=== PATIENT | female | born 1945 | race Caucasian/White ===

== ENCOUNTER 2016-05-20 17:14 | Inpatient (IN) | payer MEDICARE, BC, OTHER ==
[~2016-05-20] VITALS: Ht 162.6 cm; Wt 91.0 kg
[~2016-05-20 17:14] MED LIST: ACET325 PO; AMAR4TAB PO; AMLO5TAB96 PO; ANAS1TAB PO; ASPI81 PO; ATOR40TA PO; BUPR75TA PO; CYMB60CA PO; IMOD2TAB PO; METF-324 PO; NITR0.4S SL; NOVONP2 SQ; NOVORP2 SQ; STOO100C PO; TICA90 PO; TOPR50TA PO
[2016-05-20 17:16] VITALS: BP 190/90; PULSE 113; RESP 14; TEMP 98.4; O2SAT 99
[2016-05-20 17:26] VITALS: RESP 36
[2016-05-20] MEDS ORDERED: SODIUM CHLOR 0.9% 1000 ML INJ 1,000 ML IV ONE ×3 (18:30→20:30)
[2016-05-20] MEDS ORDERED: SODIUM CHLORIDE 0.9% FLUSH 5 ML FLUSH IVF PRN (18:30)
--- NOTE | 2016-05-20 18:33 | PD ---
HPI Chief Complaint: Diabetic Time Seen by Provider: 18:33 Travel History International Travel<30 days: No Contact w/Intl Traveler<30days: No Traveled to known affect area: No History of Present Illness HPI 71-year-old female with history of hypertension, diabetes, CAD with stent 2, sleep apnea, breast cancer status post mastectomy, currently in remission, presents to emergency department for evaluation of elevated blood glucose. Patient states that her blood glucose has been extremely high over the last month, sometimes as high as 540. She states she has not been able to keep anything down over the last 24 hours. She vomited all night. She reports urinary frequency being very thirsty. States she has had some blood in her urine. Denies any fever. States she has been chilled. She has been moderately short of breath with nonproductive cough. Denies any chest pain or tightness. She has been increasingly weak. She has had no headache or focal deficit. No other symptoms to report. PFSH Past Medical History Hx Anticoagulant Therapy: Yes (BRILANTA) Arthritis: Yes Asthma: No Autoimmune Disease: No Anxiety: Yes Depression: Yes Heart Rhythm Problems: No Cancer: Yes (LEFT BREAST) Cardiac Catheterization: Yes (X1 [place] IN [place]) Cardiovascular Problems: Yes (STENTS X 2) High Cholesterol: Yes Chemotherapy: Yes (CHEMO X 2. LAST DOSE 10 YEARS AGO BREAST CANCER.) Chest Pain: No Congestive Heart Failure: No COPD: No Cerebrovascular Accident: Yes Diabetes: Yes (METFORMIN AND INSULIN) Diminished Hearing: No Endocrine: Yes Gastrointestinal Disorders: Yes Genitourinary: No Headaches: Yes Hypertension: Yes Immune Disorder: No Implanted Vascular Access Dvce: No Musculoskeletal: Yes (NEUROPATHY OF LEGS and arms) Neurologic: Yes Psychiatric: Yes Respiratory: Yes (WHOOPING COUGH BABY) Immunizations Current: No Migraines: No Radiation Therapy: Yes Seizures: No Sleep Apnea: Yes Thyroid Disease: No Ulcer: No Menopausal: Yes : 2 Tubal Ligation: Yes Past Surgical History Abdominal Surgery: Yes (TUBAL LIGATION 1983) AICD: No Appendectomy: Yes Body Medical Devices: CARDIAC STENT Cardiac Surgery: Yes Section: Yes (1981) Endocrine Surgery: No Eye Surgery: Yes (MUSCLE RESECTION LT EYE. L EYE CATARACT REMOVED) Gynecologic Surgery: Yes (BILAT PARTIAL MASTECTOMY X2, ) Mastectomy: Yes (left sided) Oral Surgery: Yes (TONSILLECTOMY) Pacemaker: No Tonsillectomy: Yes Other Surgery: Yes (PARTIAL MASTECTOMY ) Social History Alcohol Use: No Tobacco Use: No Substance Use: No Allergies-Medications (Allergen,Severity, Reaction): Coded Allergies: No Known Allergies (Verified , 05/20/16) Reported Meds & Prescriptions Reported Meds & Active Scripts Active Nitrostat (Nitroglycerin) 0.4 Mg Sub 0.4 Mg SL DIRECTED PRN Brilinta 90 Mg Tab (Ticagrelor) 90 Mg Tab 90 Mg PO BID Novolin N (Insulin Isophane (Human)) 100 Units/Ml Inj 38 Units SQ DAILY 30 Days Reported Imodium A-D (Loperamide HCl) 2 Mg Tab 4 Mg PO ONCE PRN DO NOT EXCEED 8 CAPSULES/TABLETS 24 HOURS Novolin R (Insulin Human Regular) 100 Units/Ml Inj 17 Units SQ HS Bupropion Hcl (Bupropion HCl) 75 Mg Tab 75 Mg PO DAILY Atorvastatin 40 mg (Atorvastatin Calcium) 40 Mg Tab 40 Mg PO HS Tylenol (Acetaminophen) 325 Mg Tab 650 Mg PO Q4HR PRN Anastrozole 1 Mg Tab 1 Mg PO DAILY Colace (Docusate Sodium) 100 Mg Cap 100 Mg PO BID Cymbalta (Duloxetine HCl) 60 Mg Cap 60 Mg PO DAILY Glucophage (Metformin HCl) 1,000 Mg Tab 1,000 Mg PO BIDPC Norvasc (Amlodipine Besylate) 5 Mg Tab 5 Mg PO DAILY Aspirin 81 Mg Tab 81 Mg PO DAILY Amaryl (Glimepiride) 4 Mg Tab 4 Mg PO DAILYAC Toprol Xl (Metoprolol Succinate) 50 Mg Tabcr 50 Mg PO DAILY Review of Systems Except as stated in HPI: all other systems reviewed are Neg Physical Exam Narrative GENERAL: Well-nourished female patient, ambulatory with stents, in no acute distress SKIN: Warm and dry. HEAD: Atraumatic. Normocephalic. EYES: Pupils equal and round. Mild scleral icterus. No injection or drainage. ENT: No nasal bleeding or discharge. Mucous membranes pink and moist. NECK: Trachea midline. No JVD. CARDIOVASCULAR: Tachycardic rate and rhythm. No murmur appreciated. RESPIRATORY: Tachypneic. No accessory muscle use. Diminished to auscultation. Breath sounds equal bilaterally. GASTROINTESTINAL: Abdomen rotund, soft, moderate generalized tenderness with palpation. No rebound tenderness. No guarding. Normoactive bowel sounds. MUSCULOSKELETAL: No obvious deformities. No clubbing. No cyanosis. No edema. NEUROLOGICAL: Awake and alert. No obvious cranial nerve deficits. Motor grossly within normal limits. Normal speech. PSYCHIATRIC: Appropriate mood and affect; insight and judgment normal. Data Data Last Documented VS Vital Signs Date Time Temp Pulse Resp B/P Pulse Ox O2 Delivery O2 Flow Rate FiO2 05/20/16 20:24 96 20 173/80 98 Room Air 05/20/16 17:16 98.4 Orders Complete Blood Count With Diff (05/20/16 17:34) Blood Glucose (05/20/16 17:34) Comprehensive Metabolic Panel (05/20/16 17:34) Electrocardiogram (05/20/16 18:27) Chest, Single Ap (05/20/16 18:27) Ecg Monitoring (05/20/16 18:27) Bilateral Bp Monitoring (05/20/16 18:27) Iv Access Insert/Monitor (05/20/16 18:27) Oximetry (05/20/16 18:27) Oxygen Administration (05/20/16 18:27) Sodium Chloride 0.9% Flush (Ns Flush) (05/20/16 18:30) Sodium Chlor 0.9% 1000 Ml Inj (Ns 1000 M (05/20/16 18:30) Urinalysis - C+S If Indicated (05/20/16 18:33) Resp Blood Gas Venous (05/20/16 ) Prothrombin Time / Inr (Pt) (05/20/16 18:34) Act Partial Throm Time (Ptt) (05/20/16 18:34) Lactic Acid Sepsis Protocol (05/20/16 18:34) Magnesium (Mg) (05/20/16 18:34) Ckmb (Isoenzyme) Profile (05/20/16 18:34) Troponin I (05/20/16 18:34) Blood Culture (05/20/16 18:34) Acetaminophen (Tylenol) (05/20/16 19:00) Ct Abd/Pel W Iv Contrast(Rout) (05/20/16 ) Piperacil-Tazo 3.375 Gm Premix (Zosyn 3. (05/20/16 19:15) Blood Gas Venous (Vbg) (05/20/16 17:04) Beta Hydroxybutyrate (Acetone) (05/20/16 18:50) Lipase (05/20/16 18:50) Iohexol 350 Inj (Omnipaque 350 Inj) (05/20/16 19:48) Metronidazole 500 Mg Inj (Flagyl 500 Mg (05/20/16 20:15) Sodium Chlor 0.9% 1000 Ml Inj (Ns 1000 M (05/20/16 20:15) Diet Npo (05/21/16 Breakfast) Complete Blood Count With Diff (05/21/16 06:00) Comprehensive Metabolic Panel (05/21/16 06:00) Sodium Chlor 0.9% 1000 Ml Inj (Ns 1000 M (05/20/16 20:30) Mri Mrcp W/O Contrast (05/20/16 ) Cath For Specimen (05/20/16 20:38) Admit Order (Ed Use Only) (05/20/16 20:48) Urinary Catheter Management [id number].[id number] (05/20/16 20:50) Labs Laboratory Tests Test 05/20/16 05/20/16 05/20/16 05/20/16 17:04 18:15 18:50 20:15 Blood Gas Puncture Site I.V. Blood Gas Patient Temperature 98.6 Venous Blood pH 7.43 Venous Blood Partial Pressure 26 mmHg CO2 Venous Blood Partial Pressure 35 mmHg O2 Venous Blood HCO3 17 mmol/L Venous Blood Oxygen Saturation 65 % Venous Blood Oxygen Content 11.7 Vol % Venous Blood Base Excess -6.5 mmol/L Oxygen Delivery Device ROOM AIR Blood Gas Inspired Oxygen 21 % White Blood Count 13.6 TH/MM3 Red Blood Count 5.35 MIL/MM3 Hemoglobin 13.0 GM/DL Hematocrit 40.5 % Mean Corpuscular Volume 75.6 FL Mean Corpuscular Hemoglobin 24.3 PG Mean Corpuscular Hemoglobin 32.1 % Concent Red Cell Distribution Width 15.7 % Platelet Count 246 TH/MM3 Mean Platelet Volume 8.7 FL Neutrophils (%) (Auto) 83.8 % Lymphocytes (%) (Auto) 6.5 % Monocytes (%) (Auto) 9.2 % Eosinophils (%) (Auto) 0.1 % Basophils (%) (Auto) 0.4 % Neutrophils # (Auto) 11.4 TH/MM3 Lymphocytes # (Auto) 0.9 TH/MM3 Monocytes # (Auto) 1.2 TH/MM3 Eosinophils # (Auto) 0.0 TH/MM3 Basophils # (Auto) 0.1 TH/MM3 CBC Comment AUTO DIFF Differential Comment AUTO DIFF CONFIRMED Platelet Estimate NORMAL Platelet Morphology Comment NORMAL Red Cell Morphology Comment NORMAL Sodium Level 132 MEQ/L Potassium Level 4.2 MEQ/L Chloride Level 99 MEQ/L Carbon Dioxide Level 20.2 MEQ/L Anion Gap 13 MEQ/L Blood Urea Nitrogen 14 MG/DL Creatinine 1.14 MG/DL Estimat Glomerular Filtration 47 ML/MIN Rate Random Glucose 345 MG/DL Calcium Level 9.4 MG/DL Total Bilirubin 6.5 MG/DL Aspartate Amino Transf 377 U/L (AST/SGOT) Alanine Aminotransferase 315 U/L (ALT/SGPT) Alkaline Phosphatase 571 U/L Total Protein 7.3 GM/DL Albumin 3.7 GM/DL Prothrombin Time 12.0 SEC Prothromb Time International 1.1 RATIO Ratio Activated Partial 26.4 SEC Thromboplast Time Lactic Acid Level 3.4 mmol/L Magnesium Level 1.8 MG/DL Total Creatine Kinase 64 U/L Troponin I 0.85 NG/ML Lipase 90 U/L B-Hydroxybutyrate 2.25 MMOL/L Urine Color YELLOW Urine Turbidity CLEAR Urine pH 5.5 Urine Specific [place] 1.044 Urine Protein TRACE mg/dL Urine Glucose (UA) 1000 mg/dL Urine Ketones 80 mg/dL Urine Occult Blood TRACE Urine Nitrite NEG Urine Bilirubin SMALL Urine Urobilinogen LESS THAN 2.0 MG/DL Urine Leukocyte Esterase NEG Urine RBC 2 /hpf Urine WBC 1 /hpf Urine Squamous Epithelial 2 /hpf Cells Urine Bacteria OCC /hpf Urine Mucus FEW /lpf Microscopic Urinalysis Comment CULT NOT INDICATED MDM Medical Decision Making Medical Screen Exam Complete: Yes Emergency Medical Condition: Yes Medical Record Reviewed: Yes Differential Diagnosis DKA versus cholangitis versus cholelithiasis versus UTI versus sepsis Narrative Course 71-year-old female presents to the emergency department for evaluation of elevated blood glucose. Patient is noted to be tachypneic and tachycardic here in the emergency department, she is also with leukocytosis of 13.6. I have discussed the pt with my attending physician Dr. Weir who recommends IV antibiotics of zosyn and flagyl. Sepsis protocol is initiated. CMP is with elevated liver enzymes and bilirubin of 6.5. Lactic Acid is 3.[address] of the abdomen and pelvis shows dilatation of the common bile duct and intrahepatic biliary ductal dilatation. There is no mass or obstruction identified. I spoke with Dr. Michael, associate software application engineer second chef. He requests nothing by mouth, MRCP, CBC and CMP in the morning. I discussed the patient Dr. Morales, director of enrollment second chef. Patient will be admitted to his service Sepsis Criteria SIRS Criteria (2 or more): Heart rate over 90, WBC > 87500, < 4000 or > 10% bands Sepsis Criteria (SIRS+source): Infect source susp/known Severe Sepsis (+one): Lactate >2 Criteria Outcome: Meets severe sepsis criteria Diagnosis Primary Impression: Severe sepsis Additional Impressions: Transaminitis Dilated bile duct Hyperglycemia Elevated troponin Nausea & vomiting Qualified Code: R11.2 - Non-intractable vomiting with nausea, unspecified vomiting type Condition: Stable Gianna Garcia May 20, 2016 18:33
[2016-05-20 18:34] LABS: AUTOMATED NEUTROPHIL # 11.4 TH/MM3 (1.8-7.7); BASOPHIL # 0.1 TH/MM3 (0-0.2); BASOPHIL % 0.4 % (0.0-2.0); EOSINOPHIL % 0.1 % (0.0-4.0); HEMATOCRIT 40.5 % (35.0-46.0); LYMPH % 6.5 % (9.0-44.0); LYMPHOCYTE # 0.9 TH/MM3 (1.0-4.8); MEAN CELL VOLUME 75.6 FL (80.0-100.0); MEAN CORPUSCULAR HEMOGLOBIN 24.3 PG (27.0-34.0); MEAN CORPUSCULAR HGB CONC 32.1 % (32.0-36.0); MONO % 9.2 % (0.0-8.0); NEUT % 83.8 % (16.0-70.0); PLATELET COUNT 246 TH/MM3 (150-450); RED BLOOD COUNT 5.35 MIL/MM3 (4.00-5.30); RED CELL DISTRIBUTION WIDTH 15.7 % (11.6-17.2); WHITE BLOOD COUNT 13.6 TH/MM3 (4.0-11.0)
[2016-05-20 18:35] VITALS: BP 139/75; PULSE 114; RESP 20; O2SAT 98; O2SAT 99
[2016-05-20 18:42] LABS: HEMO FLAGS AUTO DIFF
[2016-05-20 18:56] LABS: ALT (GPT) 315 U/L (10-53); ANION GAP 13 MEQ/L (5-15); AST (GOT) 377 U/L (15-37); BICARBONATE 20.2 MEQ/L (21.0-32.0); BLOOD UREA NITROGEN 14 MG/DL (7-18); CHLORIDE 99 MEQ/L (98-107); GLOMERULAR FILTRATION RATE 47 ML/MIN (>89); POTASSIUM 4.2 MEQ/L (3.5-5.1); SODIUM (NA) 132 MEQ/L (136-145)
[2016-05-20 18:59] LABS: ALKALINE PHOSPHATASE 571 U/L (45-117); TOTAL BILIRUBIN ADULT 6.5 MG/DL (0.2-1.0)
[2016-05-20] MEDS ORDERED: ACETAMINOPHEN 325 MG TAB PO ONE (19:00)
[2016-05-20 19:12] LABS: PLATELET ESTIMATE SMEAR NORMAL (NORMAL); PLATELET MORPHOLOGY NORMAL (NORMAL); SCAN/DIFF AUTO DIFF CONFIRMED
[2016-05-20 19:15] LABS: BLOOD GAS VENOUS BASE EXCESS -6.5 mmol/L (-2-2); BLOOD GAS VENOUS HCO3 17 mmol/L (22-26); BLOOD GAS VENOUS O2 CONTENT 11.7 Vol % (9.0-17.0); BLOOD GAS VENOUS O2 HGB SAT 65 % (70-76); BLOOD GAS VENOUS PCO2 26 mmHg (44-48); BLOOD GAS VENOUS PO2 35 mmHg (35-40); BLOOD GAS VENOUS pH 7.43 (7.360-7.400); CRITICAL VALUE NO; DRAW SITE I.V.; FIO2 21 %; OXYGEN DEVICE ROOM AIR; STAT YES; TEMP CORR TO 98.6
[2016-05-20] MEDS ORDERED: PIPERACIL-TAZO 3.375 GM PREMIX 50 ML IV ONE (19:15)
[2016-05-20 19:45] LABS: APTT (PATIENT) 26.4 SEC (24.3-30.1); INTERNATIONAL NORMALIZED RATIO 1.1 RATIO
--- NOTE | 2016-05-20 19:46 | RADRPT ---
EXAM DATE/TIME: 05/20/2016 18:48 [facility] COMPARISON: CHEST SINGLE AP, June 02, 2015, 13:51. INDICATIONS : Chest pain MEDICAL HISTORY : Hypertension. Diabetes mellitus type II. SURGICAL HISTORY : Cardiac stent,Lumpectomy to left side ENCOUNTER: Initial ACUITY: 3 days PAIN SCORE: 0/10 LOCATION: Bilateral chest FINDINGS: A single view of the chest demonstrates the lungs to be symmetrically aerated without evidence of mas s, infiltrate or effusion. The cardiomediastinal contours are unremarkable. Osseous structures are intact. There are multiple overlying electrocardiogram leads. CONCLUSION: No acute disease. Catracho Haas MD on May 20, 2016 at 19:45 Board Certified Radiologist. This report was verified electronically.
[2016-05-20] MEDS ORDERED: IOHEXOL 350 MG/ML 10 ML VIAL (for RAD DIAG) IV ONE (19:48)
[2016-05-20 19:53] LABS: BETA-HYDROXYBUTYRATE 2.25 MMOL/L (0.00-0.39); MAGNESIUM 1.8 MG/DL (1.5-2.5)
--- NOTE | 2016-05-20 20:01 | RADRPT ---
EXAM DATE/TIME: 05/20/2016 19:41 [facility] COMPARISON: CT ABDOMEN & PELVIS W/O CONTRAST, December 24, 2014, 11:37. US ABDOMEN - GALLBLADDER, June 02, 2015 , 15:15. INDICATIONS : Hematura for three weeks. Known gallstones. IV CONTRAST: 75 cc Omnipaque 350 (iohexol) IV ORAL CONTRAST: No oral contrast ingested. RADIATION DOSE: 11.76 CTDIvol (mGy) MEDICAL HISTORY : Carcinoma, breast. SURGICAL HISTORY : Mastectomy, bilateral. ENCOUNTER: Initial ACUITY: 1 day PAIN SCALE: 0/10 LOCATION: Bilateral abdomen. TECHNIQUE: Volumetric scanning of the abdomen and pelvis was performed. Using automated exposure control and ad justment of the mA and/or kV according to patient size, radiation dose was kept as low as reasonably achievable to obtain optimal diagnostic quality images. FINDINGS: LOWER LUNGS: The visualized lower lungs are clear. LIVER: The liver remains normal in size and shape. There is mild intrahepatic central biliary ductal dilatat ion with prominence of common bile duct now noted measuring up to approximately 1 cm. No definite kuldeep ling defect is identified within the duct. The gallbladder is normal in size and shape with densely c alcified 1 cm gallstone again noted. There is no definite wall thickening or inflammatory change. SPLEEN: Normal size without lesion. PANCREAS: Within normal limits. KIDNEYS: Normal in size and shape. There is no mass, stone or hydronephrosis. ADRENAL GLANDS: Within normal limits. VASCULAR: There is no aortic aneurysm. BOWEL/MESENTERY: There is a small hiatal hernia. The stomach, small bowel, and colon demonstrate no acute abnormality. There is no free intraperitoneal air or fluid. ABDOMINAL WALL: Within normal limits. RETROPERITONEUM: There is no lymphadenopathy. BLADDER: No wall thickening or mass. REPRODUCTIVE: Within normal limits. INGUINAL: There is no lymphadenopathy or hernia. MUSCULOSKELETAL: Within normal limits for patient age. CONCLUSION: 1. The kidneys and ureters are unremarkable in appearance with no renal calculi, mass or hydronephros is. 2. Evidence of mild central intrahepatic biliary ductal dilatation and dilatation of the common bile duct with no definite filling defect or mass identified.. 3. Small hiatal hernia. 4. Cholelithiasis again noted with no gallbladder wall thickening or inflammatory change. Catracho Haas MD on May 20, 2016 at 19:53 Board Certified Radiologist. This report was verified electronically.
[2016-05-20] MEDS ORDERED: metroNIDAZOLE 500 MG INJ 100 ML IV ONE (20:15)
[2016-05-20 20:24] VITALS: BP 173/80; PULSE 96; RESP 20; O2SAT 98
[2016-05-20 20:43] LABS: BACTERIA, URINE OCC /hpf; BLOOD, URINE TRACE (NEG); COMMENT (UR) CULT NOT INDICATED; CULTURE IF INDICATED CULT NOT INDICATED; GLUCOSE,URINE 1000 mg/dL (NEG); KETONE, URINE 80 mg/dL (NEG); MUCUS URINE FEW /lpf (OCC); NITRITE,URINE NEG (NEG); PH, URINE 5.5 (5.0-8.5); SQUAMOUS EPITHELIAL CELL URINE 2 /hpf (0-5); URINE COLOR YELLOW (YELLW/STRAW)
--- NOTE | 2016-05-20 21:17 | HHI.HP ---
HPI Service Critical Care Medicine Primary Care Physician Beltran Syed MD Admission Diagnosis Hyperglycemia; transamintis; nausea/vomiting; elevated trop Diagnosis: Chief Complaint: Vomiting, generalized abdominal pain. Travel History International Travel<30 Days: No Contact w/Intl Traveler <30 Da: No Traveled to Known Affected Are: No History of Present Illness 71 y/o woman with multiple medical problems including DM, HTN, CAD presents with several day history of vomiting and abdominal discomfort/fullness. No substernl cheat pressure or pain (which she gets with angina). LFTs all elevated and consistent with biliary obstruction. CT abdomen with dilated bile ducts, no obvious obstruction. Going now for MRCP. Review of Systems ROS See HPI. Past Family Social History Allergies: Coded Allergies: No Known Allergies (Verified , 05/20/16) Past Medical History Past Medical History Hx Anticoagulant Therapy: Yes (BRILANTA) Arthritis: Yes Asthma: No Autoimmune Disease: No Anxiety: Yes Depression: Yes Heart Rhythm Problems: No Cancer: Yes (LEFT BREAST) Cardiac Catheterization: Yes (X1 STENTS IN [place]) Cardiovascular Problems: Yes (STENTS X 2) High Cholesterol: Yes Chemotherapy: Yes (CHEMO X 2. LAST DOSE 10 YEARS AGO BREAST CANCER.) Chest Pain: No Congestive Heart Failure: No COPD: No Cerebrovascular Accident: Yes Diabetes: Yes (METFORMIN AND INSULIN) Diminished Hearing: No Endocrine: Yes Gastrointestinal Disorders: Yes Genitourinary: No Headaches: Yes Hypertension: Yes Immune Disorder: No Implanted Vascular Access Dvce: No Musculoskeletal: Yes (NEUROPATHY OF LEGS and arms) Neurologic: Yes Psychiatric: Yes Respiratory: Yes (WHOOPING COUGH BABY) Immunizations Current: No Migraines: No Radiation Therapy: Yes Seizures: No Sleep Apnea: Yes Thyroid Disease: No Ulcer: No Menopausal: Yes : 2 Tubal Ligation: Yes Past Surgical History Abdominal Surgery: Yes (TUBAL LIGATION 1983) AICD: No Appendectomy: Yes Body Medical Devices: CARDIAC STENT Cardiac Surgery: Yes Section: Yes (1981) Endocrine Surgery: No Eye Surgery: Yes (MUSCLE RESECTION LT EYE. L EYE CATARACT REMOVED) Gynecologic Surgery: Yes (BILAT PARTIAL MASTECTOMY X2, ) Mastectomy: Yes (left sided) Oral Surgery: Yes (TONSILLECTOMY) Pacemaker: No Tonsillectomy: Yes Other Surgery: Yes (PARTIAL MASTECTOMY ) Social History Alcohol Use: No Tobacco Use: No Substance Use: No Allergies-Medications Allergies-Medications (Allergen,Severity, Reaction): Coded Allergies: No Known Allergies (Verified , 05/20/16) Reported Meds & Prescriptions Reported Meds & Active Scripts Active Nitrostat (Nitroglycerin) 0.4 Mg Sub 0.4 Mg SL DIRECTED PRN Brilinta 90 Mg Tab (Ticagrelor) 90 Mg Tab 90 Mg PO BID Novolin N (Insulin Isophane (Human)) 100 Units/Ml Inj 38 Units SQ DAILY 30 Days Reported Imodium A-D (Loperamide HCl) 2 Mg Tab 4 Mg PO ONCE PRN DO NOT EXCEED 8 CAPSULES/TABLETS 24 HOURS Novolin R (Insulin Human Regular) 100 Units/Ml Inj 17 Units SQ HS Bupropion Hcl (Bupropion HCl) 75 Mg Tab 75 Mg PO DAILY Atorvastatin 40 mg (Atorvastatin Calcium) 40 Mg Tab 40 Mg PO HS Tylenol (Acetaminophen) 325 Mg Tab 650 Mg PO Q4HR PRN Anastrozole 1 Mg Tab 1 Mg PO DAILY Colace (Docusate Sodium) 100 Mg Cap 100 Mg PO BID Cymbalta (Duloxetine HCl) 60 Mg Cap 60 Mg PO DAILY Glucophage (Metformin HCl) 1,000 Mg Tab 1,000 Mg PO BIDPC Norvasc (Amlodipine Besylate) 5 Mg Tab 5 Mg PO DAILY Aspirin 81 Mg Tab 81 Mg PO DAILY Amaryl (Glimepiride) 4 Mg Tab 4 Mg PO DAILYAC Toprol Xl (Metoprolol Succinate) 50 Mg Tabcr 50 Mg PO DAILY Physical Exam Vital Signs Vital Signs Date Time Temp Pulse Resp B/P Pulse Ox O2 Delivery O2 Flow Rate FiO2 05/20/16 20:24 96 20 173/80 98 Room Air 05/20/16 18:35 114 20 139/75 99 Room Air 05/20/16 18:35 98 Room Air 05/20/16 18:35 99 Room Air 05/20/16 18:35 114 20 98 Room Air 05/20/16 17:26 36 05/20/16 17:16 98.4 113 14 190/90 99 Room Air Physical Exam Gen: Ill-appearing elderly woman in acute distress Head: Atraumatic, mucus membranes dry. Neck: Supple, airway widely patent. Lungs: Clear, no wheezes or crackles. Heart: RRR, no m,r. Neck veins flat. Abdomen: Soft, large. No peritoneal irritation. BS active. Minimal tenderness upper abdomen. Extremities: Warm, well perfused. No edema. Skin: Poor turgor. Neuro: O X 3, cooperative. Moves 4 limbs to command. Speech clear. Laboratory Laboratory Tests Test 05/20/16 05/20/16 05/20/16 05/20/16 17:04 18:15 18:50 20:15 Blood Gas Puncture Site I.V. Blood Gas Patient Temperature 98.6 Venous Blood pH 7.43 Venous Blood Partial Pressure 26 CO2 Venous Blood Partial Pressure 35 O2 Venous Blood HCO3 17 Venous Blood Oxygen Saturation 65 Venous Blood Oxygen Content 11.7 Venous Blood Base Excess -6.5 Oxygen Delivery Device ROOM AIR Blood Gas Inspired Oxygen 21 White Blood Count 13.6 Red Blood Count 5.35 Hemoglobin 13.0 Hematocrit 40.5 Mean Corpuscular Volume 75.6 Mean Corpuscular Hemoglobin 24.3 Mean Corpuscular Hemoglobin 32.1 Concent Red Cell Distribution Width 15.7 Platelet Count 246 Mean Platelet Volume 8.7 Neutrophils (%) (Auto) 83.8 Lymphocytes (%) (Auto) 6.5 Monocytes (%) (Auto) 9.2 Eosinophils (%) (Auto) 0.1 Basophils (%) (Auto) 0.4 Neutrophils # (Auto) 11.4 Lymphocytes # (Auto) 0.9 Monocytes # (Auto) 1.2 Eosinophils # (Auto) 0.0 Basophils # (Auto) 0.1 CBC Comment AUTO DIFF Differential Comment AUTO DIFF CONFIRMED Platelet Estimate NORMAL Platelet Morphology Comment NORMAL Red Cell Morphology Comment NORMAL Sodium Level 132 Potassium Level 4.2 Chloride Level 99 Carbon Dioxide Level 20.2 Anion Gap 13 Blood Urea Nitrogen 14 Creatinine 1.14 Estimat Glomerular Filtration 47 Rate Random Glucose 345 Calcium Level 9.4 Total Bilirubin 6.5 Aspartate Amino Transf 377 (AST/SGOT) Alanine Aminotransferase 315 (ALT/SGPT) Alkaline Phosphatase 571 Total Protein 7.3 Albumin 3.7 Prothrombin Time 12.0 Prothromb Time International 1.1 Ratio Activated Partial 26.4 Thromboplast Time Lactic Acid Level 3.4 Magnesium Level 1.8 Total Creatine Kinase 64 Troponin I 0.85 Lipase 90 B-Hydroxybutyrate 2.25 Urine Color YELLOW Urine Turbidity CLEAR Urine pH 5.5 Urine Specific [place] 1.044 Urine Protein TRACE Urine Glucose (UA) 1000 Urine Ketones 80 Urine Occult Blood TRACE Urine Nitrite NEG Urine Bilirubin SMALL Urine Urobilinogen LESS THAN 2.0 Urine Leukocyte Esterase NEG Urine RBC 2 Urine WBC 1 Urine Squamous Epithelial 2 Cells Urine Bacteria OCC Urine Mucus FEW Microscopic Urinalysis Comment CULT NOT INDICATED Date/Time Procedure Status Source Growth 05/20/16 18:55 Aerobic Blood Culture Received Blood Peripheral Pending 05/20/16 18:55 Anaerobic Blood Culture Received Blood Peripheral Pending Result Diagram: 05/20/16181405/20/161814 Assessment and Plan Problem List: (1) Transaminitis ICD Code: R74.0 Status: Acute (2) Elevated troponin ICD Code: R79.89 Status: Acute (3) Dilated bile duct ICD Code: K83.8 Status: Acute (4) Severe sepsis ICD Code: A41.9 Status: Acute (5) Hyperglycemia ICD Code: R73.9 Status: Acute (6) Nausea & vomiting ICD Code: R11.2 Status: Acute (7) Hypertension ICD Code: I10 Status: Acute (8) NSTEMI (non-ST elevation myocardial infarction) ICD Code: I21.4 Status: Acute (9) Diabetes mellitus ICD Code: E11.9 Status: Acute Assessment and Plan Plan: CV: Cardene drip until she can tolerate oral meds. Aggressive hydration. Follow cardiac markers, RESP: Suppl O2 to keep sats > 91% NEURO: Minimal sedation. RENAL: Hydration with isotonic solution. ENDO: Levemir and q6h coverage. Hold oral agents. GI: NPO except meds with sips. : Niño for hourly output. HEME: Serial wbc. ID: Cultures. Broad abx coverage for biliary infection. Check urine. PX: Pepcid, heparin TID. Overall impression: Critically ill with dehydration despite renal indices. Severe sepsis and probable biliary obstruction. Diabetes out of control, elevated lactic acid. Critical care 45 mins aside from procedures Problem Qualifiers (1) Nausea & vomiting: Qualified Code: R11.2 - Non-intractable vomiting with nausea, unspecified vomiting type Serge Alexander MD May 20, 2016 21:17
[2016-05-20 21:25] LABS: LACTIC ACID GHOST NOT REPORTABLE
[2016-05-20] MEDS ORDERED: CHLORHEXIDINE GLUCONATE 2 % 1 PACK (2 CLOTHS) TOP PRN (21:30)
[2016-05-20] MEDS ORDERED: ACETAMINOPHEN 325 MG TAB PO PRN ×2 (21:30→22:00)
[2016-05-20] MEDS ORDERED: SODIUM CHLORIDE 0.9% FLUSH 5 ML FLUSH IV FLUSH PRN (21:30)
[2016-05-20] MEDS ORDERED: GLUCAGON 1 MG/ML VIAL OTHER PRN (21:30)
[2016-05-20] MEDS ORDERED: DEXTROSE 50% IN WATER 50 ML VIAL(D50) IV PUSH PRN (21:30)
[2016-05-20] MEDS ORDERED: ONDANSETRON HCL 4 MG/2 ML VIAL IV PRN (22:00)
[2016-05-20] MEDS ORDERED: niCARdipine INJ 25 MG in SODIUM CHLOR 0.9% 250 ML INJ 250 ML IV PRN (22:00)
[2016-05-20] MEDS ORDERED: RESP: ALBUTEROL 2.5 MG/IPRATROPIUM 0.5 MG NEB (PRN) INH (22:00)
[2016-05-20] MEDS ORDERED: MISCELLANEOUS NURSING INFORMATION XX SCH (22:00)
[2016-05-20 22:36] VITALS: BP 113/56; PULSE 94; RESP 20; O2SAT 94
--- NOTE | 2016-05-20 22:49 | RADRPT ---
EXAM DATE/TIME: 05/20/2016 21:23 [facility] COMPARISON: CT ABDOMEN & PELVIS W CONTRAST, May 20, 2016, 19:41. INDICATIONS : Obstruction. MEDICAL HISTORY : Carcinoma, breast. SURGICAL HISTORY : Tonsillectomy. Appendectomy. ENCOUNTER: Initial ACUITY: 1 week PAIN SCORE: 7/10 LOCATION: Bilateral upper quadrant abdomen area. TECHNIQUE: Multiplanar, multisequence magnetic resonance imaging of the abdomen was performed. High-resolution 3D dataset was utilized to reconstruct maximum-intensity projection (MIP) images. FINDINGS: INTRAHEPATIC BILE DUCTS: There is mild central intrahepatic biliary ductal dilatation with no filling defects. EXTRAHEPATIC BILE DUCTS: The common bile duct measures up to 1.2 cm in diameter. There are 2 filling defects in the distal erik t. The larger measures up to approximately 9 x 9 mm. There is a smaller more distal 3 x 3 mm defect. GALLBLADDER: A 1 cm gallstone is again noted. There is no gallbladder wall thickening or pericholecystic fluid. LIVER: Normal size and signal intensity. No concerning liver lesion is identified on this non-contrast exam. PANCREAS: The main pancreatic duct is normal in size. There is no significant anatomical variant. Signal inte nsity is within normal limits. No mass is visualized on this non-contrast exam. OTHER: The remaining visualized structures demonstrate no acute abnormality on this non-contrast exam. CONCLUSION: 1. Dilatation of the common bile duct and central intrahepatic biliary system with multiple filling d efects in the distal common bile duct most consistent with gallstones. 2. Cholelithiasis. Catracho Haas MD on May 20, 2016 at 22:44 Board Certified Radiologist. This report was verified electronically.
[2016-05-20] MEDS: metroNIDAZOLE 500 MG INJ 100 ML IV SCH (23:27)
[2016-05-20 23:30] VITALS: BP 145/65; PULSE 81; PULSE 86; RESP 17; TEMP 99.2; O2SAT 100
[2016-05-21] VITALS (15 sets, daily range): BP systolic 94–191; BP diastolic 68–96; PULSE 73–106; RESP 14–20; TEMP 98.3–99.2; O2SAT 94–99
[2016-05-21] MEDS: HEPARIN SODIUM - SQ 10,000 UNITS/ML VIAL SQ SCH ×4 (00:01→20:46)
[2016-05-21] MEDS: INSULIN DETEMIR 100 UNITS/ML VIAL SQ SCH ×3 (00:01→20:45)
[2016-05-21] MEDS: INSULIN ASPART SUPPLEMENTAL SCALE SQ SCH ×5 (00:01→20:46)
[2016-05-21] MEDS: CHLORHEXIDINE GLUCONATE 2 % 1 PACK (2 CLOTHS) TOP SCH (04:00)
[2016-05-21 04:05] LABS: AUTOMATED NEUTROPHIL # 6.7 TH/MM3 (1.8-7.7); BASOPHIL % 0.3 % (0.0-2.0); EOSINOPHIL % 0.3 % (0.0-4.0); LYMPH % 9.1 % (9.0-44.0); LYMPHOCYTE # 0.8 TH/MM3 (1.0-4.8); MEAN CELL VOLUME 75.8 FL (80.0-100.0); MEAN CORPUSCULAR HEMOGLOBIN 24.7 PG (27.0-34.0); MEAN CORPUSCULAR HGB CONC 32.6 % (32.0-36.0); MONO % 12.2 % (0.0-8.0); NEUT % 78.1 % (16.0-70.0); PLATELET COUNT 189 TH/MM3 (150-450); RED BLOOD COUNT 4.62 MIL/MM3 (4.00-5.30); WHITE BLOOD COUNT 8.6 TH/MM3 (4.0-11.0)
[2016-05-21 04:08] LABS: HEMO FLAGS AUTO DIFF
[2016-05-21 04:10] LABS: ALKALINE PHOSPHATASE 459 U/L (45-117); ALT (GPT) 218 U/L (10-53); ANION GAP 11 MEQ/L (5-15); AST (GOT) 226 U/L (15-37); BICARBONATE 19.2 MEQ/L (21.0-32.0); BLOOD UREA NITROGEN 10 MG/DL (7-18); CHLORIDE 109 MEQ/L (98-107); GLOMERULAR FILTRATION RATE 67 ML/MIN (>89); MAGNESIUM 1.9 MG/DL (1.5-2.5); POTASSIUM 3.6 MEQ/L (3.5-5.1); SODIUM (NA) 139 MEQ/L (136-145)
[2016-05-21 04:15] LABS: TOTAL BILIRUBIN ADULT 5.6 MG/DL (0.2-1.0)
[2016-05-21] MEDS: metroNIDAZOLE 500 MG INJ 100 ML IV SCH ×4 (04:48→20:47)
[2016-05-21] MEDS: PIPERACIL-TAZO 3.375 GM PREMIX 50 ML IV SCH ×3 (04:49→20:45)
[2016-05-21 04:57] LABS: OVALOCYTES 1+ (NORMAL); SCAN/DIFF AUTO DIFF CONFIRMED
[2016-05-21] MEDS: DOCUSATE SODIUM 100 MG CAP PO SCH ×2 (09:00→20:47)
[2016-05-21] MEDS: ANASTROZOLE 1 MG TAB PO SCH (09:05)
[2016-05-21] MEDS: METOPROLOL SUCCINATE 50 MG EXTENDED RELEASE TAB PO SCH (09:05)
[2016-05-21] MEDS: buPROPion HCL 75 MG TAB PO SCH (09:06)
[2016-05-21] MEDS: ASPIRIN 81 MG CHEW TAB PO SCH (09:06)
[2016-05-21] MEDS: TICAGRELOR 90 MG TAB PO SCH ×2 (09:06→20:46)
[2016-05-21] MEDS: amLODIPine BESYLATE 5 MG TAB PO SCH (09:06)
[2016-05-21] MEDS: PANTOPRAZOLE SODIUM 40 MG VIAL IV SCH (09:06)
[2016-05-21] MEDS: DULoxetine HCl DR 60 MG CAP PO SCH (09:06)
[2016-05-21] MEDS: SODIUM CHLORIDE 0.9% FLUSH 5 ML FLUSH IV FLUSH SCH ×2 (09:07→20:45)
[2016-05-21] MEDS: SODIUM CHLOR 0.9% 1000 ML INJ 1,000 ML IV SCH ×3 (09:07→17:52)
--- NOTE | 2016-05-21 09:23 | PD.CONS ---
HPI History of Present Illness This is a 71 year old female patient who came to the emergency room for evaluation of nausea, vomiting, and abdominal pain. She reports that her symptoms began suddenly Friday night. She reports that she started having diffuse abdominal pain which she describes as a severe dull ache Friday night. There is no radiation. She did have associated nausea and vomiting with bilious material but no hematemesis. She took Pepto-Bismol and after about 5 hours she was able to get a little bit of sleep, but she woke up again with severe pain and therefore decided to come to the emergency room. She denies any fevers or chills. She denies any diarrhea. She has lost about 11 pounds over the past 3 months but states this is related to diet changes and was intentional. She denies any history of gallbladder issues or pancreatitis. She does have a history of breast cancer 2 treated with bilateral partial mastectomy, chemotherapy, and radiation. She reports she's been in remission for 6 years. On admission she was noted to have elevated LFTs with an obstructive pattern. CT scan abdomen and pelvis with IV contrast (05/20/16) revealed the kidneys and ureters are unremarkable in appearance with no renal calculi, mass, or hydronephrosis, evidence of mild central intrahepatic biliary ductal dilatation and dilation of the common bile duct with no definite filling defect or mass identified, small hiatal hernia, cholelithiasis again noted with no gallbladder wall thickening or inflammatory change. MRCP without contrast () revealed dilation of the common bile duct and central intrahepatic biliary system with multiple filling defects in the distal common bile duct most consistent with gallstones, cholelithiasis. D/W patient and daughter (by phone) findings, recommendations for ERCP with possible sphincterotomy, possible stent placement- procedure, risk (including increased risk of bleeding given the fact that shes been on Brilinta, and risk of pancreatitis from the dye ), benefit. Both the patient and the daughter verbalized understanding and are agreeable. (Rosmery Montenegro) PFSH Past Medical History Hypertension Diabetes Coronary artery disease Neuropathy History of breast cancer 2 (status post bilateral partial mastectomy/ chemotherapy/radiation) Obstructive sleep apnea Hyperlipidemia Anxiety/depression Past Surgical History Hernia catheterization with stent placement Bilateral partial mastectomy Tonsillectomy Nesmith tubal ligation Left cataract surgery (Rosmery Monten[place]ro) Coded Allergies: No Known Allergies (Verified , 05/20/16) Medications Allergies Coded Allergies Type Severity Reaction Last Updated Verified No Known Allergies 05/20/16 Yes Active Scripts Medications Dose Route/Sig Days Date Category Dose Instructions Nitrostat (Nitroglycerin) 0.4 Mg Sub 0.4 Mg SL DIRECTED PRN 06/06/15 Rx Brilinta 90 Mg Tab (Ticagrelor) 90 Mg Tab 90 Mg PO BID 06/06/15 Rx Novolin N (Insulin Isophane (Human)) 100 Units/Ml Inj 38 Units SQ DAILY 30 06/06/15 Rx Imodium A-D (Loperamide HCl) 2 Mg Tab 4 Mg PO ONCE PRN 06/02/15 Reported DO NOT EXCEED 8 CAPSULES/TABLETS 24 HOURS Novolin R (Insulin Human Regular) 100 Units/Ml Inj 17 Units SQ HS 06/02/15 Reported Bupropion Hcl (Bupropion HCl) 75 Mg Tab 75 Mg PO DAILY 06/02/15 Reported Atorvastatin 40 mg (Atorvastatin Calcium) 40 Mg Tab 40 Mg PO HS 06/02/15 Reported Tylenol (Acetaminophen) 325 Mg Tab 650 Mg PO Q4HR PRN 07/29/12 Reported Anastrozole 1 Mg Tab 1 Mg PO DAILY 07/27/12 Reported Colace (Docusate Sodium) 100 Mg Cap 100 Mg PO BID 02/27/10 Reported Cymbalta (Duloxetine HCl) 60 Mg Cap 60 Mg PO DAILY 02/27/10 Reported Glucophage (Metformin HCl) 1,000 Mg Tab 1,000 Mg PO BIDPC 02/27/10 Reported Norvasc (Amlodipine Besylate) 5 Mg Tab 5 Mg PO DAILY 02/27/10 Reported Aspirin 81 Mg Tab 81 Mg PO DAILY 02/27/10 Reported Amaryl (Glimepiride) 4 Mg Tab 4 Mg PO DAILYAC 02/27/10 Reported Toprol Xl (Metoprolol Succinate) 50 Mg Tabcr 50 Mg PO DAILY 02/27/10 Reported Family History No family history of known cancer Social History No tobacco or illicit drug use or alcohol (oRsmery Monten[place]ro) Review of Systems Constitutional: COMPLAINS OF: Fatigue, Weight loss (plan), Change in appetite, DENIES: Fever, Chills Respiratory: DENIES: Cough, Shortness of breath Cardiovascular: DENIES: Chest pain Gastrointestinal: COMPLAINS OF: Abdominal pain, Nausea, Vomiting, Heartburn, Hematemesis (belching), DENIES: Black stools, Bloody stools, Constipation, Diarrhea Musculoskeletal: DENIES: Joint pain Integumentary: COMPLAINS OF: Pruritus, DENIES: Rash Hematologic/lymphatic: DENIES: Bruising Psychiatric: DENIES: Confusion (Rosmery Monten[place]) GI Exam Vitals I&O Vital Signs Date Time Temp Pulse Resp B/P Pulse Ox O2 Delivery O2 Flow Rate FiO2 05/21/16 06:00 106 05/21/16 06:00 106 14 143/75 94 05/21/16 05:00 97 14 181/77 95 05/21/16 04:00 105 05/21/16 04:00 98.8 105 14 94/70 99 05/21/16 03:00 104 14 136/73 96 05/21/16 02:00 96 21 05/21/16 02:00 93 16 138/78 99 05/21/16 02:00 93 05/21/16 01:00 97 16 149/68 97 05/21/16 00:00 99.2 85 16 125/73 99 05/21/16 00:00 93 05/20/16 23:30 81 05/20/16 23:30 99.2 86 17 145/65 100 05/20/16 22:36 94 20 113/56 94 Room Air 05/20/16 20:24 96 20 173/80 98 Room Air 05/20/16 18:35 114 20 139/75 99 Room Air 05/20/16 18:35 98 Room Air 05/20/16 18:35 99 Room Air 05/20/16 18:35 114 20 98 Room Air 05/20/16 17:26 36 05/20/16 17:16 98.4 113 14 190/90 99 Room Air I/O 05/20/16 05/20/16 05/20/16 05/21/16 05/21/16 05/21/16 07:00 15:00 23:00 07:00 15:00 23:00 Intake Total 2763 ml Output Total 1350 ml Balance 1413 ml Intake IV Total 2763 ml Output Urine Total 1350 ml # Bowel Movements 0 Imaging Last Impressions Chest X-Ray 05/20/161826 Signed Impressions: Service Date/Time: Friday, May 20, 2016 18:48 - CONCLUSION: No acute disease. Catracho Haas MD Cholangiopancreatography MRI 05/20/16 0000 Signed Impressions: Service Date/Time: Friday, May 20, 2016 21:23 - CONCLUSION: 1. Dilatation of the common bile duct and central intrahepatic biliary system with multiple filling defects in the distal common bile duct most consistent with gallstones. 2. Cholelithiasis. Catracho Haas MD Abdomen/Pelvis CT 05/20/16 0000 Signed Impressions: Service Date/Time: Friday, May 20, 2016 19:41 - CONCLUSION: 1. The kidneys and ureters are unremarkable in appearance with no renal calculi, mass or hydronephrosis. 2. Evidence of mild central intrahepatic biliary ductal dilatation and dilatation of the common bile duct with no definite filling defect or mass identified.. 3. Small hiatal hernia. 4. Cholelithiasis again noted with no gallbladder wall thickening or inflammatory change. Catracho Haas MD Laboratory Test 05/20/16 05/20/16 05/20/16 05/20/16 17:04 18:15 18:50 20:15 Blood Gas Puncture Site I.V. Blood Gas Patient Temperature 98.6 Venous Blood pH 7.43 Venous Blood Partial Pressure 26 mmHg CO2 Venous Blood Partial Pressure 35 mmHg O2 Venous Blood HCO3 17 mmol/L Venous Blood Oxygen Saturation 65 % Venous Blood Oxygen Content 11.7 Vol % Venous Blood Base Excess -6.5 mmol/L Oxygen Delivery Device ROOM AIR Blood Gas Inspired Oxygen 21 % White Blood Count 13.6 TH/MM3 Red Blood Count 5.35 MIL/MM3 Hemoglobin 13.0 GM/DL Hematocrit 40.5 % Mean Corpuscular Volume 75.6 FL Mean Corpuscular Hemoglobin 24.3 PG Mean Corpuscular Hemoglobin 32.1 % Concent Red Cell Distribution Width 15.7 % Platelet Count 246 TH/MM3 Mean Platelet Volume 8.7 FL Neutrophils (%) (Auto) 83.8 % Lymphocytes (%) (Auto) 6.5 % Monocytes (%) (Auto) 9.2 % Eosinophils (%) (Auto) 0.1 % Basophils (%) (Auto) 0.4 % Neutrophils # (Auto) 11.4 TH/MM3 Lymphocytes # (Auto) 0.9 TH/MM3 Monocytes # (Auto) 1.2 TH/MM3 Eosinophils # (Auto) 0.0 TH/MM3 Basophils # (Auto) 0.1 TH/MM3 CBC Comment AUTO DIFF Differential Comment AUTO DIFF CONFIRMED Platelet Estimate NORMAL Platelet Morphology Comment NORMAL Red Cell Morphology Comment NORMAL Sodium Level 132 MEQ/L Potassium Level 4.2 MEQ/L Chloride Level 99 MEQ/L Carbon Dioxide Level 20.2 MEQ/L Anion Gap 13 MEQ/L Blood Urea Nitrogen 14 MG/DL Creatinine 1.14 MG/DL Estimat Glomerular Filtration 47 ML/MIN Rate Random Glucose 345 MG/DL Calcium Level 9.4 MG/DL Total Bilirubin 6.5 MG/DL Aspartate Amino Transf 377 U/L (AST/SGOT) Alanine Aminotransferase 315 U/L (ALT/SGPT) Alkaline Phosphatase 571 U/L Total Protein 7.3 GM/DL Albumin 3.7 GM/DL Prothrombin Time 12.0 SEC Prothromb Time International 1.1 RATIO Ratio Activated Partial 26.4 SEC Thromboplast Time Lactic Acid Level 3.4 mmol/L Magnesium Level 1.8 MG/DL Total Creatine Kinase 64 U/L Troponin I 0.85 NG/ML Lipase 90 U/L B-Hydroxybutyrate 2.25 MMOL/L Urine Color YELLOW Urine Turbidity CLEAR Urine pH 5.5 Urine Specific [place] 1.044 Urine Protein TRACE mg/dL Urine Glucose (UA) 1000 mg/dL Urine Ketones 80 mg/dL Urine Occult Blood TRACE Urine Nitrite NEG Urine Bilirubin SMALL Urine Urobilinogen LESS THAN 2.0 MG/DL Urine Leukocyte Esterase NEG Urine RBC 2 /hpf Urine WBC 1 /hpf Urine Squamous Epithelial 2 /hpf Cells Urine Bacteria OCC /hpf Urine Mucus FEW /lpf Microscopic Urinalysis Comment CULT NOT INDICATED Test 05/20/16 05/20/16 05/21/16 22:27 23:10 03:05 Lactic Acid Level 1.7 mmol/L 0.9 mmol/L Troponin I 0.56 NG/ML 0.36 NG/ML Nasal Screen MRSA (PCR) NEGATIVE White Blood Count 8.6 TH/MM3 Red Blood Count 4.62 MIL/MM3 Hemoglobin 11.4 GM/DL Hematocrit 35.0 % Mean Corpuscular Volume 75.8 FL Mean Corpuscular Hemoglobin 24.7 PG Mean Corpuscular Hemoglobin 32.6 % Concent Red Cell Distribution Width 16.0 % Platelet Count 189 TH/MM3 Mean Platelet Volume 9.2 FL Neutrophils (%) (Auto) 78.1 % Lymphocytes (%) (Auto) 9.1 % Monocytes (%) (Auto) 12.2 % Eosinophils (%) (Auto) 0.3 % Basophils (%) (Auto) 0.3 % Neutrophils # (Auto) 6.7 TH/MM3 Lymphocytes # (Auto) 0.8 TH/MM3 Monocytes # (Auto) 1.0 TH/MM3 Eosinophils # (Auto) 0.0 TH/MM3 Basophils # (Auto) 0.0 TH/MM3 CBC Comment AUTO DIFF Differential Comment AUTO DIFF CONFIRMED Ovalocytes 1+ Sodium Level 139 MEQ/L Potassium Level 3.6 MEQ/L Chloride Level 109 MEQ/L Carbon Dioxide Level 19.2 MEQ/L Anion Gap 11 MEQ/L Blood Urea Nitrogen 10 MG/DL Creatinine 0.84 MG/DL Estimat Glomerular Filtration 67 ML/MIN Rate Random Glucose 199 MG/DL Calcium Level 8.4 MG/DL Phosphorus Level 2.1 MG/DL Magnesium Level 1.9 MG/DL Total Bilirubin 5.6 MG/DL Aspartate Amino Transf 226 U/L (AST/SGOT) Alanine Aminotransferase 218 U/L (ALT/SGPT) Alkaline Phosphatase 459 U/L Total Protein 6.0 GM/DL Albumin 3.0 GM/DL Date/Time Procedure Status Source Growth 05/20/16 18:55 Aerobic Blood Culture Received Blood Peripheral Pending 05/20/16 18:55 Anaerobic Blood Culture Received Blood Peripheral Pending Physical Examination HEENT: Normocephalic; atraumatic; + jaundice. Throat is clear. NECK: Neck is supple, no JVD, no lymphadenopathy. CHEST: CTA CARDIAC: RRR ABDOMEN: Soft, nondistended, mild diffuse tenderness; no hepatosplenomegaly; bowel sounds are present in all four quadrants. EXTREMITIES: No clubbing, cyanosis, or edema. SKIN: Normal; no rash; no jaundice. FLUID POWER MECHANIC: No focal deficits; alert and oriented times three. (Rosmery Monten[place]) Assessment and Plan Plan ASSESSMENT: - Abdominal pain, nausea, vomiting with elevated LFTs and imaging consistent with choledocholithiasis. CT scan abdomen and pelvis with IV contrast (05/20/16) revealed the kidneys and ureters are unremarkable in appearance with no renal calculi, mass, or hydronephrosis, evidence of mild central intrahepatic biliary ductal dilatation and dilation of the common bile duct with no definite filling defect or mass identified, small hiatal hernia, cholelithiasis again noted with no gallbladder wall thickening or inflammatory change. MRCP without contrast (05/20/16) revealed dilation of the common bile duct and central intrahepatic biliary system with multiple filling defects in the distal common bile duct most consistent with gallstones, cholelithiasis. LFTs total bilirubin 6.5, AST 377, ALT 315 , alkaline phosphatase 571. Afebrile with normal WBC this am. D/W patient and daughter (by phone) findings, recommendations for ERCP with possible sphincterotomy, possible tent placement- procedure, risk (including increased risk of bleeding given the fact that shes been on Brilinta, and risk of pancreatitis from the dye), benefit. Both the patient and the daughter verbalized understanding and are agreeable. - Elevated LFTs, most likely secondary to choledocholithiasis. Will need ERCP. Rpt. labs today. - Cholelithiasis, choledocholithiasis. ERCP today. - CAD with hx of stent placement on Brilinta. Last had yesterday am, maybe the day prior per patient. - Elevated Troponin, mild. Per CCM - CHANELLE, hyponatremia. Mild. - Diabetes, hypertension, hyperlipidemia, anxiety/depression per primary PLAN: - Plan for ERCP with possible sphincterotomy, possible stent placement - Obtain consents - NPO except medications - IVF - PPI - Zosyn - LFT this am - CBC, CMP in am - Supportive care - Further recommendations to follow based on results of above - Pt seen and examined by Dr. Arboleda and myself and this note is written on his behalf (Rosmery Montenegro) Physician Comments Patient seen and examined Agree with above Continue with current supportive care Monitor labs ERCP today (Abhijit Arboleda MD) Rosmery Montenegro May 21, 2016 09:23 Abhijit Arboleda MD May 21, 2016 16:42
[2016-05-21 09:45] LABS: INDIRECT BILIRUBIN 1.2 MG/DL (0.0-0.8); TOTAL BILIRUBIN ADULT 5.6 MG/DL (0.2-1.0)
--- NOTE | 2016-05-21 14:08 | EKG ---
Date Performed: 05/20/2016 Time Performed: 17:59:42 PTAGE: 71 years EKG: SINUS TACHYCARDIA INFERIOR MYOCARDIAL INFARCTION ABNORMAL ECG INTERPRETATION BASED ON A DEF AMENA AGE OF 40 YEARS PREVIOUS TRACING : 05/20/2016 17.58 Since previous tracing, no significant change noted DOCTOR: Shaw Pandya Interpretating Date/Time 05/21/2016 14:00:41
[2016-05-21] MEDS ORDERED: IOHEXOL 350 MG/ML 100 ML BTL (for Cath Lab) OTHER ONE (15:00)
[2016-05-21] MEDS ORDERED: PROPOFOL 200 MG/20 ML AMP IV ONE (15:06)
[2016-05-21] MEDS ORDERED: GLUCAGON 1 MG/ML VIAL IV ONE (15:15)
[2016-05-21] MEDS ORDERED: DO NOT ADM ANY ANTICOAGULANT DRUGS XX PRN (15:45)
--- NOTE | 2016-05-21 16:44 | PD.PROCEDR ---
GI Procedure REFERRING PHYSICIAN Dr. Alexander PROCEDURE PERFORMED ERCP with sphincterotomy and balloon extraction INDICATION FOR PROCEDURE Choledocholithiasis PROCEDURE: The procedure, risks and benefits were discussed with Ms. Davsi and informed consent was obtained. Anesthesia sedated her with Diprivan. She was placed in the left lateral decubitus position. ERCP: Patient was placed in a prone position. The Pentax videoscope was introduced through the oropharynx and advanced to the second portion of the duodenum where the ampula was identified. FINDINGS: The ampulla was identified this appeared to be unremarkable and within normal limits we obtained initial cannulation of the pancreatic duct which appeared to be normal in its head and body portions then we were able to obtain cannulation of the common bile duct that had filling defects and was dilated a generous sphincterotomy was performed and using 15 mm balloon we were able to extract 3 stones 1 was big 2 were small to medium in size there were no further filling defects noted in the common bile duct and as such the procedure was terminated the gallbladder was not visualized and the intrahepatics were unremarkable ESTIMATED BLOOD LOSS: None SPECIMENS REMOVED: None COMPLICATIONS: None IMPRESSION: Choledocholithiasis PLAN: Supportive care Laparoscopic cholecystectomy Abhijit Arboleda MD May 21, 2016 16:44
--- NOTE | 2016-05-21 17:11 | RADRPT ---
EXAM DATE/TIME: 05/21/2016 15:16 [facility] COMPARISON: MRCP W/O CONTRAST, May 20, 2016, 21:23. INDICATIONS : Stone removal FLUORO TIME: 2.25 minutes IMAGE COUNT: 5 CONTRAST: Instilled by Ordering Physician MEDICAL HISTORY : Carcinoma, breast. SURGICAL HISTORY : Mastectomy, bilateral. ENCOUNTER: Initial ACUITY: 2 days PAIN SCORE: Non-responsive. LOCATION: Right upper quadrant FINDINGS: An ERCP was performed by the ordering physician. The images demonstrate multiple filling defects within the common bile duct. CONCLUSION: Multiple filling defects identified within the common bile duct at the site of prior stones. Naila Stauffer MD on May 21, 2016 at 16:48 Board Certified Radiologist. This report was verified electronically.
--- NOTE | 2016-05-21 17:25 | HHI.CCPN ---
Subjective Remarks/Hospital Course 05/20: 71 y/o woman with multiple medical problems including DM, HTN, CAD presents with several day history of vomiting and abdominal discomfort/ fullness. No substernl cheat pressure or pain (which she gets with angina). LFTs all elevated and consistent with biliary obstruction. CT abdomen with dilated bile ducts, no obvious obstruction. Going now for MRCP. 05/21: Return after ERCP and sphincterotomy with extraction of the CBD stones. She is on room air currently. Denies any chest pain shortness of breath. Her abdominal pain is much improved compared to yesterday and she rates it out of 10 in intensity currently. She is inquiring when she can eat. Not in any acute distress Objective Vital Signs Date Time Temp Pulse Resp B/P Pulse Ox O2 Delivery O2 Flow Rate FiO2 05/21/16 16:30 78 16 127/66 97 Room Air 05/21/16 15:45 2 05/21/16 15:40 98.5 05/21/16 10:25 21 Result Diagram: 05/21/16 0305 05/21/16 0305 Objective Remarks Gen: elderly woman laying in bed in no acute distress Head: Atraumatic, mucus membranes dry. Neck: Supple, airway widely patent. Lungs: Clear, no wheezes or crackles. Heart: RRR, no m,r. Neck veins flat. Abdomen: Soft, large. No peritoneal irritation. BS active. Minimal tenderness right upper quadrant Extremities: Warm, well perfused. No edema. Skin: Poor turgor. Neuro: O X 3, cooperative. Moves 4 limbs to command. Speech clear. A/P Problem List: (1) Transaminitis ICD Code: R74.0 Status: Acute (2) Elevated troponin ICD Code: R79.89 Status: Acute (3) Dilated bile duct ICD Code: K83.8 Status: Acute (4) Severe sepsis ICD Code: A41.9 Status: Acute (5) Hyperglycemia ICD Code: R73.9 Status: Acute (6) Nausea & vomiting ICD Code: R11.2 Status: Acute (7) Hypertension ICD Code: I10 Status: Acute (8) NSTEMI (non-ST elevation myocardial infarction) ICD Code: I21.4 Status: Acute (9) Diabetes mellitus ICD Code: E11.9 Status: Acute Assessment and Plan Plan: CV: Off nicardipine drip. Aggressive hydration. Follow cardiac markers, resume by mouth antihypertensives when cleared by GI. Labetalol when necessary for systolic blood pressure greater than 160 RESP: Suppl O2 to keep sats > 91% NEURO: Pain medications as needed RENAL: Hydration with isotonic solution. ENDO: Levemir and q6h coverage. Hold oral agents. GI: NPO except meds with sips. : Niño for hourly output. HEME: Serial wbc. ID: Cultures. Broad abx coverage for biliary infection. Check urine. PX: Pepcid, heparin TID. Overall impression: sepsis and biliary obstruction secondary to CBD stones status post enterotomy and CBD stone extraction. Diabetes out of control, elevated lactic acid. Patient will be transferred out of ICU in a.m. Transfer to hospitalist service for further medical management. She will eventually need cholecystectomy. GI following. Critical care will be signing off in a.m.. Problem Qualifiers (1) Nausea & vomiting: Qualified Code: R11.2 - Non-intractable vomiting with nausea, unspecified vomiting type Ilia Ruiz MD May 21, 2016 17:25
[2016-05-21] MEDS ORDERED: MAGNESIUM SULFATE INJ 4 GM in SODIUM CHLORIDE 0.9% INJ 92 ML IV PRN (17:30)
[2016-05-21] MEDS ORDERED: POTASSIUM PHOSPHATE MONOBASIC 500 MG TAB PO PRN (17:30)
[2016-05-21] MEDS ORDERED: POTASSIUM PHOSPHATE MONOBASIC 500 MG TAB PO/TUBE PRN (17:30)
[2016-05-21] MEDS ORDERED: POTASSIUM PHOSPHATE INJ 30 MMOL in SODIUM CHLOR 0.9% 250 ML INJ 250 ML IV PRN (17:30)
[2016-05-21] MEDS ORDERED: MAGNESIUM SULFATE INJ 2 GM in SODIUM CHLORIDE 0.9% INJ 96 ML IV PRN (17:30)
[2016-05-21] MEDS ORDERED: POTASSIUM CL 40 MEQ/30 ML LIQ UDC PO/TUBE PRN ×2 (17:30)
[2016-05-21] MEDS ORDERED: SODIUM PHOSPHATE INJ 30 MMOL in SODIUM CHLOR 0.9% 250 ML INJ 240 ML IV PRN (17:30)
[2016-05-21] MEDS ORDERED: POTASSIUM CHLOR 20 MEQ PREMIX 100 ML IV PRN ×2 (17:30)
[2016-05-21] MEDS ORDERED: MAGNESIUM OXIDE 400 MG TAB PO PRN (17:30)
[2016-05-21] MEDS ORDERED: POTASSIUM CHLOR 40 MEQ PREMIX 100 ML IV PRN ×2 (17:30)
[2016-05-21] MEDS: MORPHINE SULFATE 4 MG/ML INJ IV PUSH PRN (21:10)
[2016-05-21] MEDS ORDERED: LABETALOL HCL 100 MG/20 ML VIAL IV PUSH PRN (23:30)
[2016-05-22] VITALS (9 sets, daily range): BP systolic 123–172; BP diastolic 57–83; PULSE 73–103; RESP 18–20; TEMP 97.3–98.2; O2SAT 93–97
[2016-05-22] MEDS: PIPERACIL-TAZO 3.375 GM PREMIX 50 ML IV SCH ×3 (03:45→23:06)
[2016-05-22] MEDS: SODIUM CHLOR 0.9% 1000 ML INJ 1,000 ML IV SCH ×4 (03:46→23:06)
[2016-05-22] MEDS: metroNIDAZOLE 500 MG INJ 100 ML IV SCH ×4 (03:46→21:30)
[2016-05-22] MEDS: CHLORHEXIDINE GLUCONATE 2 % 1 PACK (2 CLOTHS) TOP SCH (04:00)
[2016-05-22] MEDS: INSULIN ASPART SUPPLEMENTAL SCALE SQ SCH ×4 (04:00→21:31)
[2016-05-22] MEDS: HEPARIN SODIUM - SQ 10,000 UNITS/ML VIAL SQ SCH ×3 (04:51→21:25)
[2016-05-22] MEDS: SODIUM CHLORIDE 0.9% FLUSH 5 ML FLUSH IV FLUSH SCH ×2 (08:49→21:00)
[2016-05-22] MEDS: ASPIRIN 81 MG CHEW TAB PO SCH (08:49)
[2016-05-22] MEDS: DOCUSATE SODIUM 100 MG CAP PO SCH ×2 (08:49→21:24)
[2016-05-22] MEDS: amLODIPine BESYLATE 5 MG TAB PO SCH (08:49)
[2016-05-22] MEDS: PANTOPRAZOLE SODIUM 40 MG VIAL IV SCH (08:49)
[2016-05-22] MEDS: METOPROLOL SUCCINATE 50 MG EXTENDED RELEASE TAB PO SCH (08:49)
[2016-05-22] MEDS: buPROPion HCL 75 MG TAB PO SCH (08:53)
[2016-05-22] MEDS: ANASTROZOLE 1 MG TAB PO SCH (08:53)
[2016-05-22] MEDS: TICAGRELOR 90 MG TAB PO SCH ×2 (08:53→21:25)
[2016-05-22] MEDS: INSULIN DETEMIR 100 UNITS/ML VIAL SQ SCH ×2 (08:54→21:30)
[2016-05-22 08:56] LABS: AUTOMATED NEUTROPHIL # 5.2 TH/MM3 (1.8-7.7); BASOPHIL % 0.5 % (0.0-2.0); EOSINOPHIL % 0.7 % (0.0-4.0); LYMPH % 11.5 % (9.0-44.0); LYMPHOCYTE # 0.8 TH/MM3 (1.0-4.8); MEAN CELL VOLUME 75.3 FL (80.0-100.0); MEAN CORPUSCULAR HEMOGLOBIN 24.7 PG (27.0-34.0); MEAN CORPUSCULAR HGB CONC 32.8 % (32.0-36.0); MONO % 13.7 % (0.0-8.0); NEUT % 73.6 % (16.0-70.0); PLATELET COUNT 187 TH/MM3 (150-450); RED BLOOD COUNT 4.65 MIL/MM3 (4.00-5.30); RED CELL DISTRIBUTION WIDTH 15.8 % (11.6-17.2)
[2016-05-22 08:58] LABS: HEMO FLAGS AUTO DIFF
[2016-05-22 09:22] LABS: ALKALINE PHOSPHATASE 635 U/L (45-117); ALT (GPT) 180 U/L (10-53); ANION GAP 13 MEQ/L (5-15); AST (GOT) 241 U/L (15-37); BICARBONATE 16.6 MEQ/L (21.0-32.0); BLOOD UREA NITROGEN 9 MG/DL (7-18); CHLORIDE 110 MEQ/L (98-107); GLOMERULAR FILTRATION RATE 76 ML/MIN (>89); POTASSIUM 3.1 MEQ/L (3.5-5.1); SODIUM (NA) 140 MEQ/L (136-145); TOTAL BILIRUBIN ADULT 6.2 MG/DL (0.2-1.0)
[2016-05-22] MEDS: DULoxetine HCl DR 60 MG CAP PO SCH (09:34)
[2016-05-22 10:29] LABS: BURR CELLS 1+ (NORMAL); OVALOCYTES 1+ (NORMAL); SCAN/DIFF AUTO DIFF CONFIRMED
[2016-05-22] MEDS: MORPHINE SULFATE 4 MG/ML INJ IV PUSH PRN ×2 (13:21→21:27)
--- NOTE | 2016-05-22 17:44 | HHI.GIFU ---
Subjective Remarks Resting in bed. No n/v, abdominal pain. Tolerating clears. (Rosmery Montenegro) Objective Vitals I&O Vital Signs Date Time Temp Pulse Resp B/P Pulse Ox O2 Delivery O2 Flow Rate FiO2 05/22/16 12:00 97.9 78 20 127/83 94 05/22/16 11:03 96 21 05/22/16 08:00 97.5 86 20 172/77 96 05/22/16 04:00 97.3 97 20 149/68 93 05/22/16 00:20 98.2 103 18 148/65 97 05/21/16 22:00 81 05/21/16 20:00 91 05/21/16 20:00 98.3 73 20 191/82 95 05/21/16 18:00 78 I/O 05/21/16 05/21/16 05/21/16 05/22/16 05/22/16 05/22/16 07:00 15:00 23:00 07:00 15:00 23:00 Intake Total 2763 ml 855 ml 909 ml 998 ml Output Total 1350 ml 1000 ml 675 ml 650 ml Balance 1413 ml -145 ml 234 ml 348 ml Intake Oral 120 ml 240 ml 240 ml IV Total 2763 ml 735 ml 669 ml 758 ml Output Urine Total 1350 ml 1000 ml 675 ml 650 ml # Bowel Movements 0 0 0 0 Laboratory Laboratory Tests Test 05/22/16 08:46 White Blood Count 7.0 Red Blood Count 4.65 Hemoglobin 11.5 Hematocrit 35.0 Mean Corpuscular Volume 75.3 Mean Corpuscular Hemoglobin 24.7 Mean Corpuscular Hemoglobin 32.8 Concent Red Cell Distribution Width 15.8 Platelet Count 187 Mean Platelet Volume 8.8 Neutrophils (%) (Auto) 73.6 Lymphocytes (%) (Auto) 11.5 Monocytes (%) (Auto) 13.7 Eosinophils (%) (Auto) 0.7 Basophils (%) (Auto) 0.5 Neutrophils # (Auto) 5.2 Lymphocytes # (Auto) 0.8 Monocytes # (Auto) 1.0 Eosinophils # (Auto) 0.0 Basophils # (Auto) 0.0 CBC Comment AUTO DIFF Differential Comment AUTO DIFF CONFIRMED Ovalocytes 1+ Vanessa Cells 1+ Sodium Level 140 Potassium Level 3.1 Chloride Level 110 Carbon Dioxide Level 16.6 Anion Gap 13 Blood Urea Nitrogen 9 Creatinine 0.75 Estimat Glomerular Filtration 76 Rate Random Glucose 149 Calcium Level 8.1 Total Bilirubin 6.2 Aspartate Amino Transf 241 (AST/SGOT) Alanine Aminotransferase 180 (ALT/SGPT) Alkaline Phosphatase 635 Total Protein 5.9 Albumin 2.6 Date/Time Procedure Status Source Growth 05/22/16 08:46 Aerobic Blood Culture Received Blood Peripheral Pending 05/22/16 08:46 Anaerobic Blood Culture Received Blood Peripheral Pending 05/20/16 18:55 Aerobic Blood Culture - Preliminary Resulted Blood Peripheral NO GROWTH IN 2 DAYS 05/20/16 18:55 Anaerobic Blood Culture - Preliminary Resulted Blood Peripheral NO GROWTH IN 2 DAYS Imaging Last Impressions GI Procedure 05/21/16 0000 Signed Impressions: Service Date/Time: Saturday, May 21, 2016 15:16 - CONCLUSION: Multiple filling defects identified within the common bile duct at the site of prior stones. Naila Stauffer MD Chest X-Ray 05/20/16 1827 Signed Impressions: Service Date/Time: Friday, May 20, 2016 18:48 - CONCLUSION: No acute disease. Catracho Haas MD Cholangiopancreatography MRI 05/20/16 0000 Signed Impressions: Service Date/Time: Friday, May 20, 2016 21:23 - CONCLUSION: 1. Dilatation of the common bile duct and central intrahepatic biliary system with multiple filling defects in the distal common bile duct most consistent with gallstones. 2. Cholelithiasis. Catracho Haas MD Abdomen/Pelvis CT 05/20/16 0000 Signed Impressions: Service Date/Time: Friday, May 20, 2016 19:41 - CONCLUSION: 1. The kidneys and ureters are unremarkable in appearance with no renal calculi, mass or hydronephrosis. 2. Evidence of mild central intrahepatic biliary ductal dilatation and dilatation of the common bile duct with no definite filling defect or mass identified.. 3. Small hiatal hernia. 4. Cholelithiasis again noted with no gallbladder wall thickening or inflammatory change. Catracho Haas MD Physical Exam HEENT: Normocephalic; atraumatic; no jaundice. CHEST: CTA CARDIAC: RRR ABDOMEN: Soft, nondistended, nontender; no hepatosplenomegaly; bowel sounds are present in all four quadrants. EXTREMITIES: No clubbing, cyanosis, or edema. SKIN: Normal; no rash; no jaundice. FLOOR SWEEPER: No focal deficits; alert and oriented times three. (Rosmery Monten[place]) Assessment and Plan Plan ASSESSMENT: - Abdominal pain, nausea, vomiting with elevated LFTs and choledocholithiasis. CT scan abdomen and pelvis with IV contrast (05/20/16) revealed the kidneys and ureters are unremarkable in appearance with no renal calculi, mass, or hydronephrosis, evidence of mild central intrahepatic biliary ductal dilatation and dilation of the common bile duct with no definite filling defect or mass identified, small hiatal hernia, cholelithiasis again noted with no gallbladder wall thickening or inflammatory change. MRCP without contrast (05/20/16) revealed dilation of the common bile duct and central intrahepatic biliary system with multiple filling defects in the distal common bile duct most consistent with gallstones, cholelithiasis. S/P ERCP with sphincterotomy and balloon extraction (05/21/16)----> choledocholithiasis. LFTs total bilirubin 6.2, AST 241, ALT 180, alkaline phosphatase 635. Clinically improved, tolerating clears. GS evaluation for lap. pacheco. - Elevated LFTs secondary to choledocholithiasis. S/p ERCP as above. - Cholelithiasis, choledocholithiasis. S/P ERCP. Will get GS evaluation for lap. pacheco. - CAD with hx of stent placement on Brilinta. Last had yesterday am, maybe the day prior per patient. - Elevated Troponin, mild. Per CCM - CHANELLE, hyponatremia. Mild. - Diabetes, hypertension, hyperlipidemia, anxiety/depression per primary PLAN: - Full liquids - PPI - Zosyn - LFT in am - GS evaluation for lap. pacheco. - Supportive care - Further recommendations to follow based on results of above - Pt seen and examined by Dr. Arboleda and myself and this note is written on his behalf (Rosmery Montenegro) Physician Comments Patient seen and examined Agree with above Continue with current supportive care Monitor labs Await surgical evaluation and repeat labs in a.m. (Abhijit Arboleda MD) Rosmery Montenegro May 22, 2016 17:44 Abhijit Arboleda MD May 22, 2016 20:15
--- NOTE | 2016-05-22 18:05 | HHI.PR ---
Subjective Remarks tolerating clears no complains of nausea or abdominal pain Objective Vitals Vital Signs Date Time Temp Pulse Resp B/P Pulse Ox O2 Delivery O2 Flow Rate FiO2 05/22/16 12:00 97.9 78 20 127/83 94 05/22/16 11:03 96 21 05/22/16 08:00 97.5 86 20 172/77 96 05/22/16 04:00 97.3 97 20 149/68 93 05/22/16 00:20 98.2 103 18 148/65 97 05/21/16 22:00 81 05/21/16 20:00 91 05/21/16 20:00 98.3 73 20 191/82 95 I/O 05/21/16 05/21/16 05/21/16 05/22/16 05/22/16 05/22/16 07:00 15:00 23:00 07:00 15:00 23:00 Intake Total 2763 ml 855 ml 909 ml 998 ml Output Total 1350 ml 1000 ml 675 ml 650 ml Balance 1413 ml -145 ml 234 ml 348 ml Intake Oral 120 ml 240 ml 240 ml IV Total 2763 ml 735 ml 669 ml 758 ml Output Urine Total 1350 ml 1000 ml 675 ml 650 ml # Bowel Movements 0 0 0 0 Result Diagram: 05/22/1646 05/22/1646 Imaging Last Impressions GI Procedure 05/21/16 0000 Signed Impressions: Service Date/Time: Saturday, May 21, 2016 15:16 - CONCLUSION: Multiple filling defects identified within the common bile duct at the site of prior stones. Naila Stauffer MD Chest X-Ray 05/20/16 1827 Signed Impressions: Service Date/Time: Friday, May 20, 2016 18:48 - CONCLUSION: No acute disease. Catracho Haas MD Cholangiopancreatography MRI 05/20/16 0000 Signed Impressions: Service Date/Time: Friday, May 20, 2016 21:23 - CONCLUSION: 1. Dilatation of the common bile duct and central intrahepatic biliary system with multiple filling defects in the distal common bile duct most consistent with gallstones. 2. Cholelithiasis. Catracho Haas MD Abdomen/Pelvis CT 05/20/16 0000 Signed Impressions: Service Date/Time: Friday, May 20, 2016 19:41 - CONCLUSION: 1. The kidneys and ureters are unremarkable in appearance with no renal calculi, mass or hydronephrosis. 2. Evidence of mild central intrahepatic biliary ductal dilatation and dilatation of the common bile duct with no definite filling defect or mass identified.. 3. Small hiatal hernia. 4. Cholelithiasis again noted with no gallbladder wall thickening or inflammatory change. Catracho Haas MD Objective Remarks GENERAL: no distress SKIN: Warm and dry. HEAD: Normocephalic. EYES: No scleral icterus. No injection or drainage. NECK: Supple, trachea midline. No JVD or lymphadenopathy. CARDIOVASCULAR: Regular rate and rhythm without murmurs, gallops, or rubs. RESPIRATORY: Breath sounds equal bilaterally. No accessory muscle use. GASTROINTESTINAL: Abdomen soft, non-tender, nondistended. good bowel sounds MUSCULOSKELETAL: No cyanosis, or edema. BACK: Nontender without obvious deformity. No CVA tenderness. A/P Assessment and Plan Assessment and Plan choledocholithiasis S/P ERCP with sphincterotomy and balloon extraction Transaminitis GI ff. Ff LFTS GS consulted for lap cholecystectomy On Zosyn history of HTN, CAD continue on Brilinta, BB, CCB CHANELLE- improved continue fluids Hypokalemia- replace with IC KCL x 3 recheck in am DM type 2 insulin requiring continue Levemer -uop to 12 units bid and sliding scale PX: Pepcid, heparin TID. Donna Ervin MD May 22, 2016 18:05
[2016-05-22] MEDS: POTASSIUM CHLOR 10 MEQ PREMIX 100 ML IV SCH ×2 (18:19→21:29)
[2016-05-23] VITALS (7 sets, daily range): BP systolic 132–153; BP diastolic 65–92; PULSE 73–84; RESP 18–20; TEMP 97.5–98.1; O2SAT 93–96
[2016-05-23] MEDS: PIPERACIL-TAZO 3.375 GM PREMIX 50 ML IV SCH ×3 (03:19→20:21)
[2016-05-23] MEDS: metroNIDAZOLE 500 MG INJ 100 ML IV SCH ×4 (03:20→21:27)
[2016-05-23] MEDS ORDERED: POTASSIUM CHLOR 20 MEQ PREMIX 100 ML IV ONE (03:45)
[2016-05-23] MEDS: INSULIN ASPART SUPPLEMENTAL SCALE SQ SCH ×4 (04:00→21:27)
[2016-05-23] MEDS: SODIUM CHLOR 0.9% 1000 ML INJ 1,000 ML IV SCH ×4 (04:48→21:28)
[2016-05-23] MEDS: CHLORHEXIDINE GLUCONATE 2 % 1 PACK (2 CLOTHS) TOP SCH (04:51)
[2016-05-23 06:25] LABS: BICARBONATE 17.4 MEQ/L (21.0-32.0); INDIRECT BILIRUBIN 1.5 MG/DL (0.0-0.8)
[2016-05-23 06:34] LABS: TOTAL BILIRUBIN ADULT 5.6 MG/DL (0.2-1.0)
[2016-05-23 06:42] LABS: POTASSIUM 2.6 MEQ/L (3.5-5.1)
[2016-05-23] MEDS: HEPARIN SODIUM - SQ 10,000 UNITS/ML VIAL SQ SCH (06:48)
[2016-05-23] MEDS ORDERED: POTASSIUM CHLORIDE 25 MEQ EFFERVESCENT TAB PO ONE (07:15)
[2016-05-23] MEDS: POTASSIUM CHLOR 20 MEQ PREMIX 100 ML IV SCH ×2 (07:51→09:10)
[2016-05-23] MEDS: ASPIRIN 81 MG CHEW TAB PO SCH (07:53)
[2016-05-23] MEDS: PANTOPRAZOLE SODIUM 40 MG VIAL IV SCH (07:53)
[2016-05-23] MEDS: buPROPion HCL 75 MG TAB PO SCH (07:54)
[2016-05-23] MEDS: ANASTROZOLE 1 MG TAB PO SCH (07:54)
[2016-05-23] MEDS: amLODIPine BESYLATE 5 MG TAB PO SCH (07:54)
[2016-05-23] MEDS: TICAGRELOR 90 MG TAB PO SCH ×2 (07:54→20:26)
[2016-05-23] MEDS: DULoxetine HCl DR 60 MG CAP PO SCH (07:54)
[2016-05-23] MEDS: DOCUSATE SODIUM 100 MG CAP PO SCH ×2 (07:55→20:25)
[2016-05-23] MEDS: METOPROLOL SUCCINATE 50 MG EXTENDED RELEASE TAB PO SCH (07:55)
[2016-05-23] MEDS: SODIUM CHLORIDE 0.9% FLUSH 5 ML FLUSH IV FLUSH SCH ×2 (07:55→20:26)
[2016-05-23 07:57] LABS: MAGNESIUM 1.8 MG/DL (1.5-2.5)
[2016-05-23] MEDS: INSULIN DETEMIR 100 UNITS/ML VIAL SQ SCH ×2 (08:02→20:26)
--- NOTE | 2016-05-23 16:04 | HHI.GIFU ---
Subjective Remarks Resting in bed. No n/v. No abdominal pain. Pt c/o vaginal bleeding x 4 weeks. She reports that this is a scant to small amount of dark red blood. She does not experience any of this with bowel movements. (Rosmery Montenegro) Objective Vitals I&O Vital Signs Date Time Temp Pulse Resp B/P Pulse Ox O2 Delivery O2 Flow Rate FiO2 05/23/16 12:00 98.1 74 20 152/67 93 05/23/16 08:00 98.0 77 20 137/92 95 05/23/16 07:49 76 05/23/16 04:00 97.5 84 18 153/70 93 05/23/16 00:00 97.7 82 18 149/87 94 05/22/16 21:45 21 05/22/16 20:30 79 05/22/16 20:00 97.8 83 18 163/73 94 05/22/16 16:00 97.4 73 20 123/57 95 I/O 05/22/16 05/22/16 05/22/16 05/23/16 05/23/16 05/23/16 07:00 15:00 23:00 07:00 15:00 23:00 Intake Total 998 ml 300 ml 240 ml 120 ml Output Total 650 ml 825 ml 550 ml 500 ml Balance 348 ml -525 ml -310 ml -380 ml Intake Oral 240 ml 300 ml 240 ml 120 ml IV Total 758 ml Output Urine Total 650 ml 825 ml 550 ml 500 ml # Bowel Movements 0 0 0 0 Laboratory Laboratory Tests Test 05/23/16 04:39 Sodium Level 141 Potassium Level 2.6 Chloride Level 111 Carbon Dioxide Level 17.4 Anion Gap 13 Blood Urea Nitrogen 7 Creatinine 0.59 Estimat Glomerular Filtration 100 Rate Random Glucose 97 Calcium Level 7.7 Magnesium Level 1.8 Total Bilirubin 5.6 Direct Bilirubin 4.1 Indirect Bilirubin 1.5 Aspartate Amino Transf 218 (AST/SGOT) Alanine Aminotransferase 173 (ALT/SGPT) Alkaline Phosphatase 738 Total Protein 5.5 Albumin 2.3 Date/Time Procedure Status Source Growth 05/22/16 08:46 Aerobic Blood Culture - Preliminary Resulted Blood Peripheral NO GROWTH IN 1 DAY 05/22/16 08:46 Anaerobic Blood Culture - Preliminary Resulted Blood Peripheral NO GROWTH IN 1 DAY Imaging Last Impressions GI Procedure 05/21/16 0000 Signed Impressions: Service Date/Time: Saturday, May 21, 2016 15:16 - CONCLUSION: Multiple filling defects identified within the common bile duct at the site of prior stones. Naila Stauffer MD Chest X-Ray 05/20/16 1827 Signed Impressions: Service Date/Time: Friday, May 20, 2016 18:48 - CONCLUSION: No acute disease. Catracho Haas MD Cholangiopancreatography MRI 05/20/16 0000 Signed Impressions: Service Date/Time: Friday, May 20, 2016 21:23 - CONCLUSION: 1. Dilatation of the common bile duct and central intrahepatic biliary system with multiple filling defects in the distal common bile duct most consistent with gallstones. 2. Cholelithiasis. Catracho Haas MD Abdomen/Pelvis CT 05/20/16 0000 Signed Impressions: Service Date/Time: Friday, May 20, 2016 19:41 - CONCLUSION: 1. The kidneys and ureters are unremarkable in appearance with no renal calculi, mass or hydronephrosis. 2. Evidence of mild central intrahepatic biliary ductal dilatation and dilatation of the common bile duct with no definite filling defect or mass identified.. 3. Small hiatal hernia. 4. Cholelithiasis again noted with no gallbladder wall thickening or inflammatory change. Catracho Haas MD Physical Exam HEENT: Normocephalic; atraumatic; no jaundice. CHEST: CTA CARDIAC: RRR ABDOMEN: Soft, nondistended, nontender; no hepatosplenomegaly; bowel sounds are present in all four quadrants. EXTREMITIES: No clubbing, cyanosis, or edema. SKIN: Normal; no rash; no jaundice. RESIDENTIAL LEASING AGENT: No focal deficits; alert and oriented times three. (Rosmery Montenegro [facility]) Assessment and Plan Plan ASSESSMENT: - Abdominal pain, nausea, vomiting with elevated LFTs and choledocholithiasis. CT scan abdomen and pelvis with IV contrast (05/20/16) revealed the kidneys and ureters are unremarkable in appearance with no renal calculi, mass, or hydronephrosis, evidence of mild central intrahepatic biliary ductal dilatation and dilation of the common bile duct with no definite filling defect or mass identified, small hiatal hernia, cholelithiasis again noted with no gallbladder wall thickening or inflammatory change. MRCP without contrast (05/20/16) revealed dilation of the common bile duct and central intrahepatic biliary system with multiple filling defects in the distal common bile duct most consistent with gallstones, cholelithiasis. S/P ERCP with sphincterotomy and balloon extraction (05/21/16)----> choledocholithiasis. Clinically improved, but still with persistent elevation of LFTs- T. Biil 5.6, AST 218, ALT 173, Alk Phosph 738. D/W Dr. Kilgore, possible repeat MRCP vs. intraoperative' cholangiogram. - Elevated LFTs secondary to choledocholithiasis. S/p ERCP as above. Pt with persistent elevation of LFTs as above. GS consulted. Possible repeat MRCP vs. IOC. - Cholelithiasis, choledocholithiasis. S/P ERCP. GS Consulted. - CAD with hx of stent placement on Brilinta. Last had yesterday am, maybe the day prior per patient. - Elevated Troponin, mild. Per CCM - CHANELLE, hyponatremia. Mild. - Vaginal bleeding x 4 weeks. Pt reports 4 week hx of scant to small mount of dark red vaginally bleeding. Denies any blood in stool and states she does not have this with bowel movements. Of note, she did tell another provider black stools. Hemoccult stools pending. However, she just had ERCP. WRAPPER CASHIER consulted - Diabetes, hypertension, hyperlipidemia, anxiety/depression per primary PLAN: - JONG - PPI - Hemoccult stools - CBC, LFT in am - GS evaluation for lap. pacheco. - Possible repeat MRCP vs. IOC with rpt ercp if needed - Supportive care - Further recommendations to follow based on results of above - Pt seen and examined by Dr. Arboleda and myself and this note is written on his behalf (Rosmery Monten[place]ro) Physician Comments Patient was seen and examined Agree with above Continue with current supportive care Monitor labs Varices don't show improvement by tomorrow then we will consider repeat imaging (Abhijit Arboleda MD) Rosmery [place]en[place]ro May 23, 2016 16:04 Abhijit Arboleda MD May 23, 2016 19:27
--- NOTE | 2016-05-23 16:07 | HHI.PR ---
Subjective Remarks Follow-up visit cholelithiasis, status post ERCP with sphincterotomy and balloon extraction, dark stool. Patient reports she has dark stool today. Described as soft but dark states she hadn't had this previously. She also reports an ongoing vaginal bleeding it has been from 1 now on and off she is noticed. Denies any abdominal cramping, nausea, vomiting, diarrhea. Reports weakness but not a lot of tiredness. Continue to be on IV Zosyn, and has been 3 times a day. Since it was reported by nurse earlier, heparin has been stopped for now. Denies pain or discomfort, denies chest pain, palpitations, dizziness, headaches. Objective Vitals Vital Signs Date Time Temp Pulse Resp B/P Pulse Ox O2 Delivery O2 Flow Rate FiO2 05/23/16 12:00 98.1 74 20 152/67 93 05/23/16 08:00 98.0 77 20 137/92 95 05/23/16 07:49 76 05/23/16 04:00 97.5 84 18 153/70 93 05/23/16 00:00 97.7 82 18 149/87 94 05/22/16 21:45 21 05/22/16 20:30 79 05/22/16 20:00 97.8 83 18 163/73 94 05/22/16 16:00 97.4 73 20 123/57 95 I/O 05/22/16 05/22/16 05/22/16 05/23/16 05/23/16 05/23/16 07:00 15:00 23:00 07:00 15:00 23:00 Intake Total 998 ml 300 ml 240 ml 120 ml Output Total 650 ml 825 ml 550 ml 500 ml Balance 348 ml -525 ml -310 ml -380 ml Intake Oral 240 ml 300 ml 240 ml 120 ml IV Total 758 ml Output Urine Total 650 ml 825 ml 550 ml 500 ml # Bowel Movements 0 0 0 0 Result Diagram: 05/22/16 0846 05/23/16 0439 Imaging Last Impressions GI Procedure 05/21/16 0000 Signed Impressions: Service Date/Time: Saturday, May 21, 2016 15:16 - CONCLUSION: Multiple filling defects identified within the common bile duct at the site of prior stones. Naila Stauffer MD Chest X-Ray 05/20/16 0217 Signed Impressions: Service Date/Time: Friday, May 20, 2016 18:48 - CONCLUSION: No acute disease. Catracho Haas MD Cholangiopancreatography MRI 05/20/16 0000 Signed Impressions: Service Date/Time: Friday, May 20, 2016 21:23 - CONCLUSION: 1. Dilatation of the common bile duct and central intrahepatic biliary system with multiple filling defects in the distal common bile duct most consistent with gallstones. 2. Cholelithiasis. Catracho Haas MD Abdomen/Pelvis CT 05/20/16 0000 Signed Impressions: Service Date/Time: Friday, May 20, 2016 19:41 - CONCLUSION: 1. The kidneys and ureters are unremarkable in appearance with no renal calculi, mass or hydronephrosis. 2. Evidence of mild central intrahepatic biliary ductal dilatation and dilatation of the common bile duct with no definite filling defect or mass identified.. 3. Small hiatal hernia. 4. Cholelithiasis again noted with no gallbladder wall thickening or inflammatory change. Catracho Haas MD Objective Remarks GENERAL: no distress SKIN: Warm and dry. HEAD: Normocephalic. EYES: No scleral icterus. No injection or drainage. NECK: Supple, trachea midline. No JVD or lymphadenopathy. CARDIOVASCULAR: Regular rate and rhythm without murmurs, gallops, or rubs. RESPIRATORY: Breath sounds equal bilaterally. No accessory muscle use. GASTROINTESTINAL: Abdomen soft, non-tender, nondistended. good bowel sounds MUSCULOSKELETAL: No cyanosis, or edema. BACK: Nontender without obvious deformity. No CVA tenderness. A/P Problem List: (1) Hypertension ICD Code: I10 Status: Acute (2) Diabetes mellitus ICD Code: E11.9 Status: Acute (3) Transaminitis ICD Code: R74.0 Status: Acute (4) Choledocholithiasis with acute cholecystitis ICD Code: K80.42 Status: Acute (5) Dilated bile duct ICD Code: K83.8 Status: Acute Assessment and Plan Patient is a 71-year-old female who came in with several day history of vomiting and abdominal discomfort/fullness. CT of the abdomen with dilated bile ducts, no obvious obstruction. Patient was status post ERCP and sphincterectomy with extraction of the CBD stones. -choledocholithiasis S/P ERCP with sphincterotomy and balloon extraction Transaminitis GI ff. Ff LFTS GS consulted for lap cholecystectomy. Awaiting for general surgery's recommendations. On Zosyn Dark stool - Hemoccult - DC heparin for now, SCDs for DVT prop - Check CBC Vaginal bleeding - has had it for about 1 month, since prior to hospital admission. 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 history of HTN, CAD continue on Brilinta, BB, CCB CHANELLE- improved continue fluids Hypokalemia- replace with IC KCL x 3 recheck in am DM type 2 insulin requiring continue Levemer -uop to 12 units bid and sliding scale GI Prop : Pepcid DVT Prop : SCD Written by Earnest Carreno, acting as scribe for Dr. Carney on 05/23/16 at 15:03. The documentation accurately reflects the work performed [id number] by me on at 15:03. Discharge Planning Not ready for discharge Earnest Joyner May 23, 2016 16:07 Lakisha Carney DO May 23, 2016 21:55
--- NOTE | 2016-05-23 17:28 | PD.CONS ---
HPI Service General Surgery Consult Requested By Rosmery LENTZ Reason for Consult Choledocholithiasis Primary Care Physician Beltran Syed MD History of Present Illness 71 yo F who presented to the hospital a few days ago with nausea, vomiting and abdominal pain. On evaluation she was found to have leukocytosis and elevated liver function tests. MRCP confirmed multiple filling defects in the common bile duct and she proceeded for ERCP on the undergoing sphincterotomy and balloon extraction of multiple stones. I'm consulted now to consider laparoscopic cholecystectomy. The patient is clinically significantly better and denies abdominal pain nausea or vomiting at this time. Her leukocytosis has resolved. She does have persistent elevation of liver function tests. The patient has a history of coronary artery disease status post cardiac stents and is on Brilinta. Her last dose was this morning. Abdominal surgeries include tubal ligation and 2 C-sections. She says she has felt congested in her chest since the ERCP. Review of Systems Constitutional: DENIES: Fever, Chills Eyes: DENIES: Eye inflammation, Eye pain Respiratory: DENIES: Shortness of breath Cardiovascular: DENIES: Palpitations, Syncope Gastrointestinal: DENIES: Abdominal pain, Nausea Integumentary: DENIES: Pruritus, Rash Neurologic: DENIES: Headache, Localized weakness Past Family Social History Past Medical History Hypertension Diabetes Coronary artery disease Neuropathy History of breast cancer 2 (status post bilateral partial mastectomy/ chemotherapy/radiation) Obstructive sleep apnea Hyperlipidemia Anxiety/depression Past Surgical History Partial mastectomy Tubal ligation 2 Cardiac stents Reported Medications Reported Meds & Active Scripts Active Nitrostat (Nitroglycerin) 0.4 Mg Sub 0.4 Mg SL DIRECTED PRN Brilinta 90 Mg Tab (Ticagrelor) 90 Mg Tab 90 Mg PO BID Novolin N (Insulin Isophane (Human)) 100 Units/Ml Inj 38 Units SQ DAILY 30 Days Reported Imodium A-D (Loperamide HCl) 2 Mg Tab 4 Mg PO ONCE PRN DO NOT EXCEED 8 CAPSULES/TABLETS 24 HOURS Novolin R (Insulin Human Regular) 100 Units/Ml Inj 17 Units SQ HS Bupropion Hcl (Bupropion HCl) 75 Mg Tab 75 Mg PO DAILY Atorvastatin 40 mg (Atorvastatin Calcium) 40 Mg Tab 40 Mg PO HS Tylenol (Acetaminophen) 325 Mg Tab 650 Mg PO Q4HR PRN Anastrozole 1 Mg Tab 1 Mg PO DAILY Colace (Docusate Sodium) 100 Mg Cap 100 Mg PO BID Cymbalta (Duloxetine HCl) 60 Mg Cap 60 Mg PO DAILY Glucophage (Metformin HCl) 1,000 Mg Tab 1,000 Mg PO BIDPC Norvasc (Amlodipine Besylate) 5 Mg Tab 5 Mg PO DAILY Aspirin 81 Mg Tab 81 Mg PO DAILY Amaryl (Glimepiride) 4 Mg Tab 4 Mg PO DAILYAC Toprol Xl (Metoprolol Succinate) 50 Mg Tabcr 50 Mg PO DAILY Allergies: Coded Allergies: No Known Allergies (Verified , 05/20/16) Active Ordered Medications Current Medications Medications (Trade) Dose Ordered Sig/Karyna Route Start Time Stop Time Status Last Admin (Norvasc) 5 mg DAILY PO 05/21/16 09:00 05/23/16 07:54 (Arimidex) 1 mg DAILY PO 05/21/16 09:00 05/23/16 07:54 (Aspirin Chew) 81 mg DAILY PO 05/21/16 09:00 05/23/16 07:53 (Wellbutrin) 75 mg DAILY PO 05/21/16 09:00 05/23/16 07:54 (Colace) 100 mg BID PO 05/21/16 09:00 05/23/16 07:55 (Cymbalta Dr) 60 mg DAILY PO 05/21/16 09:00 05/23/16 07:54 (Toprol Xl) 50 mg DAILY PO 05/21/16 09:00 05/23/16 07:55 Ticagrelor 90 mg 90 mg BID PO 05/21/16 09:00 05/23/16 07:54 (NS 1000 ml Inj) 1,000 ml @ 150 mls/hr Q6H40M IV 05/20/16 22:00 05/23/16 16:38 (NS Flush) 2 ml UNSCH PRN IV FLUSH 05/20/16 21:30 (NS Flush) 2 ml BID IV FLUSH 05/21/16 09:00 05/23/16 07:55 (Protonix Inj) 40 mg DAILY IV 05/21/16 09:00 05/23/16 07:53 (Zofran Inj) 4 mg Q6H PRN IV 05/20/16 22:00 05/23/16 08:14 Miscellaneous Information 1 Q361D XX 05/20/16 22:00 05/20/16 22:00 (Chlorhexidine 2% Cloth) 3 pack Taper DAILY@04 TOP 05/21/16 04:00 05/17/17 03:59 05/23/16 04:51 (Chlorhexidine 2% Cloth) 3 pack UNSCH PRN TOP 05/20/16 21:30 (D50w (Vial) Inj) 25 ml UNSCH PRN IV PUSH 05/20/16 21:30 (Glucagon Inj) 1 mg UNSCH PRN OTHER 05/20/16 21:30 Insulin Aspart 1 1 Q6H SQ 05/20/16 22:00 05/22/16 21:31 Piperacillin Sod/ Tazobactam Sod 50 ml @ 100 mls/hr Q8H IV 05/21/16 04:00 05/23/16 12:40 (Flagyl 500 Mg Inj) 100 ml @ 100 mls/hr Q6H IV 05/20/16 22:00 05/23/16 16:36 (Morphine Inj) 3 mg Q3H PRN IV PUSH 05/21/16 22:00 05/22/16 21:27 (Trandate Inj) 20 mg Q4H PRN IV PUSH 05/21/16 23:30 05/21/16 23:47 (Levemir Inj) 12 units Q12HR SQ 05/22/16 21:00 05/23/16 08:02 Family History Noncontributory Social History No tobacco or alcohol or drug use. She lives at half the time in [place]. Physical Exam Vital Signs Vital Signs Date Time Temp Pulse Resp B/P Pulse Ox O2 Delivery O2 Flow Rate FiO2 05/23/16 16:00 97.9 73 20 132/71 93 05/23/16 12:00 98.1 74 20 152/67 93 05/23/16 08:00 98.0 77 20 137/92 95 05/23/16 07:49 76 05/23/16 04:00 97.5 84 18 153/70 93 05/23/16 00:00 97.7 82 18 149/87 94 05/22/16 21:45 21 05/22/16 20:30 79 05/22/16 20:00 97.8 83 18 163/73 94 Physical Exam GENERAL: Awake and alert. No acute distress. Cooperative. Obese. HEAD: Normocephalic. Atraumatic. EYES: Pupils equal round and reactive to light bilaterally. No scleral icterus. ENT: Moist oral mucosa. CHEST: Nonlabored breathing. Mild rhonchi bilaterally. No wheezing. CARDIOVASCULAR: Regular rate and rhythm. ABDOMEN: Round. Nondistended. Nontender. EXTREMITIES: No cyanosis or edema. SKIN: Warm, dry, nonjaundiced. Laboratory Laboratory Tests Test 05/23/16 04:39 Sodium Level 141 Potassium Level 2.6 Chloride Level 111 Carbon Dioxide Level 17.4 Anion Gap 13 Blood Urea Nitrogen 7 Creatinine 0.59 Estimat Glomerular Filtration 100 Rate Random Glucose 97 Calcium Level 7.7 Magnesium Level 1.8 Total Bilirubin 5.6 Direct Bilirubin 4.1 Indirect Bilirubin 1.5 Aspartate Amino Transf 218 (AST/SGOT) Alanine Aminotransferase 173 (ALT/SGPT) Alkaline Phosphatase 738 Total Protein 5.5 Albumin 2.3 Date/Time Procedure Status Source Growth 05/22/16 08:46 Aerobic Blood Culture - Preliminary Resulted Blood Peripheral NO GROWTH IN 1 DAY 05/22/16 08:46 Anaerobic Blood Culture - Preliminary Resulted Blood Peripheral NO GROWTH IN 1 DAY Result Diagram: 05/22/16 0846 05/23/16 0439 Imaging Last Impressions GI Procedure 05/21/16 0000 Signed Impressions: Service Date/Time: Saturday, May 21, 2016 15:16 - CONCLUSION: Multiple filling defects identified within the common bile duct at the site of prior stones. Nalia Stauffer MD Chest X-Ray 05/20/16 1827 Signed Impressions: Service Date/Time: Friday, May 20, 2016 18:48 - CONCLUSION: No acute disease. Catracho Haas MD Cholangiopancreatography MRI 05/20/16 0000 Signed Impressions: Service Date/Time: Friday, May 20, 2016 21:23 - CONCLUSION: 1. Dilatation of the common bile duct and central intrahepatic biliary system with multiple filling defects in the distal common bile duct most consistent with gallstones. 2. Cholelithiasis. Catracho Haas MD Abdomen/Pelvis CT 05/20/16 0000 Signed Impressions: Service Date/Time: Friday, May 20, 2016 19:41 - CONCLUSION: 1. The kidneys and ureters are unremarkable in appearance with no renal calculi, mass or hydronephrosis. 2. Evidence of mild central intrahepatic biliary ductal dilatation and dilatation of the common bile duct with no definite filling defect or mass identified.. 3. Small hiatal hernia. 4. Cholelithiasis again noted with no gallbladder wall thickening or inflammatory change. Catracho Haas MD Assessment and Plan Assessment and Plan 71 yo F with multiple medical comorbidities with choledocholithiasis status post ERCP with sphincterotomy and stone extraction. She has persistently elevated liver function enzymes. The patient received Brilinta this morning. She has cardiac stents placed 1 year ago. I would like to ask cardiology for risk assessment. I will likely plan cholecystectomy in the next few days or as outpatient. She would need to be off Brilinta for about 5 days. We'll also follow-up a.m. labs. Alexander Kilgore MD May 23, 2016 17:28
[2016-05-24] VITALS (7 sets, daily range): BP systolic 125–156; BP diastolic 59–72; PULSE 70–82; RESP 20; TEMP 97.8–98.1; O2SAT 94–98
[2016-05-24] MEDS: CHLORHEXIDINE GLUCONATE 2 % 1 PACK (2 CLOTHS) TOP SCH (03:14)
[2016-05-24] MEDS: PIPERACIL-TAZO 3.375 GM PREMIX 50 ML IV SCH ×3 (03:15→21:27)
[2016-05-24] MEDS: INSULIN ASPART SUPPLEMENTAL SCALE SQ SCH ×4 (03:41→21:31)
[2016-05-24] MEDS: metroNIDAZOLE 500 MG INJ 100 ML IV SCH ×4 (03:42→21:32)
[2016-05-24 07:03] LABS: MEAN CELL VOLUME 74.7 FL (80.0-100.0); MEAN CORPUSCULAR HEMOGLOBIN 24.5 PG (27.0-34.0); MEAN CORPUSCULAR HGB CONC 32.7 % (32.0-36.0); PLATELET COUNT 217 TH/MM3 (150-450); RED BLOOD COUNT 4.41 MIL/MM3 (4.00-5.30); RED CELL DISTRIBUTION WIDTH 15.8 % (11.6-17.2); WHITE BLOOD COUNT 6.3 TH/MM3 (4.0-11.0)
[2016-05-24 07:07] LABS: ALKALINE PHOSPHATASE 662 U/L (45-117); ALT (GPT) 112 U/L (10-53); ANION GAP 10 MEQ/L (5-15); AST (GOT) 66 U/L (15-37); BLOOD UREA NITROGEN 7 MG/DL (7-18); CHLORIDE 113 MEQ/L (98-107); GLOMERULAR FILTRATION RATE 82 ML/MIN (>89); SODIUM (NA) 142 MEQ/L (136-145); TOTAL BILIRUBIN ADULT 2.3 MG/DL (0.2-1.0)
[2016-05-24 07:12] LABS: HEMO FLAGS AUTO DIFF
[2016-05-24 07:15] LABS: POTASSIUM 2.9 MEQ/L (3.5-5.1)
[2016-05-24] MEDS: METOPROLOL SUCCINATE 50 MG EXTENDED RELEASE TAB PO SCH (08:05)
[2016-05-24] MEDS: ASPIRIN 81 MG CHEW TAB PO SCH (08:05)
[2016-05-24] MEDS: DOCUSATE SODIUM 100 MG CAP PO SCH ×2 (08:05→21:00)
[2016-05-24] MEDS: amLODIPine BESYLATE 5 MG TAB PO SCH (08:05)
[2016-05-24] MEDS: PANTOPRAZOLE SODIUM 40 MG VIAL IV SCH (08:05)
[2016-05-24] MEDS: INSULIN DETEMIR 100 UNITS/ML VIAL SQ SCH ×2 (08:06→21:29)
[2016-05-24] MEDS: buPROPion HCL 75 MG TAB PO SCH (08:09)
[2016-05-24] MEDS ORDERED: POTASSIUM CHLORIDE 20 MEQ CONTROLLED RELEASE TAB PO ONE (08:15)
[2016-05-24] MEDS: POTASSIUM CHLOR 20 MEQ PREMIX 100 ML IV SCH ×2 (08:18→10:42)
[2016-05-24] MEDS: ANASTROZOLE 1 MG TAB PO SCH (08:26)
[2016-05-24] MEDS: DULoxetine HCl DR 60 MG CAP PO SCH (08:26)
[2016-05-24] MEDS: TICAGRELOR 90 MG TAB PO SCH (08:26)
[2016-05-24] MEDS: SODIUM CHLORIDE 0.9% FLUSH 5 ML FLUSH IV FLUSH SCH ×2 (08:27→21:27)
[2016-05-24] MEDS ORDERED: MAGNESIUM SULFATE 1 GM PREMIX 100 ML IV ONE (09:00)
--- NOTE | 2016-05-24 09:20 | PD.CONS ---
History of Present Illness Service GYNECOLOGY Consult Requested By Dr. Carney Reason for Consult Post-menopausal bleeding Primary Care Physician Beltran Syed MD Diagnoses: History of Present Illness 71 year old female, gynecology being consulted for post-menopausal bleeding. Vaginal bleeding began 3 weeks ago. It has been very light and intermittent. She has noticed some spotting. She wears depends for urinary incontinence, but reports little blood in her underwear. She notices the bleeding more when she scratches, and wonders if it is coming from the vulvar region. She notes the vulvar area is dry and itchy. She reached menopause at age 55. She had regular periods before then. She had one abnormal Pap smear in her 20's and required conization, with biopsy negative for malignancy. Since that time she has normal Pap smears. Last Pap smear was summer. She has not seen a hha in 8 years. She reports no discharge and no history of STD's. She has a history of breast cancer, in remission for 8 years. Her mother had breast cancer, but besides that, no family history of uterine or ovarian cancer. She reports no active bleeding currently. She is on baby aspirin, not on any other anticoagulants per her report. (Catracho Pierce MD R2) Review of Systems Constitutional: DENIES: Weight loss, Night Sweats Genitourinary: COMPLAINS OF: Abnormal vaginal bleeding, Urinary incontinence Integumentary: COMPLAINS OF: Pruritus, DENIES: Breast masses, Breast skin changes, Nipple discharge (Catracho Pierce MD R2) Past Family Social History Allergies: Coded Allergies: No Known Allergies (Verified , 05/20/16) Past Medical History , X2 Diabetes 2 HTN Coronary stents, on aspirin ERCP for gallstones Past Surgical History Left eye muscle resection Appendectomy X2 Reported Medications Reported Meds & Active Scripts Active Nitrostat (Nitroglycerin) 0.4 Mg Sub 0.4 Mg SL DIRECTED PRN Brilinta 90 Mg Tab (Ticagrelor) 90 Mg Tab 90 Mg PO BID Novolin N (Insulin Isophane (Human)) 100 Units/Ml Inj 38 Units SQ DAILY 30 Days Reported Imodium A-D (Loperamide HCl) 2 Mg Tab 4 Mg PO ONCE PRN DO NOT EXCEED 8 CAPSULES/TABLETS 24 HOURS Novolin R (Insulin Human Regular) 100 Units/Ml Inj 17 Units SQ HS Bupropion Hcl (Bupropion HCl) 75 Mg Tab 75 Mg PO DAILY Atorvastatin 40 mg (Atorvastatin Calcium) 40 Mg Tab 40 Mg PO HS Tylenol (Acetaminophen) 325 Mg Tab 650 Mg PO Q4HR PRN Anastrozole 1 Mg Tab 1 Mg PO DAILY Colace (Docusate Sodium) 100 Mg Cap 100 Mg PO BID Cymbalta (Duloxetine HCl) 60 Mg Cap 60 Mg PO DAILY Glucophage (Metformin HCl) 1,000 Mg Tab 1,000 Mg PO BIDPC Norvasc (Amlodipine Besylate) 5 Mg Tab 5 Mg PO DAILY Aspirin 81 Mg Tab 81 Mg PO DAILY Amaryl (Glimepiride) 4 Mg Tab 4 Mg PO DAILYAC Toprol Xl (Metoprolol Succinate) 50 Mg Tabcr 50 Mg PO DAILY Active Ordered Medications Inpatient Medications Acetaminophen (Tylenol) 650 mg Q6H PRN PO PAIN 1-10 AND/OR FEVER >101F Last administered on 05/21/16 09:05; Start 05/20/16 at 22:00; Stop 05/21/16 at 20:46 ; Status DC Acetaminophen 650 mg 650 mg ONCE ONCE PO Last administered on 05/20/16 19:11; Start 05/20/16 at 19:00; Stop 05/20/16 at 19:01; Status DC Albuterol/ Ipratropium (Duoneb Neb) 1 ampule Q4HR NEB PRN INH WHEEZING; Start 05/20/16 at 22:00 Amlodipine Besylate (Norvasc) 5 mg DAILY PO Last administered on 05/24/16 08: 05; Start 05/21/16 at 09:00 Anastrozole (Arimidex) 1 mg DAILY PO Last administered on 05/24/16 08:26; Start 05/21/16 at 09:00 Aspirin (Aspirin Chew) 81 mg DAILY PO Last administered on 05/24/16 08:05; Start 05/21/16 at 09:00 Bupropion HCl (Wellbutrin) 75 mg DAILY PO Last administered on 05/24/16 08:09 ; Start 05/21/16 at 09:00 Chlorhexidine Gluconate (Chlorhexidine 2% Cloth) 3 pack UNSCH PRN TOP HYGIENIC CARE; Start 05/20/16 at 21:30 Dextrose (D50w (Vial) Inj) 25 ml UNSCH PRN IV PUSH HYPOGLYCEMIA-SEE COMMENTS; Start 05/20/16 at 21:30 Docusate Sodium (Colace) 100 mg BID PO Last administered on 05/24/16 08:05; Start 05/21/16 at 09:00 Duloxetine HCl (Cymbalta Dr) 60 mg DAILY PO Last administered on 05/24/16 08: 26; Start 05/21/16 at 09:00 Glucagon (Glucagon Inj) 1 mg UNSCH PRN OTHER HYPOGLYCEMIA-SEE COMMENTS; Start 05/20/16 at 21:30 Heparin Sodium (Porcine) (Heparin Inj) 5,000 units Q8H SQ Last administered on 05/23/16 06:48; Start 05/20/16 at 22:00; Stop 05/23/16 at 14:32; Status DC Insulin Aspart 1 1 Q6H SQ Last administered on 05/23/16 21:27; Start 05/20/16 at 22:00 Insulin Detemir (Levemir Inj) 12 units Q12HR SQ Last administered on 05/24/16 08:06; Start 05/22/16 at 21:00 IV Flush (NS Flush) 2 ml BID IV FLUSH Last administered on 05/23/16 20:26; Start 05/21/16 at 09:00 Labetalol HCl 20 mg 20 mg Q4H PRN IV PUSH SBP > 160 Last administered on 23:47; Start 05/21/16 at 23:30 Magnesium Oxide 800 mg 800 mg UNSCH PRN PO For Magnesium 1.2 - 1.6 mg/dL; Start 05/21/16 at 17:30; Stop 05/22/16 at 00:31; Status DC Magnesium Sulfate 2 gm/Sodium Chloride 100 ml @ 50 mls/hr UNSCH PRN IV For Magnesium 1.2 - 1.6 mg/dL; Start 05/21/16 at 17:30; Stop 05/22/16 at 00:31; Status DC Magnesium Sulfate/ Dextrose (Magnesium Sulfate 1 Gm Premix) 100 ml @ 100 mls/ hr ONCE ONCE IV ; Start 05/24/16 at 09:00; Stop 05/24/16 at 09:59 Magnesium Sulfate/ Sodium Chloride (Magnesium Sulfate Inj/NS Inj) 100 ml @ 50 mls/hr UNSCH PRN IV For Magnesium 0.9 - 1.1 mg/dL; Start 05/21/16 at 17:30; Stop 05/22/16 at 00:31; Status DC Metoprolol Succinate (Toprol Xl) 50 mg DAILY PO Last administered on 05/24/16 08:05; Start 05/21/16 at 09:00 Metronidazole (Flagyl 500 Mg Inj) 100 ml @ 100 mls/hr Q6H IV Last administered on 05/24/16 03:42; Start 05/20/16 at 22:00 Miscellaneous Information ALL NURSING DEPARTME... UNSCH PRN XX SEE LABEL COMMENTS; Start 05/21/16 at 15:45; Stop 05/22/16 at 15:44; Status DC Morphine Sulfate (Morphine Inj) 3 mg Q3H PRN IV PUSH prn pain 6-10 Last administered on 05/22/16 21:27; Start 05/21/16 at 22:00 Nicardipine HCl 25 mg/Sodium Chloride 260 ml @ 0 mls/hr TITRATE PRN IV Keep SBP < 140; Start 05/20/16 at 22:00; Stop 05/22/16 at 00:31; Status DC Ondansetron HCl (Zofran Inj) 4 mg Q6H PRN IV NAUSEA OR VOMITING Last administered on 05/23/16 08:14; Start 05/20/16 at 22:00 Pantoprazole Sodium (Protonix Inj) 40 mg DAILY IV Last administered on 08:05; Start 05/21/16 at 09:00 Piperacillin Sod/ Tazobactam Sod 50 ml @ 100 mls/hr Q8H IV Last administered on 05/24/16 03:15; Start 05/21/16 at 04:00 Piperacillin Sod/ Tazobactam Sod (Zosyn 3.375 Gm Premix) 50 ml @ 100 mls/hr ONCE ONCE IV Last administered on 05/20/16 20:24; Start 05/20/16 at 19:15; Stop 05/20/16 at 19:44; Status DC Potassium Chloride 40 meq 40 meq ONCE ONCE PO Last administered on 05/24/16 08:17; Start 05/24/16 at 08:15; Stop 05/24/16 at 08:16; Status DC Potassium Phosphate 2000 mg 2,000 mg UNSCH PRN PO/TUBE SEE LABEL COMMENTS; Start 05/21/16 at 17:30; Stop 05/22/16 at 00:31; Status DC Potassium Phosphate/Sodium Chloride (Potassium Phosphate Inj/NS 250 ml Inj) 260 ml @ 42 mls/hr UNSCH PRN IV SEE LABEL COMMENTS; Start 05/21/16 at 17:30; Stop 05/22/16 at 00:31; Status DC Potassium Bicarb/ Potassium Chloride 50 meq 50 meq ONCE ONCE PO Last administered on 05/23/16 07:52; Start 05/23/16 at 07:15; Stop 05/23/16 at 07:16 ; Status DC Potassium Chloride (KCl 10 Meq Premix Inj) 100 ml @ 100 mls/hr Q1H IV Last administered on 05/22/16 21:29; Start 05/22/16 at 17:45; Stop 05/22/16 at 20:44 ; Status DC Potassium Chloride (KCl 20 Meq Premix Inj) 100 ml @ 50 mls/hr Q2H IV Last administered on 05/24/16 08:18; Start 05/24/16 at 09:00; Stop 05/24/16 at 12:59 Potassium Chloride (KCl 40 Meq/30 ml Liq) 40 meq UNSCH PRN PO/TUBE SEE LABEL COMMENTS; Start 05/21/16 at 17:30; Stop 05/22/16 at 00:31; Status DC Sodium Chloride (NS 1000 ml Inj) 1,000 ml @ 150 mls/hr Q6H40M IV Last administered on 05/23/16 21:28; Start 05/20/16 at 22:00 Sodium Phosphate/ Sodium Chloride (Sodium Phosphate Inj/NS 250 ml Inj) 250 ml @ 42 mls/hr UNSCH PRN IV For Phosphorus < 2.5 mg/dL; Start 05/21/16 at 17:30; Stop 05/22/16 at 00:31; Status DC Ticagrelor 90 mg 90 mg BID PO Last administered on 05/24/16 08:26; Start 05/21 at 09:00; Stop 05/24/16 at 08:32; Status DC Family History Mother: breast cancer Social History Smoked, quit age 24 No alcohol use No drug use 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 RESPIRATORY: Clear to auscultation. Breath sounds equal bilaterally. No wheezes , rales, or rhonchi. GASTROINTESTINAL: Abdomen soft, non-tender, nondistended. : External genitalia examined, atrophic vaginal introitus and vulva, no excoriations or bleeding, no active vaginal bleeding, no dry blood, no lesions. Laboratory Laboratory Tests Test 05/24/16 05:55 White Blood Count 6.3 Red Blood Count 4.41 Hemoglobin 10.8 Hematocrit 33.0 Mean Corpuscular Volume 74.7 Mean Corpuscular Hemoglobin 24.5 Mean Corpuscular Hemoglobin 32.7 Concent Red Cell Distribution Width 15.8 Platelet Count 217 Mean Platelet Volume 9.1 Neutrophils (%) (Auto) Lymphocytes (%) (Auto) Monocytes (%) (Auto) Eosinophils (%) (Auto) Basophils (%) (Auto) Neutrophils # (Auto) Lymphocytes # (Auto) Monocytes # (Auto) Eosinophils # (Auto) Basophils # (Auto) CBC Comment AUTO DIFF Sodium Level 142 Potassium Level 2.9 Chloride Level 113 Carbon Dioxide Level 19.0 Anion Gap 10 Blood Urea Nitrogen 7 Creatinine 0.70 Estimat Glomerular Filtration 82 Rate Random Glucose 110 Calcium Level 7.9 Magnesium Level 1.8 Total Bilirubin 2.3 Aspartate Amino Transf 66 (AST/SGOT) Alanine Aminotransferase 112 (ALT/SGPT) Alkaline Phosphatase 662 Total Protein 5.5 Albumin 2.3 Date/Time Procedure Status Source Growth 05/24/16 01:35 Stool Occult Blood (LALO) - Final Complete Stool Stool HEMOCCULT POSITIVE 05/22/16 08:46 Aerobic Blood Culture - Preliminary Resulted Blood Peripheral NO GROWTH IN 1 DAY 05/22/16 08:46 Anaerobic Blood Culture - Preliminary Resulted Blood Peripheral NO GROWTH IN 1 DAY (Catracho Pierce MD R2) Result Diagram: 05/24/1655 05/24/1655 Assessment and Plan Problem List: (1) Post-menopausal bleeding Status: Acute Plan: Post-menopausal bleeding in 71 year old for 3 weeks, very light spotting reported, no active bleeding currently. Most commonly this is due to a benign source like endometrial atrophy or endometrial polyps, but 5 to 10% of the time can indicate a malignant source, which warrants further workup. DDx includes: endometrial atrophy, endometrial polyps, endometrial carcinoma, cervical lesion , ovarian cancer, fallopian tube pathology. - Recommend outpatient endometrial biopsy, or at least an outpatient transvaginal ultrasound. - No active vaginal bleeding and hemodynamically stable, no intervention in the hospital. Please let gynecology know if there is significant active vaginal bleeding. - She does not currently have a hha, will add a referral as a discharge order. Discussed with Dr. Eden (Catracho Pierce MD R2) Attestation Patient seen and examined with the resident under direct supervision, I agree with the assessment and plan. (Alexander Montana MD) Catracho Pierce MD R2 May 24, 2016 09:20 Alexander Montana MD May 24, 2016 10:21
--- NOTE | 2016-05-24 09:22 | MB ---
cc: ANDREA PORRAS M.D. DATE OF CONSULTATION: 05/24/2016 REASON FOR CONSULTATION Evaluation for preoperative clearance for cholecystectomy. HISTORY OF PRESENT ILLNESS Ms. Howe is a 71-year-old woman well-known to me. She has severe coronary artery disease. Prior to her stent that she had of her LAD on June 01, 2015 she was having substernal chest pressure. I performed a cardiac catheterization on her June 05, 2015. At that time her ejection fraction was about 40% with anterior akinesis. The left main coronary artery appeared normal. The left anterior descending artery had a 95% proximal stenosis. I stented this utilizing a 2.75 x 12 mm Resolute stent with an excellent angiographic result. Note, however, there was significant multivessel disease involving distal vessels. This included the distal LAD which has diffuse 90% disease, 50% proximal circumflex disease with 90% disease very distally and the right coronary artery demonstrated 50% disease of the posterior descending artery branch and 95% distal PDA disease. Of note, clinically she has had resolution of her angina since her stent. She, however, is physically very sedentary. It is important, however, that she has not had any return of the symptoms she had prior to her stent. She has sleep apnea and apparently uses a mouthpiece. MEDICATIONS Her current medications include: 1. Aspirin 81 mg daily. 2. Ticagrelor 90 mg p.o. b.i.d. 3. Potassium for a low potassium level. 4. Amlodipine 5 mg daily for hypertension. 5. Toprol XL 50 mg daily. ALLERGIES None known. PAST MEDICAL HISTORY 1. Sleep apnea. 2. Breast cancer bilaterally 2007 and 2011. 3. Coronary artery disease described above. 4. Stroke in 2009. 5. Depression. 6. Type 2 diabetes. 7. Gastroesophageal reflux. 8. Hyperlipidemia. 9. Hypertension. 10. Metabolic syndrome. 11. Morbid obesity. 12. Neuropathy. 13. Sedentary lifestyle. 14. Thoracic aortic aneurysm measuring 4.[address] scan 2014. 15. TIA in the past. PAST SURGICAL HISTORY 1. Recent ERCP. 2. LAD stent June 05, 2015. 3. Previous . 4. Partial mastectomy left breast 2007. 5. Tonsillectomy at age 7. FAMILY HISTORY Positive for breast cancer in her mother. Coronary artery disease in her brother. Diabetes in grandfather and mother. SOCIAL HISTORY She smoked from age [age] only. Rarely drinks alcohol. REVIEW OF SYSTEMS Otherwise noncontributory. PHYSICAL EXAMINATION GENERAL: An obese, pleasant white female. She is coughing frequently during my assessment. VITAL SIGNS: She is normotensive to mildly hypertensive. She is in sinus rhythm. HEENT: Exam is unremarkable. NECK: No jugular venous distention. CHEST: Notable for frequent coughing. I do not hear any rales at this time. She has not had a chest x-ray in several days. CARDIAC: S1, S2, regular rate and rhythm. There is a 1/6 systolic ejection murmur. ABDOMEN: Very obese, soft. Cannot appreciate any masses. EXTREMITIES: Diminished pulses. No peripheral edema. EKG Her EKG on May 20 shows sinus tachycardia, no significant change from her old tracing. She has preserved R-waves in her anterior leads which is a good sign. LABORATORY Her most recent laboratory work is notable for hypokalemia and she is in the process of being repleted. She has microcytic anemia; I am not sure if that has been worked up. Liver tests are very elevated obviously. Creatinine is 0.7. IMPRESSION This is a 71-year-old female. She has diffuse coronary artery disease. She had a stent one year ago and is on Brilinta. Apparently surgery is somewhat urgent. She has had complete resolution of her angina since the LAD stent. On clinical grounds she appears stable to be able to come off Brilinta and have surgery. Obviously in a more elective situation I would take the time to get a nuclear stress test but it does not appear that we have that option. The disease that she had left after her cath was all distal and non-amenable to intervention. She is on a beta-maribell which need to be continued throughout the perioperative period. RECOMMENDATIONS I am going to go ahead and clear her for surgery, discontinue Brilinta, check an echo to assess LV function. She needs to continue on her beta-maribell throughout the perioperative period. Note that her surgical risk is elevated because of diffuse distal coronary disease. MD DELPHINE Ocasio/LORENA /8:36 AM /8:58 AM
[2016-05-24 09:34] LABS: EOSINOPHILS 6 % (0-4); NEUTROPHIL # MANUAL DIFF 4.2 TH/MM3 (1.8-7.7); POLYS (SEG NEUTROPHILS) 67 % (16-70); WBC DIFF SAMPLE 100
[2016-05-24 09:35] LABS: ACANTHOCYTES OCC (NORMAL); PLATELET ESTIMATE SMEAR NORMAL (NORMAL); PLATELET MORPHOLOGY NORMAL (NORMAL); SCAN/DIFF FINAL DIFF MANUAL
--- NOTE | 2016-05-24 11:03 | HHI.PR ---
Subjective Subjective Notes No complaints. She is hungry and would like regular food. Objective Vitals/I&O Vital Signs Date Time Temp Pulse Resp B/P Pulse Ox O2 Delivery O2 Flow Rate FiO2 05/24/16 08:03 98 05/24/16 08:00 97.8 80 20 155/72 05/22/16 21:45 21 05/21/16 16:30 Room Air 05/21/16 15:45 2 Labs Laboratory Tests Test 05/24/16 05:55 White Blood Count 6.3 Red Blood Count 4.41 Hemoglobin 10.8 Hematocrit 33.0 Mean Corpuscular Volume 74.7 Mean Corpuscular Hemoglobin 24.5 Mean Corpuscular Hemoglobin 32.7 Concent Red Cell Distribution Width 15.8 Platelet Count 217 Mean Platelet Volume 9.1 Neutrophils (%) (Auto) Lymphocytes (%) (Auto) Monocytes (%) (Auto) Eosinophils (%) (Auto) Basophils (%) (Auto) Neutrophils # (Auto) Lymphocytes # (Auto) Monocytes # (Auto) Eosinophils # (Auto) Basophils # (Auto) CBC Comment AUTO DIFF Differential Total Cells 100 Counted Neutrophils % (Manual) 67 Lymphocytes % 25 Monocytes % 2 Eosinophils % 6 Neutrophils # (Manual) 4.2 Differential Comment FINAL DIFF MANUAL Platelet Estimate NORMAL Platelet Morphology Comment NORMAL Acanthocytes OCC Sodium Level 142 Potassium Level 2.9 Chloride Level 113 Carbon Dioxide Level 19.0 Anion Gap 10 Blood Urea Nitrogen 7 Creatinine 0.70 Estimat Glomerular Filtration 82 Rate Random Glucose 110 Calcium Level 7.9 Magnesium Level 1.8 Total Bilirubin 2.3 Aspartate Amino Transf 66 (AST/SGOT) Alanine Aminotransferase 112 (ALT/SGPT) Alkaline Phosphatase 662 Total Protein 5.5 Albumin 2.3 Date/Time Procedure Status Source Growth 05/24/16 01:35 Stool Occult Blood (LALO) - Final Complete Stool Stool HEMOCCULT POSITIVE 05/22/16 08:46 Aerobic Blood Culture - Preliminary Resulted Blood Peripheral NO GROWTH IN 1 DAY 05/22/16 08:46 Anaerobic Blood Culture - Preliminary Resulted Blood Peripheral NO GROWTH IN 1 DAY Radiology Last Impressions GI Procedure 05/21/16 0000 Signed Impressions: Service Date/Time: Saturday, May 21, 2016 15:16 - CONCLUSION: Multiple filling defects identified within the common bile duct at the site of prior stones. Naila Stauffer MD Chest X-Ray 05/20/16 3439 Signed Impressions: Service Date/Time: Friday, May 20, 2016 18:48 - CONCLUSION: No acute disease. Catracho Haas MD Cholangiopancreatography MRI 05/20/16 0000 Signed Impressions: Service Date/Time: Friday, May 20, 2016 21:23 - CONCLUSION: 1. Dilatation of the common bile duct and central intrahepatic biliary system with multiple filling defects in the distal common bile duct most consistent with gallstones. 2. Cholelithiasis. Catracho Haas MD Abdomen/Pelvis CT 05/20/16 0000 Signed Impressions: Service Date/Time: Friday, May 20, 2016 19:41 - CONCLUSION: 1. The kidneys and ureters are unremarkable in appearance with no renal calculi, mass or hydronephrosis. 2. Evidence of mild central intrahepatic biliary ductal dilatation and dilatation of the common bile duct with no definite filling defect or mass identified.. 3. Small hiatal hernia. 4. Cholelithiasis again noted with no gallbladder wall thickening or inflammatory change. Catracho Haas MD Narrative Exam NAD, awake and alert Abd: soft, nontender A/P Assessment and Plan 71 yo F with multiple medical comorbidities with choledocholithiasis status post ERCP with sphincterotomy and stone extraction. LFTs improved today. Appreciate Dr. Farias input. He has order and ECHO. I spoke with him and after consideration we will check nuclear stress test- if significant disease it is possible she could require cath. If stable, will likely proceed with surgery early next week or possibly as outpatient. I stopped her IV fluids and started heart healthy diet. JameAlexander lazo MD May 24, 2016 11:03
--- NOTE | 2016-05-24 12:13 | RADRPT ---
EXAM DATE/TIME: 05/24/2016 11:08 [facility] COMPARISON: No previous studies available for comparison. INDICATIONS : Bleeding. MEDICAL HISTORY : Hypercholesterolemia. Hypertension. Carcinoma, breast. Menopausal over 10 years. Cerebrovascular acci dent. Dizziness. Hematemesis. Sleep apnea - CPAP. Whooping cough. Arthritis. Chemotherapy. SURGICAL HISTORY : Tonsillectomy. Appendectomy. section. Left eye muscle resection. Cardiac stents x 2. Tubal l igation. Bilateral partial mastectomy. ENCOUNTER: Initial ACUITY: 1 day PAIN SCORE: 0/10 LOCATION: Bilateral pelvis MEASUREMENTS: UTERUS: 6.5 x 3.2 x 5.9 cm ENDOMETRIAL STRIPE: 5 mm RIGHT OVARY: 3.7 x 2.6 x 3.0 cm LEFT OVARY: 3.6 x 2.6 x 2.3 cm FINDINGS: UTERUS: The myometrium has homogeneous echotexture without mass. The endometrial stripe is top normal thickne ss for the patient's age. RIGHT OVARY: Ovary contains no mass or significant cystic lesion. LEFT OVARY: Ovary contains no mass or significant cystic lesion. MISCELLANEOUS: No free fluid. CONCLUSION: Endometrium is top normal thickness for the patient's age. Uterus and ovaries are unr emarkable. No free fluid within the cul-de-sac. Ravin Phoenix MD on May 24, 2016 at 12:10 Board Certified Radiologist. This report was verified electronically.
--- NOTE | 2016-05-24 15:14 | HHI.PR ---
Subjective Remarks Follow-up visit cholelithiasis, status post ERCP with sphincterotomy and balloon extraction, dark stool. Patient states she is doing a lot better today. She did nuclear stress test studies for cardiology clearance. States that she was seen by POULTRY FEED SUPERVISOR and did an ultrasound without abnormal findings. Denies any black stool. Complain of upper chest congestion, coughing, states it started after ERCP done. Denies shortness of breath/dyspnea. Denies fevers , chills, nausea, vomiting, diarrhea. Objective Vitals Vital Signs Date Time Temp Pulse Resp B/P Pulse Ox O2 Delivery O2 Flow Rate FiO2 05/24/16 12:00 97.8 79 20 133/71 94 05/24/16 08:03 98 05/24/16 08:00 97.8 80 20 155/72 95 05/24/16 08:00 97.8 80 20 155/72 95 05/24/16 04:00 98.0 70 20 125/64 98 05/24/16 00:08 98.1 80 20 125/59 94 05/23/16 20:00 98.0 84 20 152/65 96 05/23/16 16:00 97.9 73 20 132/71 93 I/O 05/23/16 05/23/16 05/23/16 05/24/16 05/24/16 05/24/16 07:00 15:00 23:00 07:00 15:00 23:00 Intake Total 120 ml 720 ml 540 ml 1965 ml 480 ml Output Total 500 ml 350 ml 250 ml Balance -380 ml 370 ml 540 ml 1715 ml 480 ml Intake Oral 120 ml 720 ml 540 ml 720 ml 480 ml IV Total 1245 ml Output Urine Total 500 ml 350 ml 250 ml # Voids 1 1 3 # Bowel Movements 0 1 1 3 Result Diagram: 05/24/16 0555 05/24/16 0555 Imaging Last Impressions Pelvis Ultrasound 05/24/16 0000 Signed Impressions: Service Date/Time: Tuesday, May 24, 2016 11:08 - CONCLUSION: Endometrium is top normal thickness for the patient's age. Uterus and ovaries are unremarkable. No free fluid within the cul-de-sac. Ravin Phoenix MD GI Procedure 05/21/16 0000 Signed Impressions: Service Date/Time: Saturday, May 21, 2016 15:16 - CONCLUSION: Multiple filling defects identified within the common bile duct at the site of prior stones. Naila Stauffer MD Chest X-Ray 05/20/16 1827 Signed Impressions: Service Date/Time: Friday, May 20, 2016 18:48 - CONCLUSION: No acute disease. Catracho Haas MD Cholangiopancreatography MRI 05/20/16 0000 Signed Impressions: Service Date/Time: Friday, May 20, 2016 21:23 - CONCLUSION: 1. Dilatation of the common bile duct and central intrahepatic biliary system with multiple filling defects in the distal common bile duct most consistent with gallstones. 2. Cholelithiasis. Catracho Haas MD Abdomen/Pelvis CT 05/20/16 0000 Signed Impressions: Service Date/Time: Friday, May 20, 2016 19:41 - CONCLUSION: 1. The kidneys and ureters are unremarkable in appearance with no renal calculi, mass or hydronephrosis. 2. Evidence of mild central intrahepatic biliary ductal dilatation and dilatation of the common bile duct with no definite filling defect or mass identified.. 3. Small hiatal hernia. 4. Cholelithiasis again noted with no gallbladder wall thickening or inflammatory change. Catracho Haas MD Objective Remarks GENERAL: no distress SKIN: Warm and dry. HEAD: Normocephalic. EYES: No scleral icterus. No injection or drainage. NECK: Supple, trachea midline. No JVD or lymphadenopathy. CARDIOVASCULAR: Regular rate and rhythm without murmurs, gallops, or rubs. RESPIRATORY: Breath sounds equal bilaterally. No accessory muscle use. GASTROINTESTINAL: Abdomen soft, non-tender, nondistended. good bowel sounds MUSCULOSKELETAL: No cyanosis, or edema. BACK: Nontender without obvious deformity. No CVA tenderness. Procedures Status post ERCP A/P Problem List: (1) Hypertension ICD Code: I10 Status: Acute (2) Diabetes mellitus ICD Code: E11.9 Status: Acute (3) Transaminitis ICD Code: R74.0 Status: Acute (4) Choledocholithiasis with acute cholecystitis ICD Code: K80.42 Status: Acute (5) Dilated bile duct ICD Code: K83.8 Status: Acute Assessment and Plan Patient is a 71-year-old female who came in with several day history of vomiting and abdominal discomfort/fullness. CT of the abdomen with dilated bile ducts, no obvious obstruction. Patient was status post ERCP and sphincterectomy with extraction of the CBD stones. -choledocholithiasis S/P ERCP with sphincterotomy and balloon extraction Transaminitis GI ff. Ff LFTS. Improving LFTs. Continue on Zosyn. GS consulted for lap cholecystectomy. Seen by general surgery Dr. Kilgore. Recommends cardiovascular screening prior to surgical interventional. Cardiac clearance. Dark stool - Hemoccult - DC heparin for now, SCDs for DVT prop - CBC stable 10.8/33 Vaginal bleeding - has had it for about 1 month, since prior to hospital admission. - History of breast cancer - ENGINE TESTER Consult. No abnormalities and ultrasound. Endometrium is normal thickness for the patient age. Uterus and ovaries are unremarkable. No free fluid within the cul-de-sac. history of HTN, CAD continue on Brilinta, BB, CCB - As per surgery Will DC Brilinta 5 days prior to surgery CHANELLE- improved continue fluids Hypokalemia- replace with IC KCL x 3 recheck in am DM type 2 insulin requiring continue Levemer -up to 12 units bid and sliding scale GI Prop : Pepcid DVT Prop : SCD Written by Earnest Carreno, acting as scribe for Dr. Carney on 05/24/16 at 15:30. The documentation accurately reflects the work performed [id number] by me, Warner Carney D.O on 05/24/16 at 15:30. Discharge Planning Not ready for discharge Lakisha Carney DO May 24, 2016 15:14 Earnest Joyner May 24, 2016 16:10
--- NOTE | 2016-05-24 17:38 | HHI.GIFU ---
Subjective Remarks Resting in chair. States she had part of her stress test today and is going back for the second part tomorrow. States if this is okay and she is cleared by cardiology, then she will be scheduled for Lap. Cholecystectomy early next week. (Rosmery Montenegro) Objective Vitals I&O Vital Signs Date Time Temp Pulse Resp B/P Pulse Ox O2 Delivery O2 Flow Rate FiO2 05/24/16 16:00 98.0 74 20 146/70 95 05/24/16 12:00 97.8 79 20 133/71 94 05/24/16 08:03 98 05/24/16 08:00 97.8 80 20 155/72 95 05/24/16 08:00 97.8 80 20 155/72 95 05/24/16 04:00 98.0 70 20 125/64 98 05/24/16 00:08 98.1 80 20 125/59 94 05/23/16 20:00 98.0 84 20 152/65 96 I/O 05/23/16 05/23/16 05/23/16 05/24/16 05/24/16 05/24/16 07:00 15:00 23:00 07:00 15:00 23:00 Intake Total 120 ml 720 ml 540 ml 1965 ml 480 ml Output Total 500 ml 350 ml 250 ml Balance -380 ml 370 ml 540 ml 1715 ml 480 ml Intake Oral 120 ml 720 ml 540 ml 720 ml 480 ml IV Total 1245 ml Output Urine Total 500 ml 350 ml 250 ml # Voids 1 1 3 # Bowel Movements 0 1 1 3 Laboratory Laboratory Tests Test 05/24/16 05:55 White Blood Count 6.3 Red Blood Count 4.41 Hemoglobin 10.8 Hematocrit 33.0 Mean Corpuscular Volume 74.7 Mean Corpuscular Hemoglobin 24.5 Mean Corpuscular Hemoglobin 32.7 Concent Red Cell Distribution Width 15.8 Platelet Count 217 Mean Platelet Volume 9.1 Neutrophils (%) (Auto) Lymphocytes (%) (Auto) Monocytes (%) (Auto) Eosinophils (%) (Auto) Basophils (%) (Auto) Neutrophils # (Auto) Lymphocytes # (Auto) Monocytes # (Auto) Eosinophils # (Auto) Basophils # (Auto) CBC Comment AUTO DIFF Differential Total Cells 100 Counted Neutrophils % (Manual) 67 Lymphocytes % 25 Monocytes % 2 Eosinophils % 6 Neutrophils # (Manual) 4.2 Differential Comment FINAL DIFF MANUAL Platelet Estimate NORMAL Platelet Morphology Comment NORMAL Acanthocytes OCC Sodium Level 142 Potassium Level 2.9 Chloride Level 113 Carbon Dioxide Level 19.0 Anion Gap 10 Blood Urea Nitrogen 7 Creatinine 0.70 Estimat Glomerular Filtration 82 Rate Random Glucose 110 Calcium Level 7.9 Magnesium Level 1.8 Total Bilirubin 2.3 Aspartate Amino Transf 66 (AST/SGOT) Alanine Aminotransferase 112 (ALT/SGPT) Alkaline Phosphatase 662 Total Protein 5.5 Albumin 2.3 Date/Time Procedure Status Source Growth 05/24/16 11:30 Stool Occult Blood (LALO) Received Stool Stool Pending 05/24/16 01:35 Stool Occult Blood (LALO) - Final Complete Stool Stool HEMOCCULT POSITIVE 05/22/16 08:46 Aerobic Blood Culture - Preliminary Resulted Blood Peripheral NO GROWTH IN 2 DAYS 05/22/16 08:46 Anaerobic Blood Culture - Preliminary Resulted Blood Peripheral NO GROWTH IN 2 DAYS Imaging Last Impressions Pelvis Ultrasound 05/24/16 0000 Signed Impressions: Service Date/Time: Tuesday, May 24, 2016 11:08 - CONCLUSION: Endometrium is top normal thickness for the patient's age. Uterus and ovaries are unremarkable. No free fluid within the cul-de-sac. Ravin Phoenix MD GI Procedure 05/21/16 0000 Signed Impressions: Service Date/Time: Saturday, May 21, 2016 15:16 - CONCLUSION: Multiple filling defects identified within the common bile duct at the site of prior stones. Naila Stauffer MD Chest X-Ray 05/20/16 1827 Signed Impressions: Service Date/Time: Friday, May 20, 2016 18:48 - CONCLUSION: No acute disease. Catracho Haas MD Cholangiopancreatography MRI 05/20/16 0000 Signed Impressions: Service Date/Time: Friday, May 20, 2016 21:23 - CONCLUSION: 1. Dilatation of the common bile duct and central intrahepatic biliary system with multiple filling defects in the distal common bile duct most consistent with gallstones. 2. Cholelithiasis. Catracho Haas MD Abdomen/Pelvis CT 05/20/16 0000 Signed Impressions: Service Date/Time: Friday, May 20, 2016 19:41 - CONCLUSION: 1. The kidneys and ureters are unremarkable in appearance with no renal calculi, mass or hydronephrosis. 2. Evidence of mild central intrahepatic biliary ductal dilatation and dilatation of the common bile duct with no definite filling defect or mass identified.. 3. Small hiatal hernia. 4. Cholelithiasis again noted with no gallbladder wall thickening or inflammatory change. Catracho Haas MD Physical Exam HEENT: Normocephalic; atraumatic; no jaundice. CHEST: CTA CARDIAC: RRR ABDOMEN: Soft, nondistended, nontender; no hepatosplenomegaly; bowel sounds are present in all four quadrants. EXTREMITIES: No clubbing, cyanosis, or edema. SKIN: Normal; no rash; no jaundice. AUTOMATIC PRINT DEVELOPER: No focal deficits; alert and oriented times three. (Rosmery Montenegro [facility]) Assessment and Plan Plan ASSESSMENT: - Abdominal pain, nausea, vomiting with elevated LFTs and choledocholithiasis. CT scan abdomen and pelvis with IV contrast (05/20/16) revealed the kidneys and ureters are unremarkable in appearance with no renal calculi, mass, or hydronephrosis, evidence of mild central intrahepatic biliary ductal dilatation and dilation of the common bile duct with no definite filling defect or mass identified, small hiatal hernia, cholelithiasis again noted with no gallbladder wall thickening or inflammatory change. MRCP without contrast (05/20/16) revealed dilation of the common bile duct and central intrahepatic biliary system with multiple filling defects in the distal common bile duct most consistent with gallstones, cholelithiasis. S/P ERCP with sphincterotomy and balloon extraction (05/21/16)----> choledocholithiasis. Clinically improved and LFTs are now trending down. T. Biil 2.3, AST 66, ALT 112, Alk Phosph 662. GS following, Cardiology has been consulted for pre-op clearance. She had part of stress test today and will get the other half tomorrow. If she is cleared by cardiology, then she will have lap. pacheco early next week. - Elevated LFTs secondary to choledocholithiasis. S/p ERCP as above. LFTs improving. GS consulted. - Cholelithiasis, choledocholithiasis. S/P ERCP. GS Consulted. - Hemoccult positive stool. S/P ercp last week. 10.8/33.0. - CAD with hx of stent placement on Brilinta at home. Cardiology consulted for preop clearance. - Elevated Troponin, mild. Per CCM - CHANELLE, hyponatremia. Mild. - Vaginal bleeding x 4 weeks. Pt reports 4 week hx of scant to [place] of dark red vaginally bleeding. Denies any blood in stool and states she does not have this with bowel movements. Of note, she did tell another provider black stools. Hemoccult stools +. However, she just had ERCP. GWOT IA/ILO INTELLIGENCE SUPPORT, Pelvic US with endometrium top normal thickness for the pateint' s age. Uterus and ovaries are unremarkable. No free fluid within the cul-de-sac. - Diabetes, hypertension, hyperlipidemia, anxiety/depression per primary PLAN: - JONG - PPI - CBC, LFT in am - GS evaluation for lap. cholecystectomy once cleared by cardiology - Monitor for GI bleeding - Further recommendations to follow based on results of above - Pt seen and examined by Dr. Arboleda and myself and this note is written on his behalf (Rosmery Monten[place]) Physician Comments Patient seen and examined Agree with above Continue current supportive care Monitor labs Labs much improved Decision now is up to general surgery for laparoscopic cholecystectomy once cleared by cardiology and patient is safe to proceed with the surgery (Abhijit Arboleda MD) Rosmery Montenegro May 24, 2016 17:38 Abhijit Arboleda MD May 24, 2016 23:11
--- NOTE | 2016-05-24 22:01 | EC ---
Study Study Date:05/24/2016 STUDY CONCLUSIONS SUMMARY - Procedure narrative: Transthoracic echocardiography. Image quality was poor. Scanning was performed from the parasternal, apical, and subcostal acoustic windows. - Left ventricle: The cavity size was normal. Wall thickness was normal. Systolic function was possibly low normal. Endocardial borders are not well visualized. The estimated ejection fraction was roughly 50%. Regional wall motion abnormalities cannot be excluded. - Mitral valve: Trace regurgitation. - Tricuspid valve: Trace regurgitation. If LV function is below 40, please consider prescribing an ACEI or ARB or document rationale for non-use. PROCEDURE DATA STUDY STATUS: Elective. Procedure: Transthoracic echocardiography. Image quality was poor. Scanning was performed from the parasternal, apical, and subcostal acoustic windows. Study completion: The patient tolerated the procedure well. Transthoracic echocardiography. M-mode, complete 2D, complete spectral Doppler, and color Doppler. Patient status: Inpatient. CARDIAC ANATOMY LEFT VENTRICLE: The cavity size was normal. Wall thickness was normal. Systolic function was possibly low normal. Endocardial borders are not well visualized. The estimated ejection fraction was roughly 50%. Regional wall motion abnormalities cannot be excluded. AORTIC VALVE: Trileaflet; normal thickness leaflets. Doppler: Transvalvular velocity was within the normal range. There was no stenosis. No regurgitation. AORTA: Aortic root: The aortic root was normal in size. MITRAL VALVE: Structurally normal valve. Doppler: Transvalvular velocity was within the normal range. There was no evidence for stenosis. Trace regurgitation. LEFT ATRIUM: The atrium was normal in size. RIGHT VENTRICLE: The cavity size was normal. Wall thickness was normal. PULMONIC VALVE: Doppler: Transvalvular velocity was within the normal range. There was no evidence for stenosis. No regurgitation. TRICUSPID VALVE: Structurally normal valve. Doppler: Transvalvular velocity was within the normal range. Trace regurgitation. PULMONARY ARTERY: The main pulmonary artery was normal-sized. Systolic pressure was within the normal range. RIGHT ATRIUM: The atrium was normal in size. PERICARDIUM: There was no pericardial effusion. SYSTEMIC VEINS: Inferior vena cava: The vessel was normal in size. BASIC MEASUREMENTS ADULT NORMAL Left ventricle LV internal dimension, ED, chordal level, *41.6 mm 43-52 PLAX LV internal dimension, ES, chordal level, 30 mm 23-38 PLAX Fractional shortening, chordal level, PLAX *28 % >29 LV posterior wall thickness, ED 12.1 mm IVS/LVPW ratio, ED *1.52 <1.3 Ventricular septum Septal thickness, ED 18.4 mm Aortic valve Leaflet separation 19 mm 15-26 Right ventricle RV internal dimension, ED, PLAX 30.4 mm 19-38 BASIC MEASUREMENTS ADULT NORMAL Aortic valve Leaflet separation 19 mm 15-26 Aorta Root diameter, ED 32 mm 20-37 Left atrium Anterior-posterior dimension, ES 34 mm 19-40 LA/aortic root ratio 1.06 LEGEND: Mean values are shown as u=mean value. Asterisk (*) hernandez values outside specified normal range. Prepared and signed by Cuauhtemoc Zhang [id number]
[2016-05-25] VITALS: BP 145/73; PULSE 85; RESP 17; TEMP 98.2; O2SAT 97
[2016-05-25 04:00] VITALS: BP 144/65; PULSE 76; RESP 17; TEMP 97.5; O2SAT 95
[2016-05-25] MEDS: CHLORHEXIDINE GLUCONATE 2 % 1 PACK (2 CLOTHS) TOP SCH (04:00)
[2016-05-25] MEDS: INSULIN ASPART SUPPLEMENTAL SCALE SQ SCH ×4 (04:00→22:00)
[2016-05-25] MEDS: metroNIDAZOLE 500 MG INJ 100 ML IV SCH ×4 (04:22→22:46)
[2016-05-25] MEDS: PIPERACIL-TAZO 3.375 GM PREMIX 50 ML IV SCH ×3 (04:23→22:46)
[2016-05-25 08:00] VITALS: BP 159/72; PULSE 81; RESP 20; TEMP 97.9; O2SAT 97
[2016-05-25] MEDS: SODIUM CHLORIDE 0.9% FLUSH 5 ML FLUSH IV FLUSH SCH ×2 (09:00→22:46)
[2016-05-25] MEDS: INSULIN DETEMIR 100 UNITS/ML VIAL SQ SCH ×2 (09:00→22:46)
[2016-05-25] MEDS: METOPROLOL SUCCINATE 50 MG EXTENDED RELEASE TAB PO SCH (09:00)
[2016-05-25 09:37] VITALS: O2SAT 95
[2016-05-25] MEDS: ASPIRIN 81 MG CHEW TAB PO SCH (09:37)
[2016-05-25] MEDS: buPROPion HCL 75 MG TAB PO SCH (09:37)
[2016-05-25] MEDS: ANASTROZOLE 1 MG TAB PO SCH (09:37)
[2016-05-25] MEDS: DOCUSATE SODIUM 100 MG CAP PO SCH ×2 (09:37→21:00)
[2016-05-25] MEDS: PANTOPRAZOLE SOD 40 MG DELAYED RELEASE TAB PO SCH (09:37)
[2016-05-25] MEDS: amLODIPine BESYLATE 5 MG TAB PO SCH (09:37)
[2016-05-25] MEDS: DULoxetine HCl DR 60 MG CAP PO SCH (09:37)
[2016-05-25] MEDS ORDERED: REGADENOSON INJ 0.4 MG/5 ML SYR ONE (12:39)
[2016-05-25] MEDS ORDERED: AMINOPHYLLINE INJ 500 MG/20 ML VIAL IV ONE (13:28)
--- NOTE | 2016-05-25 14:17 | HHI.GIFU ---
Subjective Remarks Patient is sitting up in bed eating lunch, just got back from stress test, accompanied by visitors. Denies nausea, vomiting or abd pain, she tells me , some old blood was noted in the stool 3 days ago. stool on 05/24 was heme (+), second specimen was Hemoccult negative, and the third specimen pending (Elizabeth Whelan) Objective Vitals I&O Vital Signs Date Time Temp Pulse Resp B/P Pulse Ox O2 Delivery O2 Flow Rate FiO2 05/25/16 09:37 95 21 05/25/16 08:00 97.9 81 20 159/72 97 05/25/16 04:00 97.5 76 17 144/65 95 05/25/16 00:00 98.2 85 17 145/73 97 05/24/16 20:00 97.8 82 20 156/69 97 05/24/16 16:00 98.0 74 20 146/70 95 I/O 05/24/16 05/24/16 05/24/16 05/25/16 05/25/16 05/25/16 07:00 15:00 23:00 07:00 15:00 23:00 Intake Total 1965 ml 480 ml 240 ml 120 ml Output Total 250 ml 300 ml Balance 1715 ml 480 ml -60 ml 120 ml Intake Oral 720 ml 480 ml 240 ml 120 ml IV Total 1245 ml Output Urine Total 250 ml 300 ml # Voids 1 3 2 # Bowel Movements 1 3 1 Laboratory Date/Time Procedure Status Source Growth 05/25/16 10:15 Stool Occult Blood ([facility]ALO) Received Stool Stool Pending 05/24/16 11:30 Stool Occult Blood ([facility]ALO) - Final Complete Stool Stool HEMOCCULT NEGATIVE 05/22/16 08:46 Aerobic Blood Culture - Preliminary Resulted Blood Peripheral NO GROWTH IN 3 DAYS 05/22/16 08:46 Anaerobic Blood Culture - Preliminary Resulted Blood Peripheral NO GROWTH IN 3 DAYS 05/20/16 18:55 Aerobic Blood Culture - Final Complete Blood Peripheral NO GROWTH IN 5 DAYS 05/20/16 18:55 Anaerobic Blood Culture - Final Complete Blood Peripheral NO GROWTH IN 5 DAYS Imaging Last Impressions Pelvis Ultrasound 05/24/16 0000 Signed Impressions: Service Date/Time: Tuesday, May 24, 2016 11:08 - CONCLUSION: Endometrium is top normal thickness for the patient's age. Uterus and ovaries are unremarkable. No free fluid within the cul-de-sac. Ravin Phoenix MD GI Procedure 05/21/16 0000 Signed Impressions: Service Date/Time: Saturday, May 21, 2016 15:16 - CONCLUSION: Multiple filling defects identified within the common bile duct at the site of prior stones. Naila Stauffer MD Chest X-Ray 05/20/16 1827 Signed Impressions: Service Date/Time: Friday, May 20, 2016 18:48 - CONCLUSION: No acute disease. Catracho Haas MD Cholangiopancreatography MRI 05/20/16 0000 Signed Impressions: Service Date/Time: Friday, May 20, 2016 21:23 - CONCLUSION: 1. Dilatation of the common bile duct and central intrahepatic biliary system with multiple filling defects in the distal common bile duct most consistent with gallstones. 2. Cholelithiasis. Catracho Haas MD Abdomen/Pelvis CT 05/20/16 0000 Signed Impressions: Service Date/Time: Friday, May 20, 2016 19:41 - CONCLUSION: 1. The kidneys and ureters are unremarkable in appearance with no renal calculi, mass or hydronephrosis. 2. Evidence of mild central intrahepatic biliary ductal dilatation and dilatation of the common bile duct with no definite filling defect or mass identified.. 3. Small hiatal hernia. 4. Cholelithiasis again noted with no gallbladder wall thickening or inflammatory change. Catracho Haas MD Physical Exam HEENT: Normocephalic; atraumatic; no jaundice. CHEST: CTA CARDIAC: RRR ABDOMEN: Soft, nondistended, nontender; no hepatosplenomegaly; bowel sounds are present in all four quadrants. EXTREMITIES: No clubbing, cyanosis, or edema. SKIN: Normal; no rash; no jaundice. LANDSCAPE SUPERVISOR: No focal deficits; alert and oriented times three. (Tip,Elizabeth LENTZ) Assessment and Plan Plan ASSESSMENT: - Abdominal pain, nausea, vomiting with elevated LFTs and choledocholithiasis. CT scan abdomen and pelvis with IV contrast (05/20/16) revealed the kidneys and ureters are unremarkable in appearance with no renal calculi, mass, or hydronephrosis, evidence of mild central intrahepatic biliary ductal dilatation and dilation of the common bile duct with no definite filling defect or mass identified, small hiatal hernia, cholelithiasis again noted with no gallbladder wall thickening or inflammatory change. MRCP without contrast (05/20/16) revealed dilation of the common bile duct and central intrahepatic biliary system with multiple filling defects in the distal common bile duct most consistent with gallstones, cholelithiasis. S/P ERCP with sphincterotomy and balloon extraction (05/21/16)----> choledocholithiasis. Clinically improved and LFTs are now trending down. T. Biil 2.3, AST 66, ALT 112, Alk Phosph 662. GS following, Cardiology has been consulted for pre-op clearance. She had part of stress test today and will get the other half tomorrow. If she is cleared by cardiology, then she will have lap. pacheco early next week. - Elevated LFTs secondary to choledocholithiasis. S/p ERCP as above. LFTs improving. GS consulted. - Cholelithiasis, choledocholithiasis. S/P ERCP. GS Consulted. - Hemoccult positive stool. S/P ercp last week. 10.8/33.0. - CAD with hx of stent placement on Brilinta at home. Cardiology consulted for preop clearance. - Elevated Troponin, mild. Per CCM - CHANELLE, hyponatremia. Mild. - Vaginal bleeding x 4 weeks. Pt reports 4 week hx of scant to [place] of dark red vaginally bleeding. Denies any blood in stool and states she does not have this with bowel movements. Of note, she did tell another provider black stools. Hemoccult stools +. However, she just had ERCP. 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 Uterus and ovaries are unremarkable. No free fluid within the cul-de-sac. - Diabetes, hypertension, hyperlipidemia, anxiety/depression per primary 05/25/16 Denies nausea, vomiting or abd pain, she tells me , some old blood was noted in the stool 3 days ago. stool on 05/24 was heme (+), second specimen was Hemoccult negative, and the third specimen pending LFTs continue to improve, hgb is stable at 10.8, no more bleeding reported. Awaiting cardiology clearance for lap pacheco possibly on Friday PLAN: - JONG - PPI - CBC, LFT in am - GS evaluation for lap. cholecystectomy once cleared by cardiology - Monitor for GI bleeding/ await third stool results - Further recommendations to follow based on results of above - Pt seen and examined by Dr. Arboleda and myself and this note is written on his behalf (Elizabeth Whelan) Physician Comments Patient seen and examined Agree with above Continue with current supportive care Monitor labs No further recommendations from a GI perspective we will sign off (Abhijit Arboleda MD) Elizabeth Whelan May 25, 2016 14:17 Abhijit Arboleda MD May 25, 2016 20:06
[2016-05-25 16:00] VITALS: BP 153/77; PULSE 77; RESP 20; TEMP 98; O2SAT 97
--- NOTE | 2016-05-25 16:06 | HHI.PR ---
Subjective Remarks Follow-up visit cholelithiasis, status post ERCP with sphincterotomy and balloon extraction, dark stool. Ms. Davis is doing well. Denies any acute concerns. Denies any chest pain, shortness of breath, fever, chills. She underwent Myocardial nuclear perfusion study. Objective Vitals Vital Signs Date Time Temp Pulse Resp B/P Pulse Ox O2 Delivery O2 Flow Rate FiO2 05/25/16 09:37 95 21 05/25/16 08:00 97.9 81 20 159/72 97 05/25/16 04:00 97.5 76 17 144/65 95 05/25/16 00:00 98.2 85 17 145/73 97 05/24/16 20:00 97.8 82 20 156/69 97 I/O 05/24/16 05/24/16 05/24/16 05/25/16 05/25/16 05/25/16 07:00 15:00 23:00 07:00 15:00 23:00 Intake Total 1965 ml 480 ml 240 ml 120 ml Output Total 250 ml 300 ml Balance 1715 ml 480 ml -60 ml 120 ml Intake Oral 720 ml 480 ml 240 ml 120 ml IV Total 1245 ml Output Urine Total 250 ml 300 ml # Voids 1 3 2 # Bowel Movements 1 3 1 Result Diagram: 05/24/16 0555 05/24/16 0555 Imaging Last Impressions Pelvis Ultrasound 05/24/16 0000 Signed Impressions: Service Date/Time: Tuesday, May 24, 2016 11:08 - CONCLUSION: Endometrium is top normal thickness for the patient's age. Uterus and ovaries are unremarkable. No free fluid within the cul-de-sac. Ravin Phoenix MD GI Procedure 05/21/16 0000 Signed Impressions: Service Date/Time: Saturday, May 21, 2016 15:16 - CONCLUSION: Multiple filling defects identified within the common bile duct at the site of prior stones. Naila Stauffer MD Chest X-Ray 05/20/16 1827 Signed Impressions: Service Date/Time: Friday, May 20, 2016 18:48 - CONCLUSION: No acute disease. Catracho Haas MD Cholangiopancreatography MRI 05/20/16 0000 Signed Impressions: Service Date/Time: Friday, May 20, 2016 21:23 - CONCLUSION: 1. Dilatation of the common bile duct and central intrahepatic biliary system with multiple filling defects in the distal common bile duct most consistent with gallstones. 2. Cholelithiasis. Catracho Haas MD Abdomen/Pelvis CT 05/20/16 0000 Signed Impressions: Service Date/Time: Friday, May 20, 2016 19:41 - CONCLUSION: 1. The kidneys and ureters are unremarkable in appearance with no renal calculi, mass or hydronephrosis. 2. Evidence of mild central intrahepatic biliary ductal dilatation and dilatation of the common bile duct with no definite filling defect or mass identified.. 3. Small hiatal hernia. 4. Cholelithiasis again noted with no gallbladder wall thickening or inflammatory change. Catracho Haas MD Objective Remarks GENERAL: AOx3, NAD. SKIN: Warm and dry. HEAD: Normocephalic. EYES: No scleral icterus. No injection or drainage. NECK: Supple, trachea midline. No JVD or lymphadenopathy. CARDIOVASCULAR: Regular rate and rhythm without murmurs, gallops, or rubs. RESPIRATORY: Breath sounds equal bilaterally. No accessory muscle use. GASTROINTESTINAL: Abdomen soft, non-tender, nondistended. MUSCULOSKELETAL: No cyanosis, or edema. BACK: Nontender without obvious deformity. No CVA tenderness. Procedures Status post ERCP CONCLUSION: Multiple filling defects identified within the common bile duct at the site of prior stones. 05/24/2016 - Procedure narrative: Transthoracic echocardiography. Image quality was poor. Scanning was performed from the parasternal, apical, and subcostal acoustic windows. - Left ventricle: The cavity size was normal. Wall thickness was normal. Systolic function was possibly low normal. Endocardial borders are not well visualized. The estimated ejection fraction was roughly 50%. Regional wall motion abnormalities cannot be excluded. - Mitral valve: Trace regurgitation. - Tricuspid valve: Trace regurgitation. A/P Problem List: (1) Hypertension ICD Code: I10 Status: Acute (2) Diabetes mellitus ICD Code: E11.9 Status: Acute (3) Transaminitis ICD Code: R74.0 Status: Acute (4) Choledocholithiasis with acute cholecystitis ICD Code: K80.42 Status: Acute (5) Dilated bile duct ICD Code: K83.8 Status: Acute Assessment and Plan Patient is a 71-year-old female who came in with several day history of vomiting and abdominal discomfort/fullness. CT of the abdomen with dilated bile ducts, no obvious obstruction. Patient was status post ERCP and sphincterectomy with extraction of the CBD stones. - choledocholithiasis S/P ERCP with sphincterotomy and balloon extraction - Transaminitis - Continue Zosyn 3.375 g Q8hrs, Flagyl 500mg Q6hrs. - Will discontinue Flagyl as monotherapy with Zosyn 3.375 Q6hrs should be adequate. - General surgery following. - Dr. Farias (Cardiology) initially cleared for discharge on 05/24/2016. - However, a nuclear stress test was done which shows EF 61%, no fixed defects were evident. - Patient can likely be cleared for Lap cholecystectomy. Final clearance should be obtained from Cardiology. - General surgery requests 5 days off of Brilinta. Last dose given on 2016. - Dark stool with positive Hemoccult initially, second specimen was negative. - Off heparin, SCDs for DVT prop - CBC stable 10.8/33 - GI signed off on 05/25/2016. - Vaginal bleeding - has had it for about 1 month, started prior to hospital admission. - History of breast cancer - SPUDDER Consult. No abnormalities and ultrasound. Endometrium is normal thickness for the patient age. Uterus and ovaries are unremarkable. No free fluid within the cul-de-sac. - Appreciate Sheet Metal Duct Worker Supervisor evaluation. Outpatient endometrial biopsy or transvaginal US recommended. - Hypertension - Coronary artery disease s/p PCI/Stent to LAD on 06/01/2015. - Patient has been on Brilinta, BB, CCB - Cardiology discontinued Brilinta on 05/24/2016 in anticipation of Laparoscopic cholecystectomy. - Continue Amlodipine 5mg Qday, Metoprolol succ 50mg Qday. - Mild CHANELLE- resolved. 1.14 --> 0.70. - Hypokalemia- replaced potassium. - BMP in the AM. - DM type 2 - continue Levemir 12 units bid and sliding scale - Will add pre-meal insulin 3 units TIDAC if premeal glucose > 110 Full code. SCDs. Lakisha Carney DO May 25, 2016 16:06
--- NOTE | 2016-05-25 16:28 | RADRPT ---
EXAM DATE/TIME: 05/24/2016 14:01 [facility] COMPARISON: No previous studies available for comparison. INDICATIONS : Pre-op caridac clearance for cholecystectomy. Cardiac stents and cardiac cath history. Coronary arter y disease. DOSE: 29.8 mCi Tc99m Myoview at stress. 32.1 mCi Tc99m Myoview at rest. 0.4 mg Lexiscan STRESS SYMPTOMS: Nausea. MEDICATIONS: 1.) 100 mg Aminophylline IV EJECTION FRACTION: 61% MEDICAL HISTORY : Hypertension. Diabetes mellitus type 2. Carcinoma, breast. SURGICAL HISTORY : Tubal ligation. Mastectomy, bilateral. section. ENCOUNTER: Initial ACUITY: 2 days PAIN SCALE: 3/10 LOCATION: Bilateral chest TECHNIQUE: The patient underwent pharmacologic stress with infusion of prescribed dose. Continuous ECG tracing was monitored during stress. Gated SPECT imaging was performed after stress and conventional SPECT i maging was performed at rest. The examination was performed on a SPECT/CT scanner, both attenuation and non-corrected datasets were reviewed. FINDINGS: The study is abnormal. There is redistribution in the lateral and septal wall to the apex. This inv olves the moderate amount of myocardium. There is minimal hypokinesis in this segment as well. Ther e are no fixed defects to evident. CONCLUSION: Positive for stress-induced ischemia.. RISK CATEGORY: Intermediate (1-3% Annual Mortality Rate) Glenn Ulloa MD FACR on May 25, 2016 at 16:24 Board Certified Radiologist. This report was verified electronically.
[2016-05-25 20:00] VITALS: BP 126/64; PULSE 83; RESP 18; TEMP 98; O2SAT 95
[2016-05-26] VITALS: BP 104/61; PULSE 83; RESP 17; TEMP 97.6; O2SAT 97
[2016-05-26] MEDS: INSULIN ASPART SUPPLEMENTAL SCALE SQ SCH ×4 (04:00→21:13)
[2016-05-26] MEDS: CHLORHEXIDINE GLUCONATE 2 % 1 PACK (2 CLOTHS) TOP SCH (04:00)
[2016-05-26] MEDS: PIPERACIL-TAZO 3.375 GM PREMIX 50 ML IV SCH ×4 (04:33→23:30)
[2016-05-26 08:00] VITALS: BP 162/78; PULSE 89; RESP 20; TEMP 97.8; O2SAT 96
[2016-05-26] MEDS: INSULIN ASPART 1,000 UNITS/10 ML VIAL SQ SCH ×3 (08:00→16:54)
[2016-05-26 08:01] LABS: HEMATOCRIT 31.9 % (35.0-46.0); MEAN CELL VOLUME 75.3 FL (80.0-100.0); MEAN CORPUSCULAR HEMOGLOBIN 24.5 PG (27.0-34.0); MEAN CORPUSCULAR HGB CONC 32.5 % (32.0-36.0); PLATELET COUNT 255 TH/MM3 (150-450); RED BLOOD COUNT 4.23 MIL/MM3 (4.00-5.30); RED CELL DISTRIBUTION WIDTH 16.1 % (11.6-17.2); WHITE BLOOD COUNT 5.3 TH/MM3 (4.0-11.0)
[2016-05-26 08:11] LABS: HEMO FLAGS AUTO DIFF
[2016-05-26 08:31] LABS: BICARBONATE 23.1 MEQ/L (21.0-32.0); INDIRECT BILIRUBIN 0.5 MG/DL (0.0-0.8); TOTAL BILIRUBIN ADULT 1.2 MG/DL (0.2-1.0)
[2016-05-26 08:36] LABS: POTASSIUM 2.8 MEQ/L (3.5-5.1)
[2016-05-26 08:40] VITALS: O2SAT 96
[2016-05-26] MEDS ORDERED: POTASSIUM CHLORIDE 10 MEQ CONTROLLED RELEASE TAB PO ONE (09:00)
[2016-05-26] MEDS: SODIUM CHLORIDE 0.9% FLUSH 5 ML FLUSH IV FLUSH SCH ×2 (09:00→21:12)
[2016-05-26] MEDS: DOCUSATE SODIUM 100 MG CAP PO SCH ×2 (09:00→21:00)
[2016-05-26] MEDS: INSULIN DETEMIR 100 UNITS/ML VIAL SQ SCH ×2 (09:00→21:13)
[2016-05-26] MEDS: POTASSIUM CHLOR 10 MEQ PREMIX 100 ML IV SCH ×3 (10:00→11:00)
[2016-05-26] MEDS: buPROPion HCL 75 MG TAB PO SCH (10:11)
[2016-05-26] MEDS: DULoxetine HCl DR 60 MG CAP PO SCH (10:11)
[2016-05-26] MEDS: ANASTROZOLE 1 MG TAB PO SCH (10:11)
[2016-05-26] MEDS: PANTOPRAZOLE SOD 40 MG DELAYED RELEASE TAB PO SCH (10:11)
[2016-05-26] MEDS: ASPIRIN 81 MG CHEW TAB PO SCH (10:11)
[2016-05-26] MEDS: METOPROLOL SUCCINATE 50 MG EXTENDED RELEASE TAB PO SCH (10:11)
[2016-05-26] MEDS: amLODIPine BESYLATE 5 MG TAB PO SCH (10:12)
[2016-05-26 11:31] LABS: BANDS 5 % (0-6); EOSINOPHILS 4 % (0-4); MYELOCYTES 1 % (0-0); NEUTROPHIL # MANUAL DIFF 3.9 TH/MM3 (1.8-7.7); POLYS (SEG NEUTROPHILS) 68 % (16-70); WBC DIFF SAMPLE 100
[2016-05-26 11:32] LABS: OVALOCYTES 1+ (NORMAL); PLATELET ESTIMATE SMEAR NORMAL (NORMAL); PLATELET MORPHOLOGY NORMAL (NORMAL); SCAN/DIFF FINAL DIFF MANUAL
[2016-05-26 12:00] VITALS: BP 157/74; PULSE 71; RESP 20; TEMP 98.2; O2SAT 95
--- NOTE | 2016-05-26 13:54 | HHI.PR ---
Subjective Subjective Notes pt lying in bed no abd pain no NV Objective Vitals/I&O Vital Signs Date Time Temp Pulse Resp B/P Pulse Ox O2 Delivery O2 Flow Rate FiO2 05/26/16 09:55 Room Air 05/26/16 08:40 96 21 05/26/16 08:00 97.8 89 20 162/78 Labs Laboratory Tests Test 05/26/16 06:48 White Blood Count 5.3 Red Blood Count 4.23 Hemoglobin 10.4 Hematocrit 31.9 Mean Corpuscular Volume 75.3 Mean Corpuscular Hemoglobin 24.5 Mean Corpuscular Hemoglobin 32.5 Concent Red Cell Distribution Width 16.1 Platelet Count 255 Mean Platelet Volume 8.8 Neutrophils (%) (Auto) Lymphocytes (%) (Auto) Monocytes (%) (Auto) Eosinophils (%) (Auto) Basophils (%) (Auto) Neutrophils # (Auto) Lymphocytes # (Auto) Monocytes # (Auto) Eosinophils # (Auto) Basophils # (Auto) CBC Comment AUTO DIFF Differential Total Cells 100 Counted Neutrophils % (Manual) 68 Band Neutrophils % 5 Lymphocytes % 16 Monocytes % 6 Eosinophils % 4 Neutrophils # (Manual) 3.9 Myelocytes 1 Differential Comment FINAL DIFF MANUAL Platelet Estimate NORMAL Platelet Morphology Comment NORMAL Ovalocytes 1+ Sodium Level 142 Potassium Level 2.8 Chloride Level 109 Carbon Dioxide Level 23.1 Anion Gap 10 Blood Urea Nitrogen 7 Creatinine 0.74 Estimat Glomerular Filtration 77 Rate Random Glucose 138 Calcium Level 7.9 Total Bilirubin 1.2 Direct Bilirubin 0.7 Indirect Bilirubin 0.5 Aspartate Amino Transf 34 (AST/SGOT) Alanine Aminotransferase 62 (ALT/SGPT) Alkaline Phosphatase 470 Total Protein 5.6 Albumin 2.3 Date/Time Procedure Status Source Growth 05/25/16 10:15 Stool Occult Blood ([facility]ALO) - Final Complete Stool Stool HEMOCCULT POSITIVE 05/22/16 08:46 Aerobic Blood Culture - Preliminary Resulted Blood Peripheral NO GROWTH IN 4 DAYS 05/22/16 08:46 Anaerobic Blood Culture - Preliminary Resulted Blood Peripheral NO GROWTH IN 4 DAYS Radiology Last Impressions GI Procedure 05/21/16 0000 Signed Impressions: Service Date/Time: Saturday, May 21, 2016 15:16 - CONCLUSION: Multiple filling defects identified within the common bile duct at the site of prior stones. Naila Stauffer MD Chest X-Ray 05/20/16 4460 Signed Impressions: Service Date/Time: Friday, May 20, 2016 18:48 - CONCLUSION: No acute disease. Catracho Haas MD Cholangiopancreatography MRI 05/20/16 0000 Signed Impressions: Service Date/Time: Friday, May 20, 2016 21:23 - CONCLUSION: 1. Dilatation of the common bile duct and central intrahepatic biliary system with multiple filling defects in the distal common bile duct most consistent with gallstones. 2. Cholelithiasis. Catracho Haas MD Abdomen/Pelvis CT 05/20/16 0000 Signed Impressions: Service Date/Time: Friday, May 20, 2016 19:41 - CONCLUSION: 1. The kidneys and ureters are unremarkable in appearance with no renal calculi, mass or hydronephrosis. 2. Evidence of mild central intrahepatic biliary ductal dilatation and dilatation of the common bile duct with no definite filling defect or mass identified.. 3. Small hiatal hernia. 4. Cholelithiasis again noted with no gallbladder wall thickening or inflammatory change. Catracho Haas MD Abdomen: Non-tender A/P Assessment and Plan Choledocholithiasis s/p ERCP High risk for surgery for cardiac status ltol meals cont ow fat diet no surgical intervention D/C when ok with primary team Tony Calvert MD May 26, 2016 13:54
--- NOTE | 2016-05-26 13:58 | PD.CARD.PN ---
Subjective Subjective Remarks Came to see pt to discuss stress results, no symptoms. Objective Medications Administered Medications Medications (Trade) Dose Ordered Sig/Karyna Route PRN Reason Start Time Stop Time Status Last Admin Dose Admin Amlodipine Besylate (Norvasc) 5 mg DAILY PO 05/21/16 09:00 05/26/16 10:12 Anastrozole (Arimidex) 1 mg DAILY PO 05/21/16 09:00 05/26/16 10:11 Aspirin (Aspirin Chew) 81 mg DAILY PO 05/21/16 09:00 05/26/16 10:11 Bupropion HCl (Wellbutrin) 75 mg DAILY PO 05/21/16 09:00 05/26/16 10:11 Docusate Sodium (Colace) 100 mg BID PO 05/21/16 09:00 05/25/16 09:37 Duloxetine HCl (Cymbalta Dr) 60 mg DAILY PO 05/21/16 09:00 05/26/16 10:11 Metoprolol Succinate (Toprol Xl) 50 mg DAILY PO 05/21/16 09:00 05/26/16 10:11 IV Flush (NS Flush) 2 ml BID IV FLUSH 05/21/16 09:00 05/26/16 09:00 Ondansetron HCl (Zofran Inj) 4 mg Q6H PRN IV NAUSEA OR VOMITING 05/20/16 22:00 05/23/16 08:14 Miscellaneous Information 1 Q361D XX 05/20/16 22:00 05/20/16 22:00 Chlorhexidine Gluconate (Chlorhexidine 2% Cloth) Taper DAILY@04 TOP 05/21/16 04:00 05/17/17 03:59 05/24/16 03:14 Insulin Aspart (NovoLOG SUPPLEMENTAL SCALE) 1 Q6H SQ 05/20/16 22:00 05/26/16 04:00 Morphine Sulfate (Morphine Inj) 3 mg Q3H PRN IV PUSH prn pain 6-10 05/21/16 22:00 05/22/16 21:27 Labetalol HCl (Trandate Inj) 20 mg Q4H PRN IV PUSH SBP > 160 05/21/16 23:30 05/21/16 23:47 Insulin Detemir (Levemir Inj) 12 units Q12HR SQ 05/22/16 21:00 05/26/16 09:00 Pantoprazole Sodium (Protonix) 40 mg DAILY PO 05/25/16 09:00 05/26/16 10:11 Insulin Aspart 3 units 3 units TIDAC SQ 05/26/16 08:00 05/26/16 12:00 Piperacillin Sod/ Tazobactam Sod (Zosyn 3.375 Gm Premix) 50 ml @ 100 mls/hr Q6H IV 05/26/16 05:00 05/26/16 11:00 Vital Signs / I&O Vital Signs Date Time Temp Pulse Resp B/P Pulse Ox O2 Delivery O2 Flow Rate FiO2 05/26/16 09:55 Room Air 05/26/16 08:40 96 21 05/26/16 08:00 97.8 89 20 162/78 96 05/26/16 00:00 Room Air 05/26/16 00:00 97.6 83 17 104/61 97 05/25/16 20:00 98.0 83 18 126/64 95 05/25/16 20:00 Room Air 05/25/16 16:00 98.0 77 20 153/77 97 I/O 05/25/16 05/25/16 05/25/16 05/26/16 05/26/16 05/26/16 07:00 15:00 23:00 07:00 15:00 23:00 Intake Total 120 ml 240 ml 390 ml 120 ml Balance 120 ml 240 ml 390 ml 120 ml Intake Oral 120 ml 240 ml 240 ml 120 ml IV Total 150 ml # Voids 2 4 1 1 # Bowel Movements 2 1 Physical Exam GENERAL: This is a well-nourished, well-developed patient, in no apparent distress. CARDIOVASCULAR: Regular rate and rhythm without murmurs, gallops, or rubs. RESPIRATORY: Clear to auscultation. Breath sounds equal bilaterally. No wheezes , rales, or rhonchi. GASTROINTESTINAL: mild RUQ tenderness MUSCULOSKELETAL: Extremities without clubbing, cyanosis, or edema. NEURO: Alert & Oriented x4 to person, place, time, situation. Moves all ext x4 Laboratory Laboratory Tests Test 05/26/16 06:48 White Blood Count 5.3 TH/MM3 Red Blood Count 4.23 MIL/MM3 Hemoglobin 10.4 GM/DL Hematocrit 31.9 % Mean Corpuscular Volume 75.3 FL Mean Corpuscular Hemoglobin 24.5 PG Mean Corpuscular Hemoglobin 32.5 % Concent Red Cell Distribution Width 16.1 % Platelet Count 255 TH/MM3 Mean Platelet Volume 8.8 FL Neutrophils (%) (Auto) % Lymphocytes (%) (Auto) % Monocytes (%) (Auto) % Eosinophils (%) (Auto) % Basophils (%) (Auto) % Neutrophils # (Auto) TH/MM3 Lymphocytes # (Auto) TH/MM3 Monocytes # (Auto) TH/MM3 Eosinophils # (Auto) TH/MM3 Basophils # (Auto) TH/MM3 CBC Comment AUTO DIFF Differential Total Cells 100 Counted Neutrophils % (Manual) 68 % Band Neutrophils % 5 % Lymphocytes % 16 % Monocytes % 6 % Eosinophils % 4 % Neutrophils # (Manual) 3.9 TH/MM3 Myelocytes 1 % Differential Comment FINAL DIFF MANUAL Platelet Estimate NORMAL Platelet Morphology Comment NORMAL Ovalocytes 1+ Sodium Level 142 MEQ/L Potassium Level 2.8 MEQ/L Chloride Level 109 MEQ/L Carbon Dioxide Level 23.1 MEQ/L Anion Gap 10 MEQ/L Blood Urea Nitrogen 7 MG/DL Creatinine 0.74 MG/DL Estimat Glomerular Filtration 77 ML/MIN Rate Random Glucose 138 MG/DL Calcium Level 7.9 MG/DL Total Bilirubin 1.2 MG/DL Direct Bilirubin 0.7 MG/DL Indirect Bilirubin 0.5 MG/DL Aspartate Amino Transf 34 U/L (AST/SGOT) Alanine Aminotransferase 62 U/L (ALT/SGPT) Alkaline Phosphatase 470 U/L Total Protein 5.6 GM/DL Albumin 2.3 GM/DL Imaging Last Impressions Pelvis Ultrasound 05/24/16 0000 Signed Impressions: Service Date/Time: Tuesday, May 24, 2016 11:08 - CONCLUSION: Endometrium is top normal thickness for the patient's age. Uterus and ovaries are unremarkable. No free fluid within the cul-de-sac. Ravin Phoenix MD Myocardial Perfusion Scan Nuc Med 05/24/16 0000 Signed Impressions: Service Date/Time: Tuesday, May 24, 2016 14:01 - CONCLUSION: Positive for stress-induced ischemia.. RISK CATEGORY: Intermediate (1-3%% Annual Mortality Rate) Glenn Ulloa MD FACR GI Procedure 05/21/16 0000 Signed Impressions: Service Date/Time: Saturday, May 21, 2016 15:16 - CONCLUSION: Multiple filling defects identified within the common bile duct at the site of prior stones. Naila Stauffer MD Chest X-Ray 05/20/16 1827 Signed Impressions: Service Date/Time: Friday, May 20, 2016 18:48 - CONCLUSION: No acute disease. Catracho Haas MD Cholangiopancreatography MRI 05/20/16 0000 Signed Impressions: Service Date/Time: Friday, May 20, 2016 21:23 - CONCLUSION: 1. Dilatation of the common bile duct and central intrahepatic biliary system with multiple filling defects in the distal common bile duct most consistent with gallstones. 2. Cholelithiasis. Catracho Haas MD Abdomen/Pelvis CT 05/20/16 0000 Signed Impressions: Service Date/Time: Friday, May 20, 2016 19:41 - CONCLUSION: 1. The kidneys and ureters are unremarkable in appearance with no renal calculi, mass or hydronephrosis. 2. Evidence of mild central intrahepatic biliary ductal dilatation and dilatation of the common bile duct with no definite filling defect or mass identified.. 3. Small hiatal hernia. 4. Cholelithiasis again noted with no gallbladder wall thickening or inflammatory change. Catracho Haas MD Assessment and Plan Problem List: (1) Preop cardiovascular exam Assessment and Plan: Nuc stress positive for ischemia, given known CAD, pt isn' t cleared at this time, will defer to her primary flow worker Dr. Farias who can decide whether cath is required when he returns Friday. (2) Coronary artery disease Roney Lion MD May 26, 2016 13:58
[2016-05-26 16:00] VITALS: BP 136/60; PULSE 80; RESP 20; TEMP 98.5; O2SAT 96
[2016-05-26 16:34] LABS: BICARBONATE 25.1 MEQ/L (21.0-32.0)
[2016-05-26 20:00] VITALS: BP 131/63; PULSE 82; RESP 18; TEMP 98.3; O2SAT 100
--- NOTE | 2016-05-26 23:29 | HHI.PR ---
Subjective Remarks patient seen today at around 2 PM. She says she is feeling well. Denies any chest pain or shortness of breath. Denies any nausea or vomiting. Discussed with patient. Myocardial perfusion scan is positive for stress- induced ischemia. We'll need to defer to cardiology. Not cleared for cholecystectomy.continue holding up coagulation setting of postmenopausal uterine bleeding. Objective Vital Signs Date Time Temp Pulse Resp B/P Pulse Ox O2 Delivery O2 Flow Rate FiO2 05/26/16 20:00 98.3 82 18 131/63 100 05/26/16 16:00 98.5 80 20 136/60 96 05/26/16 12:00 98.2 71 20 157/74 95 05/26/16 09:55 Room Air 05/26/16 08:40 96 21 05/26/16 08:00 97.8 89 20 162/78 96 05/26/16 00:00 Room Air 05/26/16 00:00 97.6 83 17 104/61 97 I/O 05/25/16 05/25/16 05/25/16 05/26/16 05/26/16 05/26/16 07:00 15:00 23:00 07:00 15:00 23:00 Intake Total 120 ml 240 ml 390 ml 120 ml 600 ml Balance 120 ml 240 ml 390 ml 120 ml 600 ml Intake Oral 120 ml 240 ml 240 ml 120 ml 600 ml IV Total 150 ml # Voids 2 4 1 1 3 # Bowel Movements 2 1 0 Result Diagram: 05/26/16 0648 05/26/16 1520 Objective Remarks GENERAL: sitting up in recliner. Alert and oriented 3. SKIN: Warm and dry. HEAD: Normocephalic. EYES: No scleral icterus. No injection or drainage. NECK: Supple, trachea midline. No JVD. CARDIOVASCULAR: Regular rate and rhythm without murmurs, gallops, or rubs. RESPIRATORY: Breath sounds equal bilaterally. No accessory muscle use. GASTROINTESTINAL: Abdomen soft, non-tender, nondistended. no rebound or guarding. MUSCULOSKELETAL: No cyanosis, or edema. BACK: Nontender without obvious deformity. No CVA tenderness. A/P Assessment and Plan Patient is a 71-year-old female who came in with several day history of vomiting and abdominal discomfort/fullness. CT of the abdomen with dilated bile ducts, no obvious obstruction. Patient was status post ERCP and sphincterectomy with extraction of the CBD stones. //choledocholithiasis S/P ERCP with sphincterotomy and balloon extraction //Transaminitis - Continue Zosyn 3.375 g Q8hrs, Flagyl 500mg Q6hrs. - Will discontinue Flagyl as monotherapy with Zosyn 3.375 Q6hrs should be adequate. - General surgery following. - Dr. Farias (Cardiology) initially cleared for discharge on 05/24/2016. - However, a nuclear stress test was done which shows EF 61%, no fixed defects were evident. - Patient can likely be cleared for Lap cholecystectomy. Final clearance should be obtained from Cardiology. - General surgery requests 5 days off of Brilinta. Last dose given on 2016. -Await cardiology clearance. //Dark stool with positive Hemoccult initially, second specimen was negative. - Off heparin, SCDs for DVT prop - CBC stable 10.8/33 - GI signed off on 05/25/2016. //Vaginal bleeding - has had it for about 1 month, started prior to hospital admission. - History of breast cancer - PROFESSOR OF SPECIAL EDUCATION Consult. No abnormalities and ultrasound. Endometrium is normal thickness for the patient age. Uterus and ovaries are unremarkable. No free fluid within the cul-de-sac. - Appreciate Gravity Meter Observer evaluation. Outpatient endometrial biopsy or transvaginal US recommended. -Will need a follow-up with gynecology as outpatient for further workup.. //Hypertension //Coronary artery disease s/p PCI/Stent to LAD on 06/01/2015. - Patient has been on Brilinta, BB, CCB - Cardiology discontinued Brilinta on 05/24/2016 in anticipation of Laparoscopic cholecystectomy. - Continue Amlodipine 5mg Qday, Metoprolol succ 50mg Qday. //Mild CHANELLE- resolved. 1.14 --> 0.70. //Hypokalemia- -05/26. Replace potassium Continue to monitor //DM type 2 - continue Levemir 12 units bid and sliding scale - Will add pre-meal insulin 3 units TIDAC if premeal glucose > 110 -Continue to monitor Full code. SCDs. Jaun Mcarthur MD May 26, 2016 23:29
[2016-05-27] VITALS: BP 137/66; PULSE 69; RESP 18; TEMP 98.1; O2SAT 95
[2016-05-27] MEDS: INSULIN ASPART SUPPLEMENTAL SCALE SQ SCH ×4 (04:00→21:24)
[2016-05-27] MEDS: PIPERACIL-TAZO 3.375 GM PREMIX 50 ML IV SCH ×4 (05:02→21:25)
[2016-05-27] MEDS: INSULIN ASPART 1,000 UNITS/10 ML VIAL SQ SCH ×3 (08:00→17:33)
[2016-05-27] MEDS: DOCUSATE SODIUM 100 MG CAP PO SCH ×2 (09:00→21:00)
[2016-05-27] MEDS: ASPIRIN 81 MG CHEW TAB PO SCH (09:47)
[2016-05-27] MEDS: SODIUM CHLORIDE 0.9% FLUSH 5 ML FLUSH IV FLUSH SCH ×2 (09:47→21:25)
[2016-05-27] MEDS: ANASTROZOLE 1 MG TAB PO SCH (09:47)
[2016-05-27] MEDS: PANTOPRAZOLE SOD 40 MG DELAYED RELEASE TAB PO SCH (09:48)
[2016-05-27] MEDS: INSULIN DETEMIR 100 UNITS/ML VIAL SQ SCH ×2 (09:48→21:24)
[2016-05-27] MEDS: DULoxetine HCl DR 60 MG CAP PO SCH (09:48)
[2016-05-27] MEDS: amLODIPine BESYLATE 5 MG TAB PO SCH (09:48)
[2016-05-27] MEDS: METOPROLOL SUCCINATE 50 MG EXTENDED RELEASE TAB PO SCH (09:48)
[2016-05-27] MEDS: buPROPion HCL 75 MG TAB PO SCH (09:49)
[2016-05-27 09:57] VITALS: BP 150/67; PULSE 81; RESP 18; TEMP 97.3; O2SAT 96
[2016-05-27 12:00] VITALS: BP 126/60; PULSE 79; RESP 18; TEMP 96.6; O2SAT 93
[2016-05-27 16:00] VITALS: BP 132/63; PULSE 72; RESP 16; TEMP 96.8; O2SAT 97
[2016-05-27 20:00] VITALS: BP 151/68; PULSE 57; RESP 18; TEMP 98.2; O2SAT 97
--- NOTE | 2016-05-27 23:52 | HHI.PR ---
Subjective Remarks patient seen today around 5 PM. Says she is feeling well. Denies any chest pain or shortness of breath. Denies any abdominal pain She is eating well. Objective Vital Signs Date Time Temp Pulse Resp B/P Pulse Ox O2 Delivery O2 Flow Rate FiO2 05/27/16 20:00 98.2 57 18 151/68 97 05/27/16 16:00 96.8 72 16 132/63 97 05/27/16 12:11 93 Room Air 05/27/16 12:00 96.6 79 18 126/60 93 05/27/16 09:57 97.3 81 18 150/67 96 05/27/16 04:00 05/27/16 00:00 98.1 69 18 137/66 95 05/27/16 00:00 Room Air I/O 05/26/16 05/26/16 05/26/16 05/27/16 05/27/16 05/27/16 07:00 15:00 23:00 07:00 15:00 23:00 Intake Total 120 ml 600 ml 240 ml 100 ml 600 ml 100 ml Balance 120 ml 600 ml 240 ml 100 ml 600 ml 100 ml Intake Oral 120 ml 600 ml 240 ml 600 ml IV Total 100 ml 100 ml # Voids 1 3 2 0 # Bowel Movements 0 0 0 2 Result Diagram: 05/26/16 0648 05/26/16 1520 Objective Remarks GENERAL: sitting up on edge of bed. Appears comfortable.. Alert and oriented 3. SKIN: Warm and dry. HEAD: Normocephalic. EYES: No scleral icterus. No injection or drainage. NECK: Supple, trachea midline. No JVD. CARDIOVASCULAR: Regular rate and rhythm without murmurs, gallops, or rubs. RESPIRATORY: Breath sounds equal bilaterally. No accessory muscle use. GASTROINTESTINAL: Abdomen soft, non-tender, nondistended. no rebound or guarding.exam unchanged. MUSCULOSKELETAL: No cyanosis, or edema. BACK: Nontender without obvious deformity. No CVA tenderness. A/P Assessment and Plan Patient is a 71-year-old female who came in with several day history of vomiting and abdominal discomfort/fullness. CT of the abdomen with dilated bile ducts, no obvious obstruction. Patient was status post ERCP and sphincterectomy with extraction of the CBD stones. //choledocholithiasis S/P ERCP with sphincterotomy and balloon extraction //Transaminitis - Continue Zosyn 3.375 g Q8hrs, Flagyl 500mg Q6hrs. - Will discontinue Flagyl as monotherapy with Zosyn 3.375 Q6hrs should be adequate. - General surgery following. - Dr. Farias (Cardiology) initially cleared for discharge on 05/24/2016. - However, a nuclear stress test was done which shows EF 61%, no fixed defects were evident. - Patient can likely be cleared for Lap cholecystectomy. Final clearance should be obtained from Cardiology. - General surgery requests 5 days off of Brilinta. Last dose given on 2016. -Await cardiology clearance. //Dark stool with positive Hemoccult initially, second specimen was negative. - Off heparin, SCDs for DVT prop - CBC stable 10.8/33 - GI signed off on 05/25/2016. //Vaginal bleeding - has had it for about 1 month, started prior to hospital admission. - History of breast cancer - CORE DRILL OPERATOR Consult. No abnormalities and ultrasound. Endometrium is normal thickness for the patient age. Uterus and ovaries are unremarkable. No free fluid within the cul-de-sac. - Appreciate Wringer Machine Operator evaluation. Outpatient endometrial biopsy or transvaginal US recommended. -Will need a follow-up with gynecology as outpatient for further workup.. //Hypertension //Coronary artery disease s/p PCI/Stent to LAD on 06/01/2015. - Patient has been on Brilinta, BB, CCB - Cardiology discontinued Brilinta on 05/24/2016 in anticipation of Laparoscopic cholecystectomy. - Continue Amlodipine 5mg Qday, Metoprolol succ 50mg Qday. //Mild CHANELLE- resolved. 1.14 --> 0.70. //Hypokalemia- -05/26. Replace potassium. 2.8. Repeat 4.0. Likely false low. Continue to monitor //DM type 2 - continue Levemir 12 units bid and sliding scale - Will add pre-meal insulin 3 units TIDAC if premeal glucose > 110 -Continue to monitor Full code. SCDs. Jaun Mcarthur MD May 27, 2016 23:52
[2016-05-28] VITALS: BP 117/70; PULSE 76; RESP 18; TEMP 98.1; O2SAT 94
[2016-05-28 00:29] VITALS: O2SAT 94
[2016-05-28 04:00] VITALS: BP 146/65; PULSE 81; RESP 18; TEMP 98.2; O2SAT 97
[2016-05-28] MEDS: INSULIN ASPART SUPPLEMENTAL SCALE SQ SCH ×2 (04:00→10:27)
[2016-05-28 05:40] LABS: AUTOMATED NEUTROPHIL # 4.3 TH/MM3 (1.8-7.7); BASOPHIL # 0.1 TH/MM3 (0-0.2); BASOPHIL % 0.9 % (0.0-2.0); EOSINOPHIL # 0.2 TH/MM3 (0-0.4); EOSINOPHIL % 3.5 % (0.0-4.0); HEMATOCRIT 32.2 % (35.0-46.0); HEMO FLAGS DIFF FINAL; LYMPH % 24.2 % (9.0-44.0); LYMPHOCYTE # 1.7 TH/MM3 (1.0-4.8); MEAN CELL VOLUME 75.9 FL (80.0-100.0); MEAN CORPUSCULAR HEMOGLOBIN 25.5 PG (27.0-34.0); MEAN CORPUSCULAR HGB CONC 33.5 % (32.0-36.0); MONO % 10.7 % (0.0-8.0); NEUT % 60.7 % (16.0-70.0); PLATELET COUNT 293 TH/MM3 (150-450); RED BLOOD COUNT 4.24 MIL/MM3 (4.00-5.30); RED CELL DISTRIBUTION WIDTH 16.3 % (11.6-17.2); WHITE BLOOD COUNT 7.1 TH/MM3 (4.0-11.0)
[2016-05-28] MEDS: PIPERACIL-TAZO 3.375 GM PREMIX 50 ML IV SCH ×2 (06:06→12:02)
[2016-05-28 06:07] LABS: BICARBONATE 25.3 MEQ/L (21.0-32.0); POTASSIUM 3.4 MEQ/L (3.5-5.1)
[2016-05-28 08:00] VITALS: BP 153/77; PULSE 78; RESP 16; TEMP 98.6; O2SAT 94
[2016-05-28] MEDS: INSULIN ASPART 1,000 UNITS/10 ML VIAL SQ SCH ×2 (08:00→12:02)
[2016-05-28 08:20] VITALS: O2SAT 94
[2016-05-28] MEDS: SODIUM CHLORIDE 0.9% FLUSH 5 ML FLUSH IV FLUSH SCH (09:00)
[2016-05-28] MEDS ORDERED: POTASSIUM CHLORIDE 10 MEQ CONTROLLED RELEASE TAB PO ONE (09:15)
[2016-05-28] MEDS ORDERED: MAGNESIUM SULFATE 1 GM PREMIX 100 ML IV ONE (09:15)
[2016-05-28] MEDS: ASPIRIN 81 MG CHEW TAB PO SCH (10:00)
[2016-05-28] MEDS: DOCUSATE SODIUM 100 MG CAP PO SCH (10:00)
[2016-05-28] MEDS: DULoxetine HCl DR 60 MG CAP PO SCH (10:00)
[2016-05-28] MEDS: ANASTROZOLE 1 MG TAB PO SCH (10:00)
[2016-05-28] MEDS: PANTOPRAZOLE SOD 40 MG DELAYED RELEASE TAB PO SCH (10:01)
[2016-05-28] MEDS: amLODIPine BESYLATE 5 MG TAB PO SCH (10:01)
[2016-05-28] MEDS: buPROPion HCL 75 MG TAB PO SCH (10:01)
[2016-05-28] MEDS: METOPROLOL SUCCINATE 50 MG EXTENDED RELEASE TAB PO SCH (10:01)
--- NOTE | 2016-05-28 10:10 | PD.CARD.PN ---
Subjective Subjective Remarks No angina Objective Medications Current Medications Medications (Trade) Dose Ordered Sig/Karyna Route Start Time Stop Time Status Last Admin (Norvasc) 5 mg DAILY PO 05/21/16 09:00 05/28/16 10:01 (Arimidex) 1 mg DAILY PO 05/21/16 09:00 05/28/16 10:00 (Aspirin Chew) 81 mg DAILY PO 05/21/16 09:00 05/28/16 10:00 (Wellbutrin) 75 mg DAILY PO 05/21/16 09:00 05/28/16 10:01 (Colace) 100 mg BID PO 05/21/16 09:00 05/28/16 10:00 (Cymbalta Dr) 60 mg DAILY PO 05/21/16 09:00 05/28/16 10:00 (Toprol Xl) 50 mg DAILY PO 05/21/16 09:00 05/28/16 10:01 (NS Flush) 2 ml UNSCH PRN IV FLUSH 05/20/16 21:30 (NS Flush) 2 ml BID IV FLUSH 05/21/16 09:00 05/28/16 09:00 (Zofran Inj) 4 mg Q6H PRN IV 05/20/16 22:00 05/23/16 08:14 (D50w (Vial) Inj) 25 ml UNSCH PRN IV PUSH 05/20/16 21:30 (Glucagon Inj) 1 mg UNSCH PRN OTHER 05/20/16 21:30 (NovoLOG SUPPLEMENTAL SCALE) 1 Q6H SQ 05/20/16 22:00 05/27/16 21:24 (Morphine Inj) 3 mg Q3H PRN IV PUSH 05/21/16 22:00 05/22/16 21:27 (Trandate Inj) 20 mg Q4H PRN IV PUSH 05/21/16 23:30 05/21/16 23:47 (Levemir Inj) 12 units Q12HR SQ 05/22/16 21:00 05/27/16 21:24 (Protonix) 40 mg DAILY PO 05/25/16 09:00 05/28/16 10:01 Insulin Aspart 3 units 3 units TIDAC SQ 05/26/16 08:00 05/27/16 17:33 Piperacillin Sod/ Tazobactam Sod 50 ml @ 100 mls/hr Q6H IV 05/26/16 05:00 05/28/16 06:06 (Magnesium Sulfate 1 Gm Premix) 100 ml @ 100 mls/hr ONCE ONCE IV 05/28/16 09:15 05/28/16 10:14 05/28/16 10:01 Vital Signs / I&O Vital Signs Date Time Temp Pulse Resp B/P Pulse Ox O2 Delivery O2 Flow Rate FiO2 05/28/16 08:20 94 21 05/28/16 08:00 98.6 78 16 153/77 94 05/28/16 04:00 98.2 81 18 146/65 97 05/28/16 00:29 94 05/28/16 00:00 98.1 76 18 117/70 94 05/27/16 20:00 Room Air 05/27/16 20:00 98.2 57 18 151/68 97 05/27/16 16:00 96.8 72 16 132/63 97 05/27/16 12:11 93 Room Air 05/27/16 12:00 96.6 79 18 126/60 93 I/O 05/27/16 05/27/16 05/27/16 05/28/16 05/28/16 05/28/16 07:00 15:00 23:00 07:00 15:00 23:00 Intake Total 100 ml 600 ml 460 ml Balance 100 ml 600 ml 460 ml Intake Oral 600 ml 360 ml IV Total 100 ml 100 ml # Voids 0 4 # Bowel Movements 0 2 Physical Exam Alert Chest Clear CV S1S2 RRR No edema Laboratory Laboratory Tests Test 05/28/16 05:11 White Blood Count 7.1 TH/MM3 Red Blood Count 4.24 MIL/MM3 Hemoglobin 10.8 GM/DL Hematocrit 32.2 % Mean Corpuscular Volume 75.9 FL Mean Corpuscular Hemoglobin 25.5 PG Mean Corpuscular Hemoglobin 33.5 % Concent Red Cell Distribution Width 16.3 % Platelet Count 293 TH/MM3 Mean Platelet Volume 8.3 FL Neutrophils (%) (Auto) 60.7 % Lymphocytes (%) (Auto) 24.2 % Monocytes (%) (Auto) 10.7 % Eosinophils (%) (Auto) 3.5 % Basophils (%) (Auto) 0.9 % Neutrophils # (Auto) 4.3 TH/MM3 Lymphocytes # (Auto) 1.7 TH/MM3 Monocytes # (Auto) 0.8 TH/MM3 Eosinophils # (Auto) 0.2 TH/MM3 Basophils # (Auto) 0.1 TH/MM3 CBC Comment DIFF FINAL Differential Comment Sodium Level 142 MEQ/L Potassium Level 3.4 MEQ/L Chloride Level 106 MEQ/L Carbon Dioxide Level 25.3 MEQ/L Anion Gap 11 MEQ/L Blood Urea Nitrogen 7 MG/DL Creatinine 0.83 MG/DL Estimat Glomerular Filtration 68 ML/MIN Rate Random Glucose 143 MG/DL Calcium Level 8.1 MG/DL Magnesium Level 2.0 MG/DL Assessment and Plan Problem List: (1) Preop cardiovascular exam Assessment and Plan: No angina (2) Coronary artery disease Assessment and Plan: + ischemia by SPECT. Will discuss with Dr. Mcarthur. Long talk with patient Evgeny Farias MD May 28, 2016 10:10
[2016-05-28 12:00] VITALS: BP 160/76; PULSE 79; RESP 16; TEMP 97.5; O2SAT 96
[2016-05-28] MEDS: INSULIN DETEMIR 100 UNITS/ML VIAL SQ SCH (12:07)
--- NOTE | 2016-05-28 12:08 | HHI.PR ---
Subjective Subjective Notes Tolerating diet, no abdominal pain. Objective Vitals/I&O Vital Signs Date Time Temp Pulse Resp B/P Pulse Ox O2 Delivery O2 Flow Rate FiO2 05/28/16 12:00 97.5 79 16 160/76 96 05/28/16 08:20 21 05/27/16 20:00 Room Air Labs Laboratory Tests Test 05/28/16 05:11 White Blood Count 7.1 Red Blood Count 4.24 Hemoglobin 10.8 Hematocrit 32.2 Mean Corpuscular Volume 75.9 Mean Corpuscular Hemoglobin 25.5 Mean Corpuscular Hemoglobin 33.5 Concent Red Cell Distribution Width 16.3 Platelet Count 293 Mean Platelet Volume 8.3 Neutrophils (%) (Auto) 60.7 Lymphocytes (%) (Auto) 24.2 Monocytes (%) (Auto) 10.7 Eosinophils (%) (Auto) 3.5 Basophils (%) (Auto) 0.9 Neutrophils # (Auto) 4.3 Lymphocytes # (Auto) 1.7 Monocytes # (Auto) 0.8 Eosinophils # (Auto) 0.2 Basophils # (Auto) 0.1 CBC Comment DIFF FINAL Differential Comment Sodium Level 142 Potassium Level 3.4 Chloride Level 106 Carbon Dioxide Level 25.3 Anion Gap 11 Blood Urea Nitrogen 7 Creatinine 0.83 Estimat Glomerular Filtration 68 Rate Random Glucose 143 Calcium Level 8.1 Magnesium Level 2.0 Date/Time Procedure Status Source Growth 05/25/16 10:15 Stool Occult Blood (LALO) - Final Complete Stool Stool HEMOCCULT POSITIVE Radiology Last Impressions GI Procedure 05/21/16 0000 Signed Impressions: Service Date/Time: Saturday, May 21, 2016 15:16 - CONCLUSION: Multiple filling defects identified within the common bile duct at the site of prior stones. Naila Stauffer MD Chest X-Ray 05/20/16 8267 Signed Impressions: Service Date/Time: Friday, May 20, 2016 18:48 - CONCLUSION: No acute disease. Catracho Haas MD Cholangiopancreatography MRI 05/20/16 0000 Signed Impressions: Service Date/Time: Friday, May 20, 2016 21:23 - CONCLUSION: 1. Dilatation of the common bile duct and central intrahepatic biliary system with multiple filling defects in the distal common bile duct most consistent with gallstones. 2. Cholelithiasis. Catracho Haas MD Abdomen/Pelvis CT 05/20/16 0000 Signed Impressions: Service Date/Time: Friday, May 20, 2016 19:41 - CONCLUSION: 1. The kidneys and ureters are unremarkable in appearance with no renal calculi, mass or hydronephrosis. 2. Evidence of mild central intrahepatic biliary ductal dilatation and dilatation of the common bile duct with no definite filling defect or mass identified.. 3. Small hiatal hernia. 4. Cholelithiasis again noted with no gallbladder wall thickening or inflammatory change. Catracho Haas MD Narrative Exam NAD, awake and alert Abd: soft, nontender A/P Assessment and Plan 71 yo F with multiple medical comorbidities with choledocholithiasis status post ERCP with sphincterotomy and stone extraction. Ok for dc from gen surgery standpoint. Ok for Willis. She will see me as an outpatient but currently no surgery planned due to high risk cardiac status. Alexander Kilgore MD May 28, 2016 12:08
[2016-05-28] MEDS ORDERED: AUGM875T PO (12:11)
--- NOTE | 2016-05-28 12:32 | HHI.FF ---
Face to Face Verification Diagnosis: (1) Preop cardiovascular exam (2) Coronary artery disease (3) Nausea & vomiting (4) Choledocholithiasis with acute cholecystitis Physical Therapy Order: Evaluate and Treat Home Health Nursing Order: Nursing assessment with vital signs I have seen patient Charla Davis on 05/28/16. My clinical findings support the need for the requested home health care services because: Deconditioned w/ increased weakness I certify that my clinical findings support that this patient is homebound because: Unsafe to leave home unassisted Jaun Mcarthur MD May 28, 2016 12:32
--- NOTE | 2016-06-06 01:02 | HHI.DS ---
Discharge Summary Admission Date May 20, 2016 at 20:50 Discharge Date: May 28, 2016 Admitting Diagnosis Hyperglycemia; transamintis; nausea/vomiting; elevated trop (1) Hypertension ICD Code: I10 (2) Diabetes mellitus ICD Code: E11.9 (3) Transaminitis ICD Code: R74.0 (4) Choledocholithiasis with acute cholecystitis ICD Code: K80.42 (5) Dilated bile duct ICD Code: K83.8 Procedures Status post ERCP CONCLUSION: Multiple filling defects identified within the common bile duct at the site of prior stones. 05/24/2016 - Procedure narrative: Transthoracic echocardiography. Image quality was poor. Scanning was performed from the parasternal, apical, and subcostal acoustic windows. - Left ventricle: The cavity size was normal. Wall thickness was normal. Systolic function was possibly low normal. Endocardial borders are not well visualized. The estimated ejection fraction was roughly 50%. Regional wall motion abnormalities cannot be excluded. - Mitral valve: Trace regurgitation. - Tricuspid valve: Trace regurgitation. Brief History - From Admission 71 y/o woman with multiple medical problems including DM, HTN, CAD presents with several day history of vomiting and abdominal discomfort/fullness. No substernl cheat pressure or pain (which she gets with angina). LFTs all elevated and consistent with biliary obstruction. CT abdomen with dilated bile ducts, no obvious obstruction. Going now for MRCP. Imaging Last Impressions Pelvis Ultrasound 05/24/16 0000 Signed Impressions: Service Date/Time: Tuesday, May 24, 2016 11:08 - CONCLUSION: Endometrium is top normal thickness for the patient's age. Uterus and ovaries are unremarkable. No free fluid within the cul-de-sac. Ravin Phoenix MD Myocardial Perfusion Scan Nuc Med 05/24/16 0000 Signed Impressions: Service Date/Time: Tuesday, May 24, 2016 14:01 - CONCLUSION: Positive for stress-induced ischemia.. RISK CATEGORY: Intermediate (1-3%% Annual Mortality Rate) Glenn Ulloa MD FACR GI Procedure 05/21/16 0000 Signed Impressions: Service Date/Time: Saturday, May 21, 2016 15:16 - CONCLUSION: Multiple filling defects identified within the common bile duct at the site of prior stones. Naila Stauffer MD Chest X-Ray 05/20/16 1827 Signed Impressions: Service Date/Time: Friday, May 20, 2016 18:48 - CONCLUSION: No acute disease. Catracho Haas MD Cholangiopancreatography MRI 05/20/16 0000 Signed Impressions: Service Date/Time: Friday, May 20, 2016 21:23 - CONCLUSION: 1. Dilatation of the common bile duct and central intrahepatic biliary system with multiple filling defects in the distal common bile duct most consistent with gallstones. 2. Cholelithiasis. Catracho Haas MD Abdomen/Pelvis CT 05/20/16 0000 Signed Impressions: Service Date/Time: Friday, May 20, 2016 19:41 - CONCLUSION: 1. The kidneys and ureters are unremarkable in appearance with no renal calculi, mass or hydronephrosis. 2. Evidence of mild central intrahepatic biliary ductal dilatation and dilatation of the common bile duct with no definite filling defect or mass identified.. 3. Small hiatal hernia. 4. Cholelithiasis again noted with no gallbladder wall thickening or inflammatory change. Catracho Haas MD PE at Discharge GENERAL: AOx3, NAD. SKIN: Warm and dry. HEAD: Normocephalic. EYES: No scleral icterus. No injection or drainage. NECK: Supple, trachea midline. No JVD or lymphadenopathy. CARDIOVASCULAR: Regular rate and rhythm without murmurs, gallops, or rubs. RESPIRATORY: Breath sounds equal bilaterally. No accessory muscle use. GASTROINTESTINAL: Abdomen soft, non-tender, nondistended. MUSCULOSKELETAL: No cyanosis, or edema. BACK: Nontender without obvious deformity. No CVA tenderness. Hospital Course Patient was admitted, treated with IV antibiotics. Gastroenterology was consult and patient underwent ERCP as above. General surgery was consult and, planned for possible cholecystectomy, however nuclear stress with small perfusion defect. Patient had no active chest pain, and denied any exertional chest pain. Discussed with cardiology on 05/28, finds this to be consistent with previous studies, and have cleared her for discharge. Follow-up with cardiology as outpatient. follow-up with surgery as outpatient. Will continue Augmentin to complete treatment course for cholecystitis. Surgery opting for nonoperative management at this time. Patient is a 71-year-old female who came in with several day history of vomiting and abdominal discomfort/fullness. CT of the abdomen with dilated bile ducts, no obvious obstruction. Patient was status post ERCP and sphincterectomy with extraction of the CBD stones. //choledocholithiasis S/P ERCP with sphincterotomy and balloon extraction //Transaminitis - Continue Zosyn 3.375 g Q8hrs, Flagyl 500mg Q6hrs. - Will discontinue Flagyl as monotherapy with Zosyn 3.375 Q6hrs should be adequate. - General surgery following. - Dr. Farias (Cardiology) initially cleared for discharge on 05/24/2016. - However, a nuclear stress test was done which shows EF 61%, no fixed defects were evident. - Patient can likely be cleared for Lap cholecystectomy. Final clearance should be obtained from Cardiology. - General surgery requests 5 days off of Brilinta. Last dose given on 2016. -Await cardiology clearance. //Dark stool with positive Hemoccult initially, second specimen was negative. - Off heparin, SCDs for DVT prop - CBC stable 10.8/33 - GI signed off on 05/25/2016. //Vaginal bleeding - has had it for about 1 month, started prior to hospital admission. - History of breast cancer - COMMISSIONED POLICE OFFICER Consult. No abnormalities and ultrasound. Endometrium is normal thickness for the patient age. Uterus and ovaries are unremarkable. No free fluid within the cul-de-sac. - Appreciate Clinical Research Director evaluation. Outpatient endometrial biopsy or transvaginal US recommended. -Will need a follow-up with gynecology as outpatient for further workup.. //Hypertension //Coronary artery disease s/p PCI/Stent to LAD on 06/01/2015. - Patient has been on Brilinta, BB, CCB - Cardiology discontinued Brilinta on 05/24/2016 in anticipation of Laparoscopic cholecystectomy. - Continue Amlodipine 5mg Qday, Metoprolol succ 50mg Qday. //Mild CHANELLE- resolved. 1.14 --> 0.70. //Hypokalemia- -05/26. Replace potassium. 2.8. Repeat 4.0. Likely false low. Continue to monitor //DM type 2 - continue Levemir 12 units bid and sliding scale - Will add pre-meal insulin 3 units TIDAC if premeal glucose > 110 -Continue to monitor Full code. SCDs. Pt Condition on Discharge: Good Discharge Disposition: Discharge Home Discharge Time: <= 30 minutes Discharge Instructions DIET: Follow Instructions for: Heart Healthy Diet, Diabetic Diet Activities you can perform: Regular-No Restrictions Follow up Referrals: Cardiology - 1 Week with Evgeny Farias MD LINE CONSTRUCTION SUPERINTENDENT - 2 Weeks Surgical - 2 Weeks with Alexander Kilgore MD New Medications: Amoxicillin-Clavulanate (Augmentin) 875-125 mg Tab 875 MG PO BID not for use in CrCl <30 ml/min. Infection #14 Ref 0 TAB Continued Medications: Acetaminophen (Tylenol) 325 Mg Tab 650 MG PO Q4HR PRN PAIN AND/OR FEVER Amlodipine Besylate (Norvasc) 5 Mg Tab 5 MG PO DAILY Anastrozole (Anastrozole) 1 Mg Tab 1 MG PO DAILY Aspirin (Aspirin) 81 Mg Tab 81 MG PO DAILY Atorvastatin 40 mg (Atorvastatin 40 mg) 40 Mg Tab 40 MG PO HS TAB () 90 Mg Tab 90 MG PO BID CAD #60 Ref 0 TAB Bupropion Hcl (Bupropion Hcl) 75 Mg Tab 75 MG PO DAILY TAB Docusate Sodium (Colace) 100 Mg Cap 100 MG PO BID DULOXETINE HCl (Cymbalta) 60 Mg Cap 60 MG PO DAILY Glimepiride (Amaryl) 4 Mg Tab 4 MG PO DAILYAC Insulin Human Regular (Novolin R) 100 Units/Ml Inj 17 UNITS SQ HS #10 ML Loperamide Hcl (Imodium A-D) 2 Mg Tab 4 MG PO ONCE DO NOT EXCEED 8 CAPSULES/TABLETS 24 HOURS PRN ONSET OF DIARRHEA TAB Metformin ER 24 HR (Metformin ER 24 HR) 1,000 Mg Tab 1000 MG PO BIDPC Metoprolol Succinate (Toprol Xl) 50 Mg Tabcr 50 MG PO DAILY Nitroglycerin (Nitrostat) 0.4 Mg Sub 0.4 MG SL DIRECTED PRN CHEST PAIN #100 SUB () 100 Units/Ml Inj 38 UNITS SQ DAILY DM Days 30 INJECTION Jaun Mcarthur MD Jun 06, 2016 01:01
== END 2016-05-28 14:00 | disposition home health service (06) | DRG 872 ==
LOC: NEPA 17:14 → NEDA 20:50 → HIME 23:00 → N04B 05-22 00:11
PROVIDERS: ADMIT Internal Medicine; ATTEND Internal Medicine
PROC: 0FC98ZZ Extirpation of Matter from Common Bile Duct, Via Natural or Artificial Opening Endoscopic (ICD-10-PCS; principal; 2016-05-21 14:50)
DX: A41.9 Sepsis, unspecified organism (principal); N17.9 Acute kidney failure, unspecified; K80.63 Calculus of gallbladder and bile duct with acute cholecystitis with obstruction; E11.65 Type 2 diabetes mellitus with hyperglycemia; E87.1 Hypo-osmolality and hyponatremia; E88.81 Metabolic syndrome and other insulin resistance; R65.20 Severe sepsis without septic shock; I10 Essential (primary) hypertension; E86.0 Dehydration; G47.33 Obstructive sleep apnea (adult) (pediatric); R10.84 Generalized abdominal pain; I25.119 Atherosclerotic heart disease of native coronary artery with unspecified angina pectoris; G62.9 Polyneuropathy, unspecified; E78.5 Hyperlipidemia, unspecified; E87.6 Hypokalemia; R19.5 Other fecal abnormalities; N95.0 Postmenopausal bleeding; K21.9 Gastro-esophageal reflux disease without esophagitis; D50.9 Iron deficiency anemia, unspecified; E66.01 Morbid (severe) obesity due to excess calories; M19.90 Unspecified osteoarthritis, unspecified site; F32.9 Major depressive disorder, single episode, unspecified; F41.9 Anxiety disorder, unspecified; Z68.34 Body mass index [BMI] 34.0-34.9, adult; Z79.4 Long term (current) use of insulin; Z80.3 Family history of malignant neoplasm of breast; Z82.49 Family history of ischemic heart disease and other diseases of the circulatory system; Z85.3 Personal history of malignant neoplasm of breast; Z86.73 Personal history of transient ischemic attack (TIA), and cerebral infarction without residual deficits; Z87.891 Personal history of nicotine dependence; Z90.10 Acquired absence of unspecified breast and nipple; Z92.21 Personal history of antineoplastic chemotherapy; Z95.5 Presence of coronary angioplasty implant and graft
CPT/HCPCS: 71010; 74177; 74181; 74330; 76377; 76856; 76937; 78452; 80048; 80053; 80076; 81001; 82010; 82272; 82550; 82805; 82948; 83605; 83690; 83735; 84100; 84484; 85007; 85025; 85027; 85610; 85730; 87040; 87641; 93005; 93017; 93306; 96361; 96374; A9502; C1769; C9113; J0280; J1610; J1644; J1815; J2270; J2405; J2543; J2785; J3475; J3480; J7030; Q9967